=== PATIENT | male | born 1975 | race Caucasian/White ===

== ENCOUNTER 2018-04-14 21:21 | Emergency (ER) | payer OTHER, SELFPAY ==
[2018-04-14] VITALS (20 sets, daily range): BP systolic 106–144; BP diastolic 63–89; PULSE 68–91; RESP 14–32; TEMP 36.5; O2SAT 92–96
--- NOTE | 2018-04-14 21:28 | DI.RAD_ITS ---
SYMPTOM/DIAGNOSIS: LEFT UPPER CHEST PAIN CHEST X-RAY: PA and lateral. Comparison 01/12/16. The heart is normal in size. The lungs are clear. The mediastinal structures and pleura appear intact. CONCLUSION: Normal chest.
--- NOTE | 2018-04-14 21:29 | W.ED.GENAD ---
Discharge Plan Disposition Patient Disposition: HOME Condition: Improving Discharge Details Chief Complaint: Chest Pain Clinical Impression: Atypical chest pain Primary Care Provider: Sharon Sanchez ED Provider: John Abbott Home Meds and New Rx's Prescriptions: Continue ustekinumab [Stelara] 90 MG/ML syringe 90 mg SQ DIRECTED RF: 0 Discharge Instructions Instructions: Chest Pain (ED) Additional Instructions: Return if you develop recurrent chest discomfort, shortness of breath, or any other acute concerns Medical Decision Making 42-year-old male presents the emergency department complaining of the abrupt onset of left anterior chest pain while cleaning his hot tub this evening. 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 He states he is no longer using illicit drugs. He arrives with improved chest pain. His vital signs are normal. Differential diagnosis includes atypical chest pain, chest wall strain, ACS. Patient placed in playground monitor, labs obtained, referred for EKG and chest XR. Diagnostics are unremarkable. Patient observed on playground monitor with repeat troponin obtained and negative as well. No further episodes of chest pain. Stable and appropriate discharged home. ECG Data Attestation: I personally reviewed and interpreted this ECG (s) as follows: Interpretation: Normal sinus rhythm, rate of 85, QRS is narrow, no ST segment elevation. q waves present in I and aVL HPI General Date/Time Provider Initiated Documentation: 04/14/18 21:22. Limitations to Documentation: no limitations. Information obtained by: patient. History of Present Illness 42 year old M presents to the emergency department with the chief complaint of Left-sided chest pain, described as moderate, Quality is described as dull, and is localized to the chest and left. Patient reports no radiation. Patient started experiencing this minute(s) and it has been now resolved. No relieving factors improve symptom(s), No exacerbating factors reported . Patient notes diaphoresis; denies headaches, shortness of breath and syncope. HPI Narrative: 42-year-old male states he was cleaning out his hot tub when he abruptly developed left-sided anterior dull chest pain. It was nonradiating. Associated with diaphoresis. Did not have any shortness of breath. He did not note any palpitations. He states that he has recently been well. No lower extremity pain or swelling peer Related Data Home Medications Medication Instructions Recorded Confirmed ustekinumab [Stelara] 90 mg SQ DIRECTED 01/05/14 04/14/18 Allergies Allergy/AdvReac Type Severity Reaction Status Date / Time No Known Allergies Allergy Unverified 04/14/18 21:32 General Stated Complaint: Chest Pain GARLAND: 3 Review of Systems Review of Systems 8 systems reviewed and otherwise negative [facility] Social History Smoking/Tobacco Use Status: Current every day Exam Narrative Exam Narrative: GEN: awake, alert, oriented 3. Pleasant, well groomed, interactive. HEAD: Normocephalic, atraumatic ENT: Mucous membranes moist, oropharynx unremarkable, External ear exam unremarkable EYES: PERRL, EOMI NECK: Full ROM, no BHAVIN, no menigismus CHEST/RESP: Nontender, clear to auscultation bilateral, no wheeze/rhonchi/rales CARDIOVASCULAR: RRR, no murmur, rub peg. 2+ Rad pulse bilateral ABDOMEN: Soft, nontender, no mass. +Bowel sounds EXT: Full ROM, no edema, no rash Neuro: Grossly normal neurologic exam, conversant, interactive. Psych: Speech fluent, thoughts congruent, affect normal Course Vital Signs Temperature 36.5 C 04/14/18 21:26 Pulse 89 04/14/18 21:26 Respiratory Rate 16 04/14/18 21:26 Blood Pressure 144/89 H 04/14/18 21:26 Pulse Oximetry 96 04/14/18 21:26 Temperature 36.5 C 04/14/18 21:26 Temperature Source Skin 04/14/18 21:26 Pulse 89 04/14/18 21:26 Respiratory Rate 16 04/14/18 21:26 Blood Pressure 144/89 H 04/14/18 21:26 Pulse Oximetry 96 04/14/18 21:26 Pain Level 2 04/14/18 21:26
--- NOTE | 2018-04-14 21:32 | ED.GENADUL_ITS ---
Discharge Plan Disposition Patient Disposition: HOME Condition: Improving Discharge Details Chief Complaint: Chest Pain Clinical Impression: Atypical chest pain Primary Care Provider: Sharon Sanchez ED Provider: John Abbott Home Meds and New Rx's Prescriptions: Continue ustekinumab [Stelara] 90 MG/ML syringe 90 mg SQ DIRECTED RF: 0 Discharge Instructions Instructions: Chest Pain (ED) Additional Instructions: Return if you develop recurrent chest discomfort, shortness of breath, or any other acute concerns Medical Decision Making 42-year-old male presents the emergency department complaining of the abrupt onset of left anterior chest pain while cleaning his hot tub this evening. 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 He states he is no longer using illicit drugs. He arrives with improved chest pain. His vital signs are normal. Differential diagnosis includes atypical chest pain, chest wall strain, ACS. Patient placed in [facility] cardiac rehab, labs obtained, referred for EKG and chest XR. Diagnostics are unremarkable. Patient observed on rn cardiac rehab with repeat troponin obtained and negative as well. No further episodes of chest pain. Stable and appropriate discharged home. ECG Data Attestation: I personally reviewed and interpreted this ECG (s) as follows: Interpretation: Normal sinus rhythm, rate of 85, QRS is narrow, no ST segment elevation. q waves present in I and aVL HPI General Date/Time Provider Initiated Documentation: 04/14/18 21:22 . Limitations to Documentation: no limitations . Information obtained by: patient . History of Present Illness 42 year old M presents to the emergency department with the chief complaint of Left-sided chest pain, described as moderate, Quality is described as dull, and is localized to the chest and left. Patient reports no radiation. Patient started experiencing this minute(s) and it has been now resolved. No relieving factors improve symptom(s), No exacerbating factors reported . Patient notes diaphoresis; denies headaches, shortness of breath and syncope. HPI Narrative: 42-year-old male states he was cleaning out his hot tub when he abruptly developed left-sided anterior dull chest pain. It was nonradiating. Associated with diaphoresis. Did not have any shortness of breath. He did not note any palpitations. He states that he has recently been well. No lower extremity pain or swelling peer Related Data Home Medications Medication Instructions Recorded Confirmed ustekinumab [Stelara] 90 mg SQ DIRECTED 01/05/14 04/14/18 Allergies Allergy/AdvReac Type Severity Reaction Status Date / Time No Known Allergies Allergy Unverified 04/14/18 21:32 General Stated Complaint: Chest Pain GARLAND: 3 Review of Systems Review of Systems 8 systems reviewed and otherwise negative [facility] Social History Smoking/Tobacco Use Status: Current every day Exam Narrative Exam Narrative: GEN: awake, alert, oriented 3. Pleasant, well groomed, interactive. HEAD: Normocephalic, atraumatic ENT: Mucous membranes moist, oropharynx unremarkable, External ear exam unremarkable EYES: PERRL, EOMI NECK: Full ROM, no BHAVIN, no menigismus CHEST/RESP: Nontender, clear to auscultation bilateral, no wheeze/rhonchi/rales CARDIOVASCULAR: RRR, no murmur, rub peg. 2+ Rad pulse bilateral ABDOMEN: Soft, nontender, no mass. +Bowel sounds EXT: Full ROM, no edema, no rash Neuro: Grossly normal neurologic exam, conversant, interactive. Psych: Speech fluent, thoughts congruent, affect normal Course Vital Signs Temperature 36.5 C 04/14/18 21:26 Pulse 89 04/14/18 21:26 Respiratory Rate 16 04/14/18 21:26 Blood Pressure 144/89 H 04/14/18 21:26 Pulse Oximetry 96 04/14/18 21:26 Temperature 36.5 C 04/14/18 21:26 Temperature Source Skin 04/14/18 21:26 Pulse 89 04/14/18 21:26 Respiratory Rate 16 04/14/18 21:26 Blood Pressure 144/89 H 04/14/18 21:26 Pulse Oximetry 96 04/14/18 21:26 Pain Level 2 04/14/18 21:26
[2018-04-14] MEDS: Normal Saline 1,000 ML 125 ML IV (21:37)
[2018-04-14 21:47] LABS: Abs Immature Grans 0.03 k/cumm (0.0-0.09); Absolute Basophil Count 0.05 k/cumm (0.0-0.2); Absolute Lymphocyte Count 2.65 k/cumm (1.2-3.4); Absolute Monocyte Count 0.83 k/cumm (0.11-0.7); Absolute Neutrophil Count 6.76 k/cumm (1.2-6.7); Basophils % 0.5; Eosinophils % 2.8; HCT 47.8 % (40.0-50.0); HGB 17.1 g/dL (13.5-17.5); Immature Grans % 0.3; Mean Corp. HGB Concentration 35.8 g/dL (32.0-36.0); Mean Corpuscular Hemoglobin 31.4 pg (27.0-33.0); Mean Corpuscular Volume 87.7 fL (80-95); Monocytes % 7.8; Neutrophils % 63.6; Platelet Count 261 x1000/uL (130-400); RBC 5.45 m/cumm (4.50-6.00); RBC Distribution Width 12.6 % (11.8-14.1); White Blood Cell Count 10.62 k/cumm (4.4-10.8)
[2018-04-14 22:00] LABS: ALT 134 U/L (12-78); AST 53 U/L (15-37); Albumin 3.6 g/dL (3.4-5.0); Alkaline Phosphatase 61 U/L (46-116); Anion Gap 9.6 mmol/L (3-11); BUN 12 mg/dL (7-18); Bilirubin, Total 0.4 mg/dL (0.2-1.0); CO2 25.4 mmol/L (21.0-32.0); CREATININE 1.17 mg/dL (0.70-1.30); Calcium 9.1 mg/dL (8.5-10.1); Chloride 101 mmol/L (98-107); Glucose 112 mg/dL (70-100); Sodium 136 mmol/L (136-145); Total Protein 7.4 g/dL (6.4-8.2)
[2018-04-14 22:01] LABS: Troponin I < 0.02 ng/mL (0.00-0.06)
--- NOTE | 2018-04-14 22:10 | DI.VRAD_ITS ---
EXAM: XR Chest, 2 Views EXAM DATE/TIME: 04/14/2018 9:30 PM CLINICAL HISTORY: 42 years old, male; Pain; Chest pain; Patient HX: Lt upper chest pain TECHNIQUE: XR of the chest, 2 views. COMPARISON: CR CHEST 2 VIEWS PA,LAT 01/12/2016 11:31 PM FINDINGS: Lungs: Patchy atelectatic changes seen within the left lower lobe of the lung unchanged compared to prior chest x-ray of 01/12/16. There is no evidence of focal pulmonary consolidation. The pulmonary vasculature is normal. Pleural space: There is no evidence of pneumothorax. There are no pleural effusions present. Heart/Mediastinum: The cardiac silhouette is within normal limits. The mediastinum is normal. Bones/joints: The spine, sternum, ribs, and pectoral girdles show no evidence of acute abnormality Soft tissues: There are no soft tissue masses or calcifications. IMPRESSION: No active cardiopulmonary disease . Dictated and Authenticated by: Hardik Dawson MD. Ordering:SUKHDEEP MONTERROSO MD
[2018-04-15] VITALS (12 sets, daily range): BP systolic 117–125; BP diastolic 60–82; PULSE 65–76; RESP 15–24; TEMP 36.5; O2SAT 95–97
[2018-04-15 00:43] LABS: Troponin I < 0.02 ng/mL (0.00-0.06)
== END 2018-04-15 01:28 | disposition home or self-care (01) ==
PROVIDERS: Emergency Provider Emergency Medicine; PCP Nurse Practitioner Family
DX: R07.89 Other chest pain (principal); I25.2 Old myocardial infarction
CPT/HCPCS: 36415; 80053; 93005; 96361; 99285; 71046; 84484; 85025; 93010; 99284

== ENCOUNTER 2018-08-20 16:23 | Outpatient (CLI) | payer OTHER, SELFPAY ==
--- NOTE | 2018-08-20 13:07 | DI.RAD_ITS ---
SYMPTOM/DIAGNOSIS: LOW BACK PAIN, M54.5, LT LEG NUMBNESS, H/O BACK SURGERY LUMBAR SPINE: The bony structures are normally mineralized. There is narrowing of the L 4-5 disc interspace and partial sacralization of L 1 is demonstrated. The posterior elements are intact. The sacrum and sacroiliac joints are unremarkable save for mild SI joint DJD. SUMMARY: There is some narrowing of the L 4-5 disc interspace. The bony structures are well maintained. There are some degenerative facet joint changes in the lower lumbar spine. There is no evidence of spondylosis or spondylolisthesis. If there is any further specific clinical question regarding the status of this patient, then further assessment with MRI might be considered.
== END 2018-08-20 16:43 ==
PROVIDERS: PCP Nurse Practitioner Family; Visit Provider Registered Nurse
DX: M54.5 Low back pain (principal); R20.0 Anesthesia of skin; M51.36 Other intervertebral disc degeneration, lumbar region; Z98.890 Other specified postprocedural states
CPT/HCPCS: 72110

== ENCOUNTER 2018-08-27 01:41 | Emergency (ER) | payer OTHER, SELFPAY ==
[2018-08-27 01:42] VITALS: BP 123/72; PULSE 97; RESP 18; TEMP 36.2; O2SAT 97
--- NOTE | 2018-08-27 01:58 | ED.GENADUL_ITS ---
Discharge Plan Disposition Patient Disposition: HOME Condition: Improving Discharge Details Chief Complaint: Nk/Back Pain Clinical Impression: Acute left-sided back pain with sciatica Primary Care Provider: Sharon Sanchez ED Provider: John Abbott Home Meds and New Rx's Prescriptions: New prednisone 10 mg tablet 10 mg PO DAILY Qty: 45 RF: 0 Continued Stelara 90 MG/ML syringe 90 mg SQ DIRECTED RF: 0 cyclobenzaprine 10 mg Tablet 10 mg PO DAILY RF: 0 gabapentin 600 mg Tablet 600 mg PO HS RF: 0 prednisone 50 mg Tablet 50 mg PO DAILY RF: 0 oxycodone 5 mg Tablet 10 mg PO QID PRN (Reason: Pain) RF: 0 Discharge Instructions Instructions: Back Pain (ED) Additional Instructions: Home to rest this evening. You received narcotic and should not drive for at least 2 hours. Remove the Lidoderm patch in 12 hours. Continue prednisone and then taper off as per todays prescription. We will ask our care management team to make an outpatient follow-up for you. Return if you develop leg weakness, numbness, change to urination, or any other acute concerns. Medical Decision Making 43-year-old male with known degenerative disease of the spine. He underwent x- ray on August 20 that revealed L4-5 disc narrowing and degenerative changes. He has had chronic back pain for nearly a week, taking Percocet, Flexeril, gabapentin and on his last day of prednisone. Increased pain in the left low back radiates to the leg this evening. No motor dysfunction, no numbness or tingling, no change to urine/incontinence. IV placed, patient given parenteral medications: Solu-Medrol, ketorolac, 1 mg of Dilaudid. He was improved and able to rest. He has been taking prednisone 50 mg daily and I will extended by 3 days and then taper. He is given a Lidoderm patch which she will remove in 12 hours. We will ask our care management team to arrange an outpatient follow-up for him in clinic. He may need referral back to spine surgery and consideration of outpatient MRI. Discussed with him return precautions including weakness, urinary changes. HPI General Mode of arrival: ambulatory . Date/Time Provider Initiated Documentation: 08/27/18 01:43 . Limitations to Documentation: no limitations . History of Present Illness 43 year old M presents to the emergency department with the chief complaint of Left low back pain, described as moderate, severe and similar to prior episodes, Quality is described as stabbing and aching, and is localized to the back and left. Patient distal. Patient started experiencing this hour(s) and it has been constant. No relieving factors improve symptom(s), No exacerbating factors reported . Patient notes no other symptoms. and other (Patient has been ambulatory. No change to urination. No numbness or tingling of the left lower extremity.). Patient did receive the following treatments prior to arrival, other (Flexeril, gabapentin, oxycodone, prednisone) Related Data Home Medications Medication Instructions Recorded Confirmed Stelara 90 mg SQ DIRECTED 01/05/14 08/27/18 cyclobenzaprine 10 mg PO DAILY 08/27/18 08/27/18 gabapentin 600 mg PO HS 08/27/18 08/27/18 oxycodone 10 mg PO QID PRN 08/27/18 08/27/18 prednisone 10 mg PO DAILY #45 tab 08/27/18 prednisone 50 mg PO DAILY 08/27/18 08/27/18 Previous Rx's Medication Instructions Recorded prednisone 10 mg PO DAILY #45 tab 08/27/18 Allergies Allergy/AdvReac Type Severity Reaction Status Date / Time No Known Allergies Allergy Unverified 04/14/18 21:32 General Stated Complaint: Nk/Back Pain GARLAND: 3 Review of Systems Review of Systems 8 systems reviewed and otherwise neg PFSH Medical History History of nephrolithotomy with removal of calculi (Acute) Psoriasis (Chronic) Surgical History History of lumbar surgery (Acute) Social History Smoking/Tobacco Use Status: Current every day Tobacco Type: cigarettes Tobacco: How many years used: 25 Alcohol Intake: current Alcohol Intake frequency: holidays/special occasions only Drug use: Never Substance use type: does not use Do you feel safe at home: Yes Do you feel safe in your relationship?: Yes Exam Narrative Exam Narrative: GEN: awake, alert, oriented 3. Pleasant, well groomed, interactive. HEAD: Normocephalic, atraumatic ENT: Mucous membranes moist, oropharynx unremarkable, External ear exam unremarkable EYES: PERRL, EOMI NECK: Full ROM, no BHAVIN, no menigismus CHEST/RESP: Nontender, clear to auscultation bilateral, no wheeze/rhonchi/rales CARDIOVASCULAR: RRR, no murmur, rub peg. 2+ Rad pulse bilateral ABDOMEN: Soft, nontender, no mass. +Bowel sounds Back: Diffusely tender in the lumbar spine. No step-off or deformity. EXT: Full ROM, no edema, no rash. Motor is 5 out of 5 including dorsiflexion of the feet and great toes. Sensation intact throughout including saddle distribution. Neuro: Grossly normal neurologic exam, conversant, interactive. Psych: Speech fluent, thoughts congruent, affect normal Course Vital Signs Temperature 36.2 C L 08/27/18 01:42 Pulse 97 H 08/27/18 01:42 Respiratory Rate 18 08/27/18 01:42 Blood Pressure 123/72 08/27/18 01:42 Pulse Oximetry 97 08/27/18 01:42 Temperature 36.2 C L 08/27/18 01:42 Temperature Source Temporal Artery Scan 08/27/18 01:42 Pulse 97 H 08/27/18 01:42 Respiratory Rate 18 08/27/18 01:42 Respiratory Effort 08/27/18 01:42 Blood Pressure 123/72 08/27/18 01:42 Blood Pressure Position Sitting 08/27/18 01:42 Pulse Oximetry 97 08/27/18 01:42 Oxygen Delivery Method Room Air 08/27/18 01:42 Oxygen Flow Rate 0 08/27/18 01:42 Pain Level 10 08/27/18 01:46
[2018-08-27] MEDS: Ketorolac 30 MG/ML VIAL IVP (02:02)
[2018-08-27] MEDS: HYDROmorphone 2 MG/ML VIAL 1 MG IVP (02:03)
[2018-08-27] MEDS: methylPREDNISolone SUCC 125 MG VIAL IVP (02:03)
[2018-08-27] MEDS: Lidocaine 5% Patch 1 PATCH TP (02:21)
[2018-08-27 02:55] VITALS: PULSE 79; O2SAT 94
--- NOTE | 2018-08-27 10:19 | PDOC.ERCMPRO ---
Care Management Progress Note 08/27-Dr. Abbott requested assistance with a PCP (Marcela Sanchez) f/u within one week for back pain/disc bulge. This CM called [facility] and spoke with Kadi. Kadi has scheduled [facility] for 09/06 at 1420. Kadi stated they have a copy of the ED note already. [facility].
== END 2018-08-27 02:55 | disposition home or self-care (01) ==
PROVIDERS: Emergency Provider Emergency Medicine; PCP Nurse Practitioner Family
DX: M54.42 Lumbago with sciatica, left side (principal)
CPT/HCPCS: 96374; 96375; 99284; J1885; J2930

== ENCOUNTER 2018-10-09 21:25 | Emergency (ER) | payer OTHER, SELFPAY ==
[2018-10-09 21:29] VITALS: BP 128/91; PULSE 104; RESP 20; TEMP 37; O2SAT 98
--- NOTE | 2018-10-09 21:32 | ED.GENADUL_ITS ---
Discharge Plan Disposition Patient Disposition: HOME Condition: Stable Discharge Details Chief Complaint: GenMedical Clinical Impression: Right flank pain Primary Care Provider: Sharon Sanchez ED Provider: Augusto Galeano Home Meds and New Rx's Prescriptions: No Action Stelara 90 MG/ML syringe 90 mg SQ DIRECTED RF: 0 cyclobenzaprine 10 mg Tablet 10 mg PO DAILY RF: 0 gabapentin 600 mg Tablet 600 mg PO HS RF: 0 prednisone 50 mg Tablet 50 mg PO DAILY RF: 0 oxycodone 5 mg Tablet 10 mg PO QID PRN (Reason: Pain) RF: 0 prednisone 10 mg tablet 10 mg PO DAILY Qty: 45 RF: 0 Discharge Instructions Instructions: Flank Pain (ED) Additional Instructions: your lab work and cat scan did not show any concerning findings follow up with your primary care provider if symptoms continue in 1-2 weeks if symptoms worsen, you have new symptoms such as high fevers or inability to urinate return to the emergency department Medical Decision Making 43 yo male comes in with intermittent right lower back pain radiating to the groin for 3 days and states he had a kidney stone years ago that feels similar to this. denies any dificulty urinating or burning of uriantiong. No abdominal tenderness. Has intact cremasteric reflex, no swelling or tenderness of the testicle so doubt torsion at this time. Suspect possible kidney stone vs muscle spasm, will obtain imaging to evaluate. labs and imaging unremarkable, pt remains stable and pain has improved. Could have been muscle spasm given pain has improved and negative w/u. No weakness or saddle anesthesia or urinary retention so doubt cauda equina. Will d/c and advised f/u with pcp and return precautions given Differential Diagnosis kidney stone, hernia, epididymitis Medical Records Medical records reviewed: Yes I reviewed the patient's medical records. Imaging Data Radiologic Study: Attestation: I personally reviewed and interpreted this imaging study as follows: Imaging: CT Scan Radiologist's impression: no acute findings Lab Data Lab results reviewed: Yes I reviewed the patient's lab results. HPI General Mode of arrival: ambulatory . Date/Time Provider Initiated Documentation: 10/09/18 21:27 . Limitations to Documentation: no limitations . Information obtained by: patient . History of Present Illness 43 year old M presents to the emergency department with the chief complaint of lower back pain radiating to the groin, described as moderate, Quality is described as stabbing, Patient reports radiation to back. Patient started experiencing this day(s) (3) and it has been constant. No relieving factors improve symptom(s), No exacerbating factors reported . Patient notes no other symptoms.. Patient did receive the following treatments prior to arrival, none Related Data Home Medications Medication Instructions Recorded Confirmed Stelara 90 mg SQ DIRECTED 01/05/14 08/27/18 cyclobenzaprine 10 mg PO DAILY 08/27/18 08/27/18 gabapentin 600 mg PO HS 08/27/18 08/27/18 oxycodone 10 mg PO QID PRN 08/27/18 08/27/18 prednisone 10 mg PO DAILY #45 tab 08/27/18 prednisone 50 mg PO DAILY 08/27/18 08/27/18 Previous Rx's Medication Instructions Recorded prednisone 10 mg PO DAILY #45 tab 08/27/18 Allergies Allergy/AdvReac Type Severity Reaction Status Date / Time No Known Allergies Allergy Unverified 04/14/18 21:32 General GARLAND: 3 Review of Systems Review of Systems All systems reviewed & are unremarkable except as noted in HPI and below Constitutional Denies chills, Denies fever(s) and Denies weakness Cardiovascular Denies chest pain and Denies dyspnea Respiratory Denies cough and Denies dyspnea Gastrointestinal Denies abdominal pain and Denies vomiting Genitourinary Denies dysuria Neurologic Denies weakness [facility] Medical History History of nephrolithotomy with removal of calculi (Acute) Psoriasis (Chronic) Surgical History History of lumbar surgery (Acute) Social History Smoking/Tobacco Use Status: Current every day Tobacco Type: cigarettes Tobacco: How many years used: 25 Alcohol Intake: current Alcohol Intake frequency: holidays/special occasions only Drug use: Never Substance use type: does not use Do you feel safe at home: Yes Do you feel safe in your relationship?: Yes Exam Const General: no acute distress Orientation: alert HENMT Head: normal to inspection Ears: external ears normal General nose exam: external nose normal Mouth: moist mucous membranes Eyes General: appearance normal, both eyes and all related structures Neck Neck: normal visual inspection Resp Effort & Inspection: normal respiratory effort and able to speak in complete sentences Cardio Rate: regular rate Penis: normal penis (has piercing in place without signs of infection) Skin General skin exam: no rashes or lesions noted Neuro General: alert and oriented x3 Extrem General: normal to inspection Psych Mental Status: mental status grossly normal
[2018-10-09] MEDS: Ketorolac 15 MG/ML VIAL IVP (21:51)
[2018-10-09 21:58] LABS: Abs Immature Grans 0.01 k/cumm (0.0-0.09); Absolute Basophil Count 0.06 k/cumm (0.0-0.2); Absolute Eosinophil Count 0.32 k/cumm (0.0-0.7); Absolute Lymphocyte Count 3.45 k/cumm (1.2-3.4); Absolute Monocyte Count 0.96 k/cumm (0.11-0.7); Basophils % 0.5; Eosinophils % 2.6; HCT 47.8 % (40.0-50.0); Immature Grans % 0.1; Lymphocytes % 28.1; Mean Corp. HGB Concentration 35.6 g/dL (32.0-36.0); Mean Corpuscular Hemoglobin 31.1 pg (27.0-33.0); Mean Corpuscular Volume 87.4 fL (80-95); Mean Platelet Volume 9.2 fL (8.0-11.0); Monocytes % 7.8; Neutrophils % 60.9; Platelet Count 252 x1000/uL (130-400); RBC 5.47 m/cumm (4.50-6.00); RBC Distribution Width 12.7 % (11.8-14.1); White Blood Cell Count 12.29 k/cumm (4.4-10.8)
[2018-10-09 22:00] LABS: Absolute Neutrophil Count 7.48 k/cumm (1.2-6.7)
--- NOTE | 2018-10-09 22:00 | DI.CT_ITS ---
SYMPTOM/DIAGNOSIS: RT FLANK PAIN A CT examination of the abdomen and pelvis was performed without contrast using renal colic protocol. The liver and spleen are normal in size and shape with no evidence of any focal defects. There is no evidence of biliary dilatation. The gallbladder has a normal CT appearance. The pancreas appears intact and is not enlarged. There is slight prominence of para-aortic and paracaval lymph nodes without bulky adenopathy. The bladder appears intact. The kidneys show bilateral function and there is no evidence of a renal mass. The vascular structures appear intact. There is no evidence of a mass in the pelvis. There is no evidence of a fluid collection or adenopathy. CONCLUSION: No evidence of urinary tract obstruction or calcification. No evidence of appendicitis.
--- NOTE | 2018-10-09 22:10 | DI.VRAD_ITS ---
EXAM: CT Abdomen and Pelvis Without Contrast EXAM DATE/TIME: 10/09/2018 9:31 PM CLINICAL HISTORY: 43 years old, male; Abdominal pain; Flank; Right; Patient HX: HX of kidney stones. TECHNIQUE: Imaging protocol: Axial computed tomography images of the abdomen and pelvis without contrast. Coronal and sagittal reformatted images were created and reviewed. Radiation optimization: All CT scans at this facility use at least one of these dose optimization techniques: automated exposure control; mA and/or kV adjustment per patient size (includes targeted exams where dose is matched to clinical indication); or iterative reconstruction. COMPARISON: No relevant prior studies available. FINDINGS: ABDOMEN: Liver: No suspicious lesions. Gallbladder and bile ducts: No acute or concerning findings. Pancreas: Unremarkable. Spleen: No suspicious lesions. Adrenals: Unremarkable. No suspicious nodule. Kidneys and ureters: Unremarkable. No hydro. No suspicious lesions. Stomach and bowel: Unremarkable. No inflammed or dilated loops. Appendix: Normal appendix. PELVIS: Bladder: Unremarkable as visualized. Reproductive: Unremarkable as visualized. ABDOMEN and PELVIS: Intraperitoneal space: No free air. No significant fluid collection. Bones/joints: No acute fracture. No dislocation. Soft tissues: Unremarkable. Vasculature: Unremarkable. Lymph nodes: Unremarkable. IMPRESSION: No acute findings. Dictated and Authenticated by: Hector Siu MD. Ordering:MIROSLAVA Casas MD
[2018-10-09 22:11] LABS: ALT 169 U/L (12-78); AST 75 U/L (15-37); Albumin 3.8 g/dL (3.4-5.0); Alkaline Phosphatase 73 U/L (46-116); Anion Gap 11.5 mmol/L (3-11); BUN 10 mg/dL (7-18); Bilirubin, Total 0.4 mg/dL (0.2-1.0); CO2 25.5 mmol/L (21.0-32.0); CREATININE 1.03 mg/dL (0.70-1.30); Calcium 9.4 mg/dL (8.5-10.1); Chloride 102 mmol/L (98-107); Glucose 120 mg/dL (70-100); Lipase 268 U/L (73-393); Magnesium 2.1 mg/dL (1.8-2.4); Potassium 4.5 mmol/L (3.5-5.1); Sodium 139 mmol/L (136-145); Total Protein 7.3 g/dL (6.4-8.2)
[2018-10-09] MEDS: Normal Saline 1,000 ML 1000 ML IV (22:24)
[2018-10-09 22:32] LABS: Bilirubin Negative (Negative); Blood Negative (Negative); Clarity Clear; Glucose Negative (Negative); Ketones Trace mg/dL (Negative); Leukocyte Esterase Negative (Negative); Nitrite Negative (Negative); Specific Gravity 1.025 (1.005-1.025)
[2018-10-09 23:05] VITALS: BP 120/78; PULSE 89; RESP 18; RESP 20; O2SAT 96
[2018-10-11 14:41] LABS: Chlamydia Result Negative; GC Result Negative; Specimen Description URINE
== END 2018-10-09 23:09 | disposition home or self-care (01) ==
PROVIDERS: Emergency Provider Emergency Medicine; PCP Nurse Practitioner Family
DX: R10.11 Right upper quadrant pain (principal); Z87.442 Personal history of urinary calculi
CPT/HCPCS: 36415; 80053; 83690; 87491; 87591; 96374; 99284; 74176; 81003; 83735; 85025; J1885

== ENCOUNTER 2018-11-15 01:47 | Outpatient (CLI) | payer OTHER, SELFPAY ==
[2018-11-15] MEDS: Gadoterate meglumine 20 ML VIAL IVP (14:37)
[2018-11-15] MEDS: Normal Saline Flush 10 ML SYR IVP (14:39)
--- NOTE | 2018-11-15 15:09 | DI.MRI_ITS ---
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 Comparison is 11/05/15. The conus medullaris has a normal appearance and location. At L5-S1, there is disc desiccation. There are endplate degenerative signal changes present. There is a large left paracentral disc herniation with extrusion posterior to the S1 vertebral body. There is left lateral recess stenosis causing compression of the left S1 nerve root and probable compression of the left S2 nerve root. There is mild to moderate central spinal canal stenosis. There are degenerative changes of the facets present. There is mild to moderate bilateral neural foraminal stenosis. The remaining disc levels in the lumbar spine show no focal disc herniation, central spinal canal or neural foraminal stenosis. Apart from the degenerative endplate signal changes, there is normal marrow signal. No enhancing masses are seen following contrast administration. IMPRESSION: 1. Residual or recurrent left paracentral extruded disc at L5-S1 causing left lateral recess stenosis and compressing the left S1 nerve root and possible left S2 nerve root. 2. Degenerative changes at L5-S1. This in conjunction with the extruded disc causes moderate central spinal canal stenosis and bilateral neural foraminal stenosis.
== END 2018-11-15 02:07 ==
PROVIDERS: PCP Nurse Practitioner Family; Visit Provider Nurse Practitioner Family
DX: M54.5 Low back pain (principal); M51.17 Intervertebral disc disorders with radiculopathy, lumbosacral region; M48.07 Spinal stenosis, lumbosacral region
CPT/HCPCS: 72158

== ENCOUNTER 2019-01-20 16:28 | Emergency (ER) | payer OTHER, SELFPAY ==
[2019-01-20] VITALS (22 sets, daily range): BP systolic 102–149; BP diastolic 58–104; PULSE 70–92; RESP 12–24; TEMP 37–38.1; O2SAT 93–97
--- NOTE | 2019-01-20 16:53 | DI.RAD_ITS ---
SYMPTOM/DIAGNOSIS: CHEST PAIN PA AND LATERAL CHEST: 01/20 The heart is normal in size. The lungs are clear. The mediastinal structures and pleura appear intact. CONCLUSION: Normal chest.
[2019-01-20 17:15] LABS: Abs Immature Grans 0.01 k/cumm (0.0-0.09); Absolute Basophil Count 0.04 k/cumm (0.0-0.2); Absolute Eosinophil Count 0.45 k/cumm (0.0-0.7); Absolute Lymphocyte Count 3.28 k/cumm (1.2-3.4); Absolute Monocyte Count 0.84 k/cumm (0.11-0.7); Absolute Neutrophil Count 4.18 k/cumm (1.2-6.7); Basophils % 0.5; Eosinophils % 5.1; HCT 45.7 % (40.0-50.0); HGB 16.4 g/dL (13.5-17.5); Immature Grans % 0.1; Lymphocytes % 37.3; Mean Corp. HGB Concentration 35.9 g/dL (32.0-36.0); Mean Corpuscular Hemoglobin 31.7 pg (27.0-33.0); Mean Corpuscular Volume 88.2 fL (80-95); Mean Platelet Volume 9.3 fL (8.0-11.0); Monocytes % 9.5; Neutrophils % 47.5; Platelet Count 237 x1000/uL (130-400); RBC 5.18 m/cumm (4.50-6.00); RBC Distribution Width 12.8 % (11.8-14.1)
--- NOTE | 2019-01-20 17:21 | ED.GENADUL_ITS ---
Discharge Plan Disposition Patient Disposition: HOME Discharge Details Chief Complaint: Chest Pain Clinical Impression: Chest pain Primary Care Provider: Sharon Sanchez ED Provider: Richie Vyas Home Meds and New Rx's Prescriptions: No Action Stelara 90 MG/ML syringe 90 mg SQ DIRECTED RF: 0 Discharge Instructions Instructions: Against Medical Advice (ED) Additional Instructions: You are leaving AGAINST MEDICAL ADVICE and may have life-threatening or lifestyle modifying disease. Please contact your primary care physician to arrange follow-up. Return to the ER for any worsening or new concerning symptoms or at any time for further work-up. Referrals: Sharon Sanchez [Primary Care Provider] - Discharge Data Discharge Date/Time-TO BE ENTERED AT DEPARTURE: 01/20/19 23:12 Medical Decision Making 17:25 -- 43yo m smoker with history of cocaine induced MN, here with chest pain today since waking. Denies sympathomimetic use in years. Screening ECG was reviewed and interpreted by me: Normal sinus rhythm 82 bpm, left axis deviation noted, no STEMI, nondiagnostic. Plan to check troponin and if negative delta troponin. PERC applies. --Chest x-ray interpreted by radiology as no acute finding Labs reviewed and nondiagnostic. Plan for delta troponin. I reviewed initial results and explained plan to patient --patient refusing to stay for additional diagnostic treatment. I had a discussion with the patient about my diagnostic/treatment plan. Patient declines plan and wishes to leave against medical advise. I reiterated my concerns to the patient and explained the risks of leaving prior to completion of workup and treatment. I specifically emphasized the possibility of life- threatening or lifestyle modifying disease that would not be appropriately treated if they leave. Patient verbalized understanding of my concerns and the potential for life threatening or lifestyle modifying disease. Patient has capacity to make informed decision. I again explained my concerns and urged Mr. Solorio to stay for treatment as outlined. He continued to refuse. I then discussed potential less ideal alternatives to diagnostic/treatment plan as outlines and patient refused. I recommended that he follow-up with primary care physician JESSICA or return to the Emergency Department at any time for further treatment. HPI General Mode of arrival: ambulatory . Date/Time Provider Initiated Documentation: 01/20/19 16:31 . Limitations to Documentation: no limitations . Information obtained by: patient . 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 Patient notes he woke up this morning around 7 AM with chest pain. Chest pain has been mild to moderate pain is been constant. No modifiers. He notes associated sweating and nausea today. No shortness of breath. No leg swelling. Pain does radiate from his left chest to his left shoulder. Pain is currently mild. No recent surgery. Related Data Home Medications Medication Instructions Recorded Confirmed Stelara 90 mg SQ DIRECTED 01/05/14 01/20/19 Allergies Allergy/AdvReac Type Severity Reaction Status Date / Time No Known Allergies Allergy Unverified 01/20/19 16:53 General Stated Complaint: Chest Pain GARLAND: 2 Review of Systems Review of Systems All systems reviewed & are unremarkable except as noted in HPI and below Cardiovascular Reports chest pain and Denies dyspnea Respiratory Denies dyspnea Gastrointestinal Reports nausea PFSH Medical History History of nephrolithotomy with removal of calculi (Acute) Psoriasis (Chronic) Surgical History History of lumbar surgery (Acute) Social History Smoking/Tobacco Use Status: Current every day Tobacco Type: cigarettes Tobacco: How many years used: 25 Alcohol Intake: current Alcohol Intake frequency: holidays/special occasions only Drug use: Never Substance use type: does not use Do you feel safe at home: Yes Do you feel safe in your relationship?: Yes Exam Const General: cooperative and no acute distress [facility] Head: normocephalic and atraumatic Mouth: moist mucous membranes Eyes Conjunctivae: normal conjunctivae Sclera: normal sclerae Neck Neck: trachea midline and supple Resp Auscultation: clear to auscultation bilaterally, no rales, no rhonchi and no wheezes Cardio Jugular venous pressure: no JVD Rate: regular rate and not tachycardic Rhythm: regular rhythm GI Palpation: soft, not firm, no guarding, no masses, not rigid and nontender Skin General skin exam: no rashes or lesions noted Neuro General: alert, awake, oriented x3 and tone normal Extrem General: no calf tenderness and no edema Psych Appearance: grossly normal Mental Status: mental status grossly normal Course Vital Signs Temperature 37.0 C 01/20/19 16:49 Pulse 89 01/20/19 16:49 Respiratory Rate 14 01/20/19 16:49 Blood Pressure 111/67 01/20/19 16:49 Pulse Oximetry 96 01/20/19 16:49 Temperature 37.0 C 01/20/19 16:49 Temperature Source Temporal Artery Scan 01/20/19 16:49 Pulse 89 01/20/19 16:49 Respiratory Rate 14 01/20/19 16:52 Respiratory Effort Non-Labored 01/20/19 16:52 Respiratory Depth Normal 01/20/19 16:52 Respiratory Pattern Normal 01/20/19 16:52 Blood Pressure 111/67 01/20/19 16:49 Blood Pressure Position Supine 01/20/19 16:49 Pulse Oximetry 96 01/20/19 16:49 Oxygen Delivery Method Room Air 01/20/19 16:49 Oxygen Flow Rate 0 01/20/19 16:49 Pain Level 1 01/20/19 16:52 Lab/Test Results Lab/Test Results: Laboratory Tests Range/Units 01/20/19 16:55 WBC (4.4-10.8) k/cumm 8.80 RBC (4.50-6.00) m/cumm 5.18 Hgb (13.5-17.5) g/dL 16.4 Hct (40.0-50.0) % 45.7 MCV (80-95) fL 88.2 MCH (27.0-33.0) pg 31.7 MCHC (32.0-36.0) g/dL 35.9 RDW (11.8-14.1) % 12.8 Plt Count (130-400) x1000/uL 237 MPV (8.0-11.0) fL 9.3 Immature Gran % 0.1 Neutrophils % 47.5 Lymphocytes % 37.3 Monocytes % 9.5 Eosinophils % 5.1 Basophils % 0.5 Absolute Neutrophils (1.2-6.7) k/cumm 4.18 Absolute Lymphocytes (1.2-3.4) k/cumm 3.28 Absolute Monocytes (0.11-0.7) k/cumm 0.84 H Absolute Eosinophils (0.0-0.7) k/cumm 0.45 Absolute Basophils (0.0-0.2) k/cumm 0.04
[2019-01-20 17:45] LABS: ALT 147 U/L (12-78); AST 60 U/L (15-37); Albumin 3.6 g/dL (3.4-5.0); Alkaline Phosphatase 62 U/L (46-116); BUN 16 mg/dL (7-18); Bilirubin, Total 0.4 mg/dL (0.2-1.0); Chloride 104 mmol/L (98-107); Glucose 136 mg/dL (70-100); Magnesium 1.9 mg/dL (1.8-2.4); Potassium 3.6 mmol/L (3.5-5.1); Sodium 140 mmol/L (136-145); Total Protein 7.2 g/dL (6.4-8.2); Troponin I < 0.05 ng/mL (0.00-0.06)
--- NOTE | 2019-01-20 17:46 | DI.VRAD_ITS ---
EXAM: XR Chest, 2 Views EXAM DATE/TIME: 01/20/2019 4:55 PM CLINICAL HISTORY: 43 years old, male; Other: Chest pain TECHNIQUE: Imaging protocol: XR of the chest, 2 views. COMPARISON: CR XR CHEST 2V PA LATERAL 04/14/2018 9:53 PM FINDINGS: Lungs: Unremarkable. No consolidation. Pleural space: Unremarkable. No pleural effusion. No pneumothorax. Heart/Mediastinum: Unremarkable. No cardiomegaly. Bones/joints: Unremarkable. IMPRESSION: No acute findings. Dictated and Authenticated by: Alex Vogel MD. Ordering:GIA Quiroz MD
== END 2019-01-20 23:12 | disposition home or self-care (01) ==
PROVIDERS: Emergency Provider Student in an Organized Health Care Education/Training Program; PCP Nurse Practitioner Family
DX: R07.9 Chest pain, unspecified (principal); Z53.29 Procedure and treatment not carried out because of patient's decision for other reasons
CPT/HCPCS: 36415; 80053; 93005; 96374; 99285; 71046; 83735; 84484; 85025; 93010

== ENCOUNTER 2019-08-06 06:50 | Outpatient (CLI) | payer OTHER, SELFPAY ==
--- NOTE | 2019-08-06 16:10 | DI.RAD_ITS ---
EXAM: XR SHOULDER LT COMPLETE 2+V CLINICAL HISTORY: PAIN LT SHOULDER M25.512. TECHNIQUE: 2D digital imaging was performed. COMPARISON: No exams were available for comparison FINDINGS: BONES: No acute fracture is present. No bony destructive lesion is seen. JOINTS: No dislocation present. SOFT TISSUE: Normal. There is a tiny calcification adjacent to the greater tuberosity, most suggestiv e of calcific tendinitis. IMPRESSION: Calcific tendinitis. DATA REPOSITORY: RADIATION DOSE DELIVERED:
== END 2019-08-06 07:10 ==
PROVIDERS: PCP Nurse Practitioner Family; Visit Provider Nurse Practitioner Family
DX: M25.512 Pain in left shoulder (principal); M75.32 Calcific tendinitis of left shoulder
CPT/HCPCS: 73030

== ENCOUNTER 2020-01-29 16:27 | Outpatient (REF) | payer OTHER, SELFPAY ==
--- NOTE | 2020-01-29 15:45 | UVULA_PTH ---
PATIENT: Bola Solorio LOC: [facility] U#:[id number] AGE/SX: 44/M ROOM: RE01/29/[address]: Joaquin Morrison MD : 1975 BED: DIS: 01/29/2020 SPEC #: [id number] RECD: 01/29/20 18:03 STATUS: SVITLANA REQ #: [id number] MARILYN: 01/29/20 15:[address]: Joaquin Morrison DEPT: Surgical Specimen RECD BY: Chelo Bruner ENTERED: 01/29/20 18:04 SP TYPE: UVULA OTHR DR: Sharon Sanchez Tissues: 1 - UVULA Procedures: SPECIAL STAIN 2 GROSS AND MICRO LEVEL 3 Comments:
== END 2020-01-29 16:47 ==
LOC: LBN 16:27
PROVIDERS: PCP Nurse Practitioner Family; Visit Provider Otolaryngology
DX: D10.39 Benign neoplasm of other parts of mouth (principal)
CPT/HCPCS: 88304; 88313

== ENCOUNTER 2020-05-06 06:33 | Outpatient (CLI) | payer OTHER, SELFPAY ==
--- NOTE | 2020-05-06 09:00 | ETT_ITS ---
APPROVED REPORT Exam: Exercise Treadmill Patient Location: Out-Patient Room/Bed: Stress Nurse: Brigitte Adan RN BMI: 37.30 Baseline Rhythm: Sinus Rhythm Indications: Chest pain. Medical History Medical History: CAD s/p SC Cardiac Medications: None. Allergies: No known drug allergies Cardiac Risk Factors: CVD, Smoking (current), Obesity Previous Cardiac Procedures: None. Pretest Chest Pain Characteristics: Patient denies. Exercise History: Sedentary Physical Disabilities: Back, Legs, Shoulder Lung Sounds: Clear to auscultation Heart Sounds: Regular Stress Test Details Test: Exercise stress testing was performed using a Shamar protocol. Rest Stress HR Resting HR Supine: 66 bpm Max Heart Rate (APMHR): 177 bpm Resting HR Standin bpm Target HR (85% APMHR): 150 bpm Max HR Achieved: 141 bpm % of APMHR: 79 Recovery HR: 90 bpm HR response to stress: Normal HR response to stress BP Resting BP Supine: 134/88 mmHg Resting BP Standin/86 mmHg Max BP: 154/60 mmHg Recovery BP: 140/86 mmHg BP response to stress: Normal blood pressure response to stress. ECG Resting ECG: Sinus Rhythm Ectopy: None. Stress ECG: Sinus Tachycardia ST Change: no significant ST segment changes noted. Arrhythmia: None. Recovery ECG: Sinus Rhythm Recovery ST Change: no significant ST segment changes noted. Recovery Arrhythmia: Rare PVC. Clinical Reason for Termination: Ortho pain. Stress Symptoms: None. Exercise duration: 6 min58 sec Highest Stage Reached: Stage 3: 3.4 mph at 14% grade. Exercise capacity: 8.54 METs Stress ECG Conclusion 1. The resting electrocardiogram showed left anterior fascicular block 2. The patient exercised on the treadmill and achieved a workload of 8.54 METS, limited by joint pain . There were no symptoms to suggest angina 3. Normal heart rate and blood pressure response to exercise. The patient achieved 79% of predicted heart rate for age. There were no significant dysrhythmias 4. Electrocardiographically the test was submaximal, but at this adequate workload there was no evide nce of myocardial ischemia Stress Test Summary STAGE Time (mins) Speed (mph) Grade (%) HR BP SYMPTOMS METS Supine 66 134/88 Standing 75 130/86 1 3 1.7 10 101 138/82 4.6 2 6 2.5 12 135 7 1 min recovery 128 154/60 3 min recovery 106 146/84 6 min recovery 90 140/86 Patient with mutiple ortho complaints. Constant movement and lead manipulation despite patient educat ion, making it difficult to read cardiac rhythm. Unable to get blood pressures during exercise due to patient unwilling to move arm in a way to obtain reading. Exercise stopped due to severe back pain a nd what appeared to be left foot drop. Patient would not return to stretcher for cool-down period due to complaints of back pain.
== END 2020-05-06 06:53 ==
PROVIDERS: PCP Nurse Practitioner Family; Visit Provider Internal Medicine Cardiovascular Disease
DX: R07.9 Chest pain, unspecified (principal); I25.10 Atherosclerotic heart disease of native coronary artery without angina pectoris; F17.210 Nicotine dependence, cigarettes, uncomplicated; E66.9 Obesity, unspecified; I44.4 Left anterior fascicular block
CPT/HCPCS: 93017

== ENCOUNTER 2020-09-12 13:06 | Emergency (ER) | payer OTHER, SELFPAY ==
[2020-09-12] VITALS (24 sets, daily range): BP systolic 104–120; BP diastolic 55–86; PULSE 55–73; RESP 10–23; TEMP 36; O2SAT 95–100
--- NOTE | 2020-09-12 13:00 | RT.EKG_ITS ---
APPROVED REPORT Exam: Resting ECG Patient Location: E HR:59 bpm ECG Measurements Heart Rate 59 AXIS NV 146 P -4 QRSd 91 QRS 77 QT 414 T 33 QTc 409 Conclusion Sinus bradycardia...rate< 60
--- NOTE | 2020-09-12 13:12 | ED.GENADUL_ITS ---
Discharge Plan Disposition Patient Disposition: AGAINST MEDICAL ADVICE Condition: Stable Discharge Details Clinical Impression: Chest pain Primary Care Provider: Sharon Sanchez ED Provider: Augusto Galeano Home Meds and New Rx's Prescriptions: Continued Stelara 90 MG/ML syringe 90 mg SQ DIRECTED RF: 0 gabapentin 300 mg capsule 300 mg PO DIRECTED PRNRF: 0 Discharge Instructions Instructions: Chest Pain (ED) Additional Instructions: your cat scans and initial lab work did not show any concerning findings, you chose to leave prior to having a repeat blood test to further evaluate for a heart attack follow up with your primary care provider as soon as possible if you have recurrent pain, difficulty breathing or feel more ill return to the emergency department Medical Decision Making 45 yo male with hx of prior VA per patient without stent placement, states had thrombectomy a few years ago, smoker, who comes in with chest pressure radiating to the back after using flonase and also having an argument with his . HE states he become sweaty and had nausea. He took 324mg aspirin and states his pain in the chest is gone but has a frontal headache that he describes as mild and slowly came on, did not come on suddenly. Denies fevers, chills, dyspnea, vomit. Has no diaphoresis here, soft non tender abdomen and no leg swelling or calf tenderness. No focal motor or sensation deficits. No meningismus. I suspect stress reaction likely from the argument, but will obtain troponin to evaluate for nstemi. Given the radiation to the back will obtain cta to evaluate for possible dissection, he is wells low and perc negative so doubt PE. His headache doesn't seem consistent with subarachnoid hemorrhage and no findings on history or exam to suggest robotic technician infection. Suspect tension headache but will image to evaluate for possible subdural. imaging and labs show no significant findings, he remains stable and has no symptoms now. I recommended at least staying for a 3 hour troponin vs observation admission but he declines this and is deciding to leave against my medical advise. He has capacity to make his own decisions and understands risks of missing an VA including and permanent disability and is willing to accept these risks. I advised the patient he can always return should he change his mind and to follow up with his primary care provider as soon as possible if he chooses not to return to the ED Differential Diagnosis Differential Diagnosis: nstemi, stress reaction, sdh, dissection Medical Records Medical records reviewed: Yes I reviewed the patient's medical records. Imaging Data Radiologic Study: Attestation: I personally reviewed and interpreted this imaging study as follows: Imaging: CT Scan Radiologist's impression: IMPRESSION: No acute intracranial abnormality Radiologic Study #2: Attestation: I personally reviewed and interpreted this imaging study as follows: Imaging: CT Scan Radiologist's impression: no acute findings chest ct Lab Data Lab results reviewed: Yes I reviewed the patient's lab results. ECG Data Attestation: I personally reviewed and interpreted this ECG (s) as follows: Prior ECG tracings: available for review Interpretation: sinus rhythm, rate of 60, pr 146, flattened t waves in inferior leads HPI General Mode of arrival: ambulatory . Date/Time Provider Initiated Documentation: 09/12/20 13:06 . Limitations to Documentation: no limitations . Information obtained by: patient . History of Present Illness 45 year old M presents to the emergency department with the chief complaint of chest pain, described as moderate, and is localized to the chest. Patient reports radiation to back. Patient started experiencing this hour(s) (1) and it has been now resolved. No relieving factors improve symptom(s), No exacerbating factors reported . Patient notes headaches. Patient did receive the following treatments prior to arrival, Aspirin Related Data Home Medications Medication Instructions Recorded Confirmed Stelara 90 mg SQ DIRECTED 01/05/14 09/12/20 gabapentin 300 mg PO DIRECTED PRN 09/12/20 09/12/20 Allergies Allergy/AdvReac Type Severity Reaction Status Date / Time No Known Allergies Allergy Unverified 09/12/20 13:15 General GARLAND: 2 Review of Systems All systems reviewed & are unremarkable except as noted in HPI and below Constitutional Constitutional: Denies chills, Denies fever(s) and Denies weakness Cardiovascular Cardiovascular: Denies dyspnea Respiratory Respiratory: Denies cough and Denies dyspnea Gastrointestinal Gastrointestinal: Denies abdominal pain and Denies vomiting Genitourinary Genitourinary: Denies dysuria Musculoskeletal Musculoskeletal: Denies joint swelling Integumentary/Breasts Skin/Breast: Denies rash Neurologic Neurologic: Denies weakness [facility] Medical History (Updated 09/12/20 @ 15:41 by Augusto Galeano MD) Chest pain Dyspnea on exertion History of nephrolithotomy with removal of calculi [facility] (myocardial infarction[facility] (myocardial infarction) Psoriasis Surgical History History of lumbar surgery Social History Smoking/Tobacco Use Status: Current every day Tobacco Type: cigarettes Tobacco: How many years used: 25 Smoking risk assessment performed?: Yes Alcohol Intake: current Alcohol Intake frequency: holidays/special occasions only Drug use: Never Substance use type: does not use Do you feel safe at home: Yes Do you feel safe in your relationship?: Yes Exam Const General: no acute distress Orientation: alert HENMT Head: normal to inspection Ears: external ears normal General nose exam: external nose normal Mouth: moist mucous membranes Eyes General: appearance normal, both eyes and all related structures Neck Neck: normal visual inspection Resp Effort & Inspection: normal respiratory effort and able to speak in complete sentences Cardio Rate: regular rate GI Palpation: soft, not rigid and nontender Skin General skin exam: no rashes or lesions noted Neuro General: patient alert and patient oriented x3 Extrem General: normal to inspection Psych Mental Status: mental status grossly normal
--- NOTE | 2020-09-12 13:15 | DI.CT_ITS ---
EXAM: CT THORAX CTA CLINICAL HISTORY: chest pain. TECHNIQUE: Imaging Protocol: CT angiography of the chest was performed using pulmonary embolus kevin col. Multi planar reconstructions were performed. CONTRAST MATERIAL: Intravenous: Omnipaque 350 Contrast volume: 100 cc COMPARISON: CT CT renal colic wo from 10/09/2018 FINDINGS: CHEST: PULMONARY ARTERIES: Bolus timing is less than optimal for assessment of the pulmonary arteries. Ther e are no obvious intraluminal filling defects to suggest acute pulmonary emboli. LUNGS: There are no infiltrates nor evidence of pulmonary infarction.. There are no pleural effusions . MEDIASTINUM: There is no hilar nor mediastinal adenopathy. Visualized thyroid unremarkable. CARDIAC: Heart size is upper normal. There is no pericardial effusion.Caliber of the thoracic aorta is within normal limits. There is no evidence of aortic dissection. There is no evidence of shift o f the interventricular septum. PARTIALLY VISUALIZED UPPERMOST ABDOMEN: Hepatic steatosis. OSSEOUS: No significant osseous lesions.. IMPRESSION: 1. Less than optimal bolus timing for evaluation of the pulmonary arterial tree. No evidence of obv ious acute pulmonary emboli. No evidence of pulmonary infarction.No pleural effusions. 2. No evidence of aortic dissection. No pericardial effusion. 3. Hepatic steatosis. RADIATION DOSE DELIVERED: LINK-TO-SR Total DLP DATA REPOSITORY: All CT scans at this facility are submitted to the National Radiology Data Registry (NRDR) Dose Index Registry (DIR) with the [employer] ([employer]). RADIATION OPTIMIZATION: All CT scans at this facility use at least one of these dose optimization te chniques: automated exposure control; mA and/or kV adjustment per patient size (includes targeted exa ms where dose is matched to clinical indication); or iterative reconstruction.
--- NOTE | 2020-09-12 13:15 | DI.CT_ITS ---
EXAM: CT HEAD WO CLINICAL HISTORY: headache. TECHNIQUE: Imaging Protocol: Axial computed tomography images with coronal and sagittal reformatted images were created and reviewed COMPARISON: CT HEAD WITHOUT STROKE PROTOCOL from 01/12/2016 FINDINGS: Ventricles and Extra axial spaces: Normal in size and morphology for the patient's age. Hemorrhage: None. Cerebral parenchyma: Normal. Midline shift: None. Brainstem/Cerebellum: Normal. Calvarium: Normal. Visualized Paranasal sinuses/Mastoids: Small mucous retention cyst or polyp in the left maxillary sin us. The remaining visualized paranasal sinuses and mastoid air cells are clear. Soft Tissues: Unremarkable. IMPRESSION: No acute intracranial process. RADIATION DOSE DELIVERED: 842.09mGy.cm Total DLP DATA REPOSITORY: All CT scans at this facility are submitted to the National Radiology Data Registry (NRDR) Dose Index Registry (DIR) with the [employer] ([employer]). RADIATION OPTIMIZATION: All CT scans at this facility use at least one of these dose optimization te chniques: automated exposure control; mA and/or kV adjustment per patient size (includes targeted exa ms where dose is matched to clinical indication); or iterative reconstruction.
[2020-09-12 13:27] LABS: Abs Immature Grans 0.04 10^3/uL (0.0-0.06); Absolute Basophil Count 0.06 10^3/uL (0.0-0.2); Absolute Eosinophil Count 0.25 10^3/uL (0.0-0.7); Absolute Lymphocyte Count 1.42 10^3/uL (1.2-3.4); Absolute Monocyte Count 0.53 10^3/uL (0.1-0.8); Absolute Neutrophil Count 8.26 10^3/uL (1.2-6.7); Basophils % 0.6; Eosinophils % 2.4; HCT 47.7 % (40.0-50.0); HGB 16.5 g/dL (13.5-17.5); Immature Grans % 0.4; Lymphocytes % 13.4; MCH 31.1 pg (27.0-33.0); MCHC 34.6 % (32.0-36.0); MPV 8.5 fL (8.0-11.0); Neutrophils % 78.2; Nucleated RBC 0 %; Platelet Count 264 10^3/uL (130-400); RDW 12.2 % (11.8-14.1); RDW-SD 40.2 fL; WBC 10.56 10^3/uL (4.4-10.8)
[2020-09-12 13:44] LABS: ALT 33 U/L (16-63); AST 17 U/L (15-37); Albumin 3.9 g/dL (3.4-5.0); Alkaline Phosphatase 80 U/L (46-116); Anion Gap 7.4 mmol/L (3-11); BUN 15 mg/dL (7-18); Bilirubin, Direct 0.2 mg/dL (0.0-0.2); Bilirubin, Total 0.3 mg/dL (0.2-1.0); CO2 29.6 mmol/L (21.0-32.0); CREATININE 1.3 mg/dL (0.70-1.30); Calcium 9.4 mg/dL (8.5-10.1); Chloride 104 mmol/L (98-107); Estimated GFR 59.97 (mL/min/1.73m2); Glucose 153 mg/dL (74-106); Magnesium 2.2 mg/dL (1.8-2.4); Potassium 5.1 mmol/L (3.5-5.1); Sodium 141 mmol/L (136-145); Total Protein 7.7 g/dL (6.4-8.2)
[2020-09-12 13:52] LABS: Troponin I < 0.05 ng/mL (<0.06)
[2020-09-12] MEDS: Omnipaque 350 MG/ML 100 ML BTL IJ (13:52)
[2020-09-12 13:54] LABS: PTT Activated 21.3 sec (21.0-27.5)
[2020-09-12] MEDS: Normal Saline Flush 10 ML SYR IVP (13:55)
[2020-09-12] MEDS: Normal Saline - Diluent 50 ML VIAL IV (13:57)
--- NOTE | 2020-09-12 14:28 | DI.VRAD_ITS ---
PROCEDURE INFORMATION: Exam: CT Head Without Contrast Exam date and time: 09/12/2020 1:28 PM Age: 45 years old Clinical indication: Other: Headache TECHNIQUE: Imaging protocol: Computed tomography of the head without contrast. Radiation optimization: All CT scans at this facility use at least one of these dose optimization techniques: automated exposure control; mA and/or kV adjustment per patient size (includes targeted exams where dose is matched to clinical indication); or iterative reconstruction. COMPARISON: CT HEAD WITHOUT STROKE PROTOCOL 01/12/2016 11:18 PM FINDINGS: Brain: Normal. No hemorrhage. Unremarkable white matter. No mass effect. Cerebral ventricles: No ventriculomegaly. Bones/joints: Unremarkable. No acute fracture. Paranasal sinuses: Visualized sinuses are unremarkable. No fluid levels. Mastoid air cells: Visualized mastoid air cells are well aerated. Soft tissues: Unremarkable. IMPRESSION: No acute intracranial abnormality. Dictated and Authenticated by: Inder Krishna MD. Ordering:MIROSLAVA Casas MD
--- NOTE | 2020-09-12 15:36 | DI.VRAD_ITS ---
PROCEDURE INFORMATION: Exam: CTA Chest With Contrast Exam date and time: 09/12/2020 1:58 PM Age: 45 years old Clinical indication: Other: Chest pain TECHNIQUE: Imaging protocol: Computed tomographic angiography of the chest with contrast. 3D rendering (Not supervised by radiologist): MIP and/or 3D reconstructed images were created by the technologist. Radiation optimization: All CT scans at this facility use at least one of these dose optimization techniques: automated exposure control; mA and/or kV adjustment per patient size (includes targeted exams where dose is matched to clinical indication); or iterative reconstruction. Contrast material: OMNIPAQUE 350; Contrast volume: 100 ml; Contrast route: INTRAVENOUS (IV); COMPARISON: CR XR CHEST 2V PA LATERAL 01/20/2019 5:32 PM FINDINGS: Pulmonary arteries: Normal. No pulmonary emboli. Aorta: Unremarkable. No aortic aneurysm. No aortic dissection. Lungs: Unremarkable. No consolidation. No masses. Pleural spaces: Unremarkable. No pneumothorax. No pleural effusion. Heart: Unremarkable. No cardiomegaly. No pericardial effusion. Lymph nodes: Unremarkable. No enlarged lymph nodes. Bones/joints: Unremarkable. No acute fracture. Soft tissues: Unremarkable. IMPRESSION: No acute findings. Dictated and Authenticated by: Inder Krishna MD. Ordering:MIROSLAVA Casas MD
== END 2020-09-12 15:53 | disposition left against medical advice (07) ==
PROVIDERS: Emergency Provider Emergency Medicine; PCP Nurse Practitioner Family
DX: R07.89 Other chest pain (principal); R11.0 Nausea; R51.9 Headache, unspecified; Z53.29 Procedure and treatment not carried out because of patient's decision for other reasons
CPT/HCPCS: 36415; 71275; 80053; 93005; 99285; 70450; 82248; 83735; 84484; 85025; 85610; 85730; 93010; 99284; J3490

== ENCOUNTER 2020-11-09 03:50 | Outpatient (CLI) | payer OTHER, SELFPAY ==
[2020-11-09 07:40] LABS: HCT 46.4 % (40.0-50.0); HGB 16.3 g/dL (13.5-17.5); MCH 30.9 pg (27.0-33.0); MCHC 35.1 % (32.0-36.0); MPV 8.5 fL (8.0-11.0); Platelet Count 263 10^3/uL (130-400); RBC 5.27 10^6/uL (4.36-5.78); RDW 12.1 % (11.8-14.1); RDW-SD 39.1 fL; WBC 8.47 10^3/uL (4.4-10.8)
[2020-11-09 08:23] LABS: Hemoglobin A1C 5.4 % (<5.7)
[2020-11-09 08:37] LABS: ALT 38 U/L (16-63); AST 38 U/L (15-37); Albumin 4.1 g/dL (3.4-5.0); Alkaline Phosphatase 91 U/L (46-116); Anion Gap 11.3 mmol/L (3-11); BUN 19 mg/dL (7-18); Bilirubin, Total 0.7 mg/dL (0.2-1.0); CO2 26.7 mmol/L (21.0-32.0); CREATININE 1.2 mg/dL (0.70-1.30); Calcium 9.2 mg/dL (8.5-10.1); Calculated LDL 106 mg/dL (<100); Chloride 104 mmol/L (98-107); Cholesterol 191 mg/dL (<200); Glucose 92 mg/dL (74-106); HDL Cholesterol 38 mg/dL (40-60); Potassium 4.1 mmol/L (3.5-5.1); Sodium 142 mmol/L (136-145); Total Protein 7.4 g/dL (6.4-8.2); Triglyceride 235 mg/dL (<150)
== END 2020-11-09 03:51 | disposition home or self-care (01) ==
LOC: LBO 03:50
PROVIDERS: PCP Nurse Practitioner Family; Visit Provider Nurse Practitioner Family
DX: E78.5 Hyperlipidemia, unspecified (principal); R73.9 Hyperglycemia, unspecified; I10 Essential (primary) hypertension
CPT/HCPCS: 36415; 80053; 80061; 85027; 83036

== ENCOUNTER 2021-08-24 02:44 | Outpatient (CLI) | payer OTHER, SELFPAY ==
[2021-08-24 08:19] LABS: Abs Immature Grans 0.02 10^3/uL (0.0-0.06); Absolute Basophil Count 0.05 10^3/uL (0.0-0.2); Absolute Lymphocyte Count 2.34 10^3/uL (1.2-3.4); Absolute Monocyte Count 0.68 10^3/uL (0.1-0.8); Absolute Neutrophil Count 4.54 10^3/uL (1.2-6.7); Basophils % 0.6; Eosinophils % 3.8; HCT 47.6 % (40.0-50.0); HGB 16.3 g/dL (13.5-17.5); Immature Grans % 0.3; Lymphocytes % 29.5; MCHC 34.2 % (32.0-36.0); MCV 90.7 fL (80-95); MPV 8.5 fL (8.0-11.0); Monocytes % 8.6; Neutrophils % 57.2; Nucleated RBC 0 %; Platelet Count 255 10^3/uL (130-400); RBC 5.25 10^6/uL (4.36-5.78); RDW 12.1 % (11.8-14.1); RDW-SD 39.9 fL; WBC 7.93 10^3/uL (4.4-10.8)
[2021-08-24 08:39] LABS: Hemoglobin A1C 5.4 % (<5.7)
[2021-08-24 09:18] LABS: ALT 36 U/L (16-63); AST 23 U/L (15-37); Albumin 4.3 g/dL (3.4-5.0); Alkaline Phosphatase 92 U/L (46-116); Anion Gap 7.3 mmol/L (3-11); BUN 15 mg/dL (7-18); Bilirubin, Total 0.5 mg/dL (0.2-1.0); CO2 30.7 mmol/L (21.0-32.0); CREATININE 1.1 mg/dL (0.70-1.30); Calcium 8.8 mg/dL (8.5-10.1); Calculated LDL 89 mg/dL (<100); Chloride 103 mmol/L (98-107); Cholesterol 196 mg/dL (<200); Glucose 89 mg/dL (74-106); HDL Cholesterol 39 mg/dL (40-60); Sodium 141 mmol/L (136-145); Total Protein 7.5 g/dL (6.4-8.2); Triglyceride 340 mg/dL (<150)
[2021-08-25 09:45] LABS: Hepatitis C Ab w Rflx HCV PCR Reactive (Negative)
[2021-08-26 11:33] LABS: HCV RNA Qualitative Undetected (Undetected)
== END 2021-08-24 02:45 | disposition home or self-care (01) ==
LOC: LBO 02:44
PROVIDERS: PCP Nurse Practitioner Family; Visit Provider Nurse Practitioner Family
DX: E78.5 Hyperlipidemia, unspecified (principal); I10 Essential (primary) hypertension; R73.9 Hyperglycemia, unspecified; R10.11 Right upper quadrant pain; Z86.19 Personal history of other infectious and parasitic diseases
CPT/HCPCS: 36415; 80053; 80061; 85027; 86803; 87522; 83036; 85025

== ENCOUNTER 2021-11-10 21:56 | Emergency (ER) | payer OTHER, SELFPAY ==
[2021-11-10 22:00] VITALS: BP 148/90; PULSE 97; RESP 18; TEMP 36.6; O2SAT 98
--- NOTE | 2021-11-10 22:27 | ED.GENADUL_ITS ---
Discharge Plan Disposition Patient Disposition: HOME Condition: Stable Discharge Details Clinical Impression: Dental infection Primary Care Provider: Sharon Sanchez ED Provider: Richie Vyas Home Meds and New Rx's Prescriptions: New penicillin V potassium 500 mg tablet 500 mg PO QID Qty: 40 0RF Continued Stelara 90 MG/ML syringe 90 mg SQ DIRECTED Label Comments: takes every 3 months - gabapentin 300 mg capsule 300 mg PO DIRECTED PRN Discharge Instructions Instructions: Penicillin V (By mouth), Dental Abscess (ED) Additional Instructions: You were given initial dose of antibiotic tonight. You are given another dose for tomorrow morning. You should then continue as prescribed and be sure to complete the full course. Please follow-up with your dentist. Return to the ER for any worsening or new concerning symptoms. Medical Decision Making 46-year-old male here with dental infection. No sign of discrete abscess. No systemic symptoms. Plan to treat with penicillin and have him follow-up with dentist as planned. HPI General Mode of arrival: ambulatory . Date/Time Provider Initiated Documentation: 11/10/21 22:25 . Limitations to Documentation: no limitations . Information obtained by: patient . HPI Narrative: 46-year-old male here with chief complaint of dental pain. Patient notes left lower molar dental pain that started about a month and a half ago and has recently worsened. Pain feels like an ache. No radiation. Patient has been seen by his dentist twice. There apparently is planned for root canal he has been referred to oral surgeon. He was apparently instructed to come to the emergency department for antibiotic. Patient denies associated fever. No difficulty swallowing. Related Data Home Medications Medication Instructions Recorded Confirmed ustekinumab 90 mg/mL subcutaneous 90 mg SQ DIRECTED 01/05/14 11/10/21 syringe (Stelara) gabapentin 300 mg capsule 300 mg PO DIRECTED PRN 09/12/20 11/10/21 penicillin V potassium 500 mg 500 mg PO QID #40 tabs 11/10/21 tablet Previous Rx's Medication Instructions Recorded penicillin V potassium 500 mg 500 mg PO QID #40 tabs 11/10/21 tablet Allergies Allergy/AdvReac Type Severity Reaction Status Date / Time No Known Allergies Allergy Unverified 11/10/21 22:04 General Stated Complaint: DentalOral GARLAND: 4 Review of Systems Constitutional Constitutional: Denies fever(s) ENT Ears, Nose, Mouth, and Throat: Reports as per HPI PFSH All Active Problems Chest pain (Acute) Dental infection (Acute) Dyspnea on exertion (Acute) Mass of oropharynx (Acute) Medical History Chest pain History of nephrolithotomy with removal of calculi [place] (myocardial infarction[place] (myocardial infarction) Psoriasis Surgical History History of lumbar surgery Social History Smoking/Tobacco Use Status: Current every day Tobacco Type: cigarettes Tobacco: How many years used: 25 Smoking risk assessment performed?: Yes Alcohol Intake: current Alcohol Intake frequency: holidays/special occasions only Drug use: Never Substance use type: does not use Do you feel safe at home: Yes Do you feel safe in your relationship?: Yes Exam HENMT General nose exam: external nose normal Face and sinus: normal facial exam Mouth: oral mucosae normal, moist mucous membranes and no trismus Teeth and gingiva: gingiva normal Throat: posterior oropharynx normal Neck Lymphatic: no lymphadenopathy noted Course Vital Signs Vital signs: Vital Signs Temperature 36.6 C 11/10/21 22:00 Pulse 97 H 11/10/21 22:00 Respiratory Rate 18 11/10/21 22:00 Blood Pressure 148/90 H 11/10/21 22:00 Pulse Oximetry 98 11/10/21 22:00 Temperature 36.6 C 11/10/21 22:00 Temperature Source Temporal Artery Scan 11/10/21 22:00 Pulse 97 H 11/10/21 22:00 Respiratory Rate 18 11/10/21 22:00 Respiratory Effort 11/10/21 22:03 Blood Pressure 148/90 H 11/10/21 22:00 Blood Pressure Position Sitting 11/10/21 22:00 Pulse Oximetry 98 11/10/21 22:00 Pain Level 5 11/10/21 22:00
[2021-11-10] MEDS: Penicillin V POTASSIUM 500 MG TAB PO ×2 (22:40)
== END 2021-11-10 22:41 | disposition home or self-care (01) ==
PROVIDERS: Emergency Provider Student in an Organized Health Care Education/Training Program; PCP Nurse Practitioner Family
DX: K04.7 Periapical abscess without sinus (principal)
CPT/HCPCS: 99283

== ENCOUNTER 2022-07-04 01:37 | Outpatient (CLI) | payer OTHER, SELFPAY ==
--- NOTE | 2022-07-04 | DI.MRI_ITS ---
Exam(s) MR UPPER JOINT RT WO EXAM: MR UPPER JOINT RT WO CLINICAL HISTORY: RT SHOULDER PAIN, M25.511,ROTATOR CUFF INJURY. TECHNIQUE: Multiplanar multisequence MRI was performed. COMPARISON: No priors for comparison. FINDINGS: BONES: There is no fracture or contusion pattern. JOINTS: There are moderate degenerative changes seen at the acromioclavicular joint. The glenohumera l joint is normal. TENDONS: Supraspinatus: There is thickening and intermediate signal seen within the supraspinatus tendon consi stent with tendinosis. There is mild hyperintense signal seen along the articular surface suspicious for an intrasubstance tear. Infraspinatus: There is thickening of the infraspinatus tendon consistent with tendinosis. There is also mild hyperintense signal seen near its insertion site suspicious for partial intrasubstance tear . Subscapularis: There is tendinosis of the subscapularis tendon with hyperintense signal suggest of a intrasubstance tear. Teres Minor: Unremarkable. Biceps and [place]: Unremarkable. MUSCLES: Unremarkable. GLENOID LABRUM: There is hyperintense signal seen in the superior labrum consistent with a tear. SOFT TISSUES: Unremarkable. LIGAMENTS: Unremarkable. OTHER: Subacromial and subdeltoid bursae are unremarkable. There is a small amount of fluid in the [place] bcoracoid bursa. IMPRESSION: 1. Tendinosis involving the supraspinatus, infraspinatus and subscapularis tendons. 2. There are foci of hyperintense signal seen in the supraspinatus, infraspinatus and subscapularis t endons consistent with intrasubstance tears. 3. Hyperintense signal seen in the superior labrum, extending posterior to the biceps attachment, janet picious for tear. 4. Degenerative changes seen at the acromioclavicular joint. DATA REPOSITORY:
== END 2022-07-04 01:57 ==
LOC: DI 01:38
PROVIDERS: Visit Provider Neuromusculoskeletal Medicine & OMM
DX: M25.511 Pain in right shoulder (principal); M75.81 Other shoulder lesions, right shoulder; M75.101 Unspecified rotator cuff tear or rupture of right shoulder, not specified as traumatic; M19.011 Primary osteoarthritis, right shoulder
CPT/HCPCS: 73221

== ENCOUNTER 2022-07-07 00:25 | Outpatient (CLI) | payer OTHER, SELFPAY ==
--- NOTE | 2022-07-07 07:45 | DI.RAD_ITS ---
Exam(s) XR CERVICAL SPINE COMP 4-5V EXAM: XR CERVICAL SPINE COMP 4-5V CLINICAL HISTORY: NUMBNESS AND TINGLING IN FINGERTIPS, ANESTHESIA OF SKIN, R20.0. TECHNIQUE: 2D digital imaging was performed. COMPARISON: No exams were available for comparison FINDINGS: Five views: There is no evidence of fracture, listhesis, nor offset of the spinal laminar line. Disc spaces exhi bit normal height although there is multilevel anterior osseous lipping. Mild facet joint degenerati ve changes. On the oblique views there are no prominent Luschka joint osteophytes evident. There ar e no cervical ribs. IMPRESSION: Mild multilevel degenerative changes. Disc spaces exhibit normal height at each level in the cervica l spine. DATA REPOSITORY: RADIATION DOSE DELIVERED:
== END 2022-07-07 00:45 ==
LOC: DI 00:25
PROVIDERS: Visit Provider Nurse Practitioner Family
DX: M47.812 Spondylosis without myelopathy or radiculopathy, cervical region (principal); R20.0 Anesthesia of skin
CPT/HCPCS: 72050

== ENCOUNTER 2022-07-20 21:54 | Emergency (ER) | payer OTHER, SELFPAY ==
[2022-07-20 22:10] VITALS: BP 111/77; PULSE 94; RESP 16; TEMP 36.5; O2SAT 96
--- NOTE | 2022-07-20 22:45 | DI.RAD_ITS ---
Exam(s) XR TIB/FIB LT EXAM: XR TIB/FIB LT CLINICAL HISTORY: bump on L medial leg, r/o bony mass, foreign body. TECHNIQUE: 2D digital imaging was performed. Two views. COMPARISON: No exams were available for comparison FINDINGS: BONES: No acute fracture is present. No bony destructive lesion is seen. Visualized portion of knee a nd ankle joints are unremarkable. SOFT TISSUE: Normal. IMPRESSION: Unremarkable radiographs of the left tibia and fibula. DATA REPOSITORY: RADIATION DOSE DELIVERED:
--- NOTE | 2022-07-20 22:45 | ED.GENADUL_ITS ---
Discharge Plan Disposition Patient Disposition: Home Condition: Stable Discharge Details Clinical Impression: Localized swelling, mass and lump, left lower limb Primary Care Provider: Unknown,Unknown ED Provider: Nighat Ryan Home Meds and New Rx's Prescriptions: Continued Stelara 90 MG/ML syringe 90 mg SQ DIRECTED Patient Comments: takes every 3 months - Discharge Instructions Instructions: Superficial Thrombophlebitis (ED), Cyst (ED), Lipoma (ED) Additional Instructions: Your final report of your x-ray is still pending but there is no obvious acute findings per my evaluation. You will be notified if the radiologist notes any additional findings. An order for an outpatient leg ultrasound has been placed to rule out a possible small blood clot, cyst or fatty tissue in your left leg. Call the radiology department tomorrow on the number listed on your ultrasound order form to schedule an outpatient ultrasound of your left leg. Rest and elevate the affected area as much as possible. Alternate tylenol and motrin as needed and directed for pain. Follow-up with your primary care doctor in 1 week. Return to the emergency department with any worsening or new concerning symptoms. Discharge Data Discharge Date/Time-TO BE ENTERED AT DEPARTURE: 07/21/22 00:26 Discharge Physician: Nighat Ryan Medical Decision Making 47-year-old male with a history of obesity, MA, kidney stones and psoriasis presents for left leg lump with intermittent surrounding pain for the past few months. Sent in by his for evaluation. Denies any recent acute change. Vitals within normal limits. When supine, there is no tenderness or obvious abnormality on exam. When patient has legs hanging off stretcher and he dorsiflexes his foot there is a 2 x 2 centimeter slightly bluish in color soft minimally tender mass noted in the left proximal medial leg. There is no evidence of cellulitis or crepitus. Differential diagnosis includes superficial thrombophlebitis, cyst or lipoma. History and presentation does not appear c onsistent with DVT. We will obtain a left tib-fib x-ray to rule out bony mass. We will obtain a bedside ultrasound to rule any other obvious DVT or clot in the area. Xray negative for acute findings. Bedside ultrasound noted normal compressibility and no evidence of clot in the area of concern in the left medial leg. Limited Doppler ultrasound of left popliteal and femoral vein with normal compressibility and no obvious evidence of blood clot. Formal ultrasound ordered. As suspicion for DVT low, will hold on anticoagulation at this time. Advised to follow up with the primary care doctor for re-evaluation. Usual and customary return precautions given prior to discharge. Medical Records Medical records reviewed: Yes I reviewed the patient's medical records. Imaging Data Radiologic Study: Radiologist's impression: XR Left Tibia and Fibula Exam date and time: 07/21/2022 12:15 AM Age: 47 years old Clinical indication: Other: Bump on L medial leg, R/O bony mass/foreign body TECHNIQUE: Imaging protocol: Radiologic exam of the Left tibia and fibula. Views: 2 views. COMPARISON: CT LEFT LOWER EXTREMITY W CONTRAS 02/11/2016 9:52 PM FINDINGS: Bones/joints: Normal. Soft tissues: Normal. IMPRESSION: No bony abnormality evident. No radiopaque foreign body. HPI General Mode of arrival: ambulatory . Date/Time Provider Initiated Documentation: 07/20/22 22:21 . Limitations to Documentation: no limitations . Information obtained by: patient . HPI Narrative: Patient is a 47-year-old male with a history of obesity, MA, psoriasis, kidney stones who presents with a lump to his left lower leg for the past few months, sent in by his this evening as she noticed him has become more concerned about it. Patient states he first noticed it a few months ago. Patient states it changes with position and usually goes away when his legs are elevated or he supine. Patient states he does not notice any lump or pain throughout the day because he is busy and walking around wearing pants and boots. Patient states when he gets home from work he notices some discomfort in his left lower leg and notices a lump when standing or legs are hanging off a chair. He states it has not increased in size as far as he knows. 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 He denies any fever, chest pain, shortness of breath or dizziness. Related Data Home Medications Medication Instructions Recorded Confirmed ustekinumab 90 mg/mL subcutaneous 90 mg SQ DIRECTED 01/05/14 07/20/22 syringe (Stelara) Allergies Allergy/AdvReac Type Severity Reaction Status Date / Time No Known Allergies Allergy Unverified 07/20/22 22:13 General Stated Complaint: Orthopedic GARLAND: 4 Review of Systems All systems reviewed & are unremarkable except as noted in HPI and below Constitutional Constitutional: Reports as per HPI, Denies chills and Denies fever(s) Eyes Eyes: Denies blurry vision ENT Ears, Nose, Mouth, and Throat: Denies dizziness, Denies sore throat and Denies throat swelling Cardiovascular Cardiovascular: Denies chest pain and Denies dyspnea Respiratory Respiratory: Denies cough and Denies dyspnea Gastrointestinal Gastrointestinal: Denies abdominal pain, Denies diarrhea and Denies vomiting Genitourinary Genitourinary: Denies hematuria and Denies dysuria Musculoskeletal Musculoskeletal: Denies back pain and Denies numbness Comments: lump, intermittent pain Left lower leg Integumentary/Breasts Skin/Breast: Denies lesions and Denies rash Neurologic Neurologic: Denies dizziness, Denies localized weakness and Denies numbness Allergic/Immunologic Allergic/Immunologic: Denies throat swelling PFSH All Active Problems (Updated 07/21/22 @ 00:19 by Nighat Ryan DO) Chest pain (Acute) Localized swelling, mass and lump, left lower limb (Acute) Dyspnea on exertion (Acute) Mass of oropharynx (Acute) Medical History Chest pain History of nephrolithotomy with removal of calculi [place] (myocardial infarction[place] (myocardial infarction) Psoriasis Surgical History History of lumbar surgery Social History Smoking/Tobacco Use Status: Current every day Tobacco Type: cigarettes Tobacco: How many years used: 25 Smoking risk assessment performed?: Yes Alcohol Intake: current Alcohol Intake frequency: holidays/special occasions only Drug use: Never Substance use type: does not use Do you feel safe at home: Yes Do you feel safe in your relationship?: Yes Exam Const General: cooperative and no acute distress Orientation: alert, awake and oriented x3 HENMT Head: normal to inspection Mouth: oral mucosae normal Eyes General: appearance normal, both eyes and all related structures Neck Neck: normal visual inspection Resp Effort & Inspection: normal respiratory effort and able to speak in complete sentences Cardio Rate: regular rate Skin General skin exam: no rashes or lesions noted Neuro General: patient alert, patient awake and patient oriented x3 Motor: muscle tone normal throughout Extrem General: full ROM Ankle/foot/toe images: 1. 2 x 2 centimeter circular soft minimally tender mass with minimal bluish discoloration noted in the left medial proximal leg when legs hanging off stretcher. This appears to go away when laying supine and legs elevated on stretcher. There is no erythema, edema, induration or fluctuance. Left DP pulse intact. There is no surrounding crepitus. Psych Appearance: grossly normal Affect: normal affect Course Vital Signs Vital signs: Vital Signs Temperature 97.7 F 07/20/22 22:10 Pulse 94 H 07/20/22 22:10 Respiratory Rate 16 07/20/22 22:10 Blood Pressure 111/77 07/20/22 22:10 Pulse Oximetry 96 07/20/22 22:10 Temperature 97.7 F 07/20/22 22:10 Temperature Source Temporal Artery Scan 07/20/22 22:10 Pulse 94 H 07/20/22 22:10 Respiratory Rate 16 07/20/22 22:10 Respiratory Effort Normal 07/20/22 22:10 Blood Pressure 111/77 07/20/22 22:10 Blood Pressure Position Sitting 07/20/22 22:10 Pulse Oximetry 96 07/20/22 22:10 Oxygen Delivery Method Room Air 07/20/22 22:10 Oxygen Flow Rate 0 07/20/22 22:10 Pain Level 3 07/20/22 22:10
--- NOTE | 2022-07-20 23:09 | NUR.NOTE ---
Addendum entered by Yelena Joseph 07/21/22 14:14: DI called today asking about an order for US. If found the order and gave it to DI again. Original Note: DI requisition faxed to DI for ultrasound of left leg, copy of requisition given to patient and instructed to call DI in am.Nursing Note:
--- NOTE | 2022-07-21 00:49 | DI.VRAD_ITS ---
PROCEDURE INFORMATION: Exam: XR Left Tibia and Fibula Exam date and time: 07/21/2022 12:15 AM Age: 47 years old Clinical indication: Other: Bump on L medial leg, R/O bony mass/foreign body TECHNIQUE: Imaging protocol: Radiologic exam of the Left tibia and fibula. Views: 2 views. COMPARISON: CT LEFT LOWER EXTREMITY W CONTRAS 02/11/2016 9:52 PM FINDINGS: Bones/joints: Normal. Soft tissues: Normal. IMPRESSION: No bony abnormality evident. No radiopaque foreign body. Dictated and Authenticated by: Elsie Perez MD. Ordering:ANUSHA Disla MD
== END 2022-07-21 00:26 | disposition home or self-care (01) ==
PROVIDERS: Emergency Provider Physician Assistant
DX: R22.42 Localized swelling, mass and lump, left lower limb (principal)
CPT/HCPCS: 99284; 73590; 99283

== ENCOUNTER 2022-07-24 15:29 | Emergency (ER) | payer OTHER, SELFPAY ==
[2022-07-24 15:32] VITALS: BP 120/81; PULSE 92; RESP 16; TEMP 36.9; O2SAT 96
--- NOTE | 2022-07-24 16:06 | W.ED.GENAD ---
Discharge Plan Disposition Patient Disposition: Home Condition: Improving Discharge Details Clinical Impression: Strain of left calf muscle Primary Care Provider: Unknown,Unknown ED Provider: John Abbott Home Meds and New Rx's Prescriptions: Continued Stelara 90 MG/ML syringe 90 mg SQ DIRECTED Patient Comments: takes every 3 months - Discharge Instructions Instructions: Muscle Strain (ED) Additional Instructions: Your ultrasound was negative. You may have a muscle injury. Continue to ice and elevate to reduce discomfort. May wear compression stockings to aid as well. Return for any acute concerns. Medical Decision Making 47-year-old male returns following recheck of the left calf anterior bulge. He underwent ultrasound which was unremarkable. He works in [employer]. He likely has had a muscular strain. May have injured slightly his fascia. He is improved and exam is reassuring. Given the lack of ultrasound results will have him return to work as tolerated. 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 He will return for any concerns. HPI General Mode of arrival: ambulatory. Date/Time Provider Initiated Documentation: 07/24/22 15:34. Limitations to Documentation: no limitations. Information obtained by: patient. History of Present Illness 47 year old M presents to the emergency department with the chief complaint of Recheck left calf, described as mild, and is localized to the left and lower extremity. Patient started experiencing this hour(s) and it has been now resolved. No relieving factors improve symptom(s), No exacerbating factors reported . Patient did receive the following treatments prior to arrival, none Related Data Home Medications Medication Instructions Recorded Confirmed ustekinumab 90 mg/mL subcutaneous 90 mg SQ DIRECTED 01/05/14 07/24/22 syringe (Stelara) Allergies Allergy/AdvReac Type Severity Reaction Status Date / Time No Known Allergies Allergy Unverified 07/24/22 15:37 General Stated Complaint: Recheck GARLAND: 5 Review of Systems Narrative: Feels improved. No chest pain or shortness of breath. Works with [employer]. Hand has generalized muscular soreness at the end of the day. 6 systems reviewed. PFSH All Active Problems Chest pain (Acute) Localized swelling, mass and lump, left lower limb (Acute) Strain of left calf muscle (Acute) Dyspnea on exertion (Acute) Mass of oropharynx (Acute) Medical History Chest pain History of nephrolithotomy with removal of calculi [place]my[place] infarction[place] (myocardial infarction) Psoriasis Surgical History History of lumbar surgery Social History Smoking/Tobacco Use Status: Current every day Tobacco Type: cigarettes Tobacco: How many years used: 25 Smoking risk assessment performed?: Yes Alcohol Intake: current Alcohol Intake frequency: holidays/special occasions only Drug use: Never Substance use type: does not use Do you feel safe at home: Yes Do you feel safe in your relationship?: Yes Exam Narrative Exam Narrative: GEN: awake, alert, oriented 3. Pleasant, well groomed, interactive. HEAD: Normocephalic, atraumatic ENT: Mucous membranes moist, oropharynx unremarkable, External ear exam unremarkable EYES: PERRL, EOMI Chest: No respiratory distress Extremity: Left medial anterior calf tenderness, no soft tissue mass. No change with plantarflexion with then the leg in extension at the knee or in flexion. No edema Neuro: Grossly normal neurologic exam, conversant, interactive. Psych: Speech fluent, thoughts congruent, affect normal Course Vital Signs Vital signs: Vital Signs Temperature 36.9 C 07/24/22 15:32 Pulse 92 H 07/24/22 15:32 Respiratory Rate 16 07/24/22 15:32 Blood Pressure 120/81 07/24/22 15:32 Pulse Oximetry 96 07/24/22 15:32 Temperature 36.9 C 07/24/22 15:32 Temperature Source Skin 07/24/22 15:32 Pulse 92 H 07/24/22 15:32 Respiratory Rate 16 07/24/22 15:32 Respiratory Effort Normal 07/24/22 15:40 Blood Pressure 120/81 07/24/22 15:32 Blood Pressure Position Sitting 07/24/22 15:32 Pulse Oximetry 96 07/24/22 15:32 Oxygen Delivery Method Room Air 07/24/22 15:32 Oxygen Flow Rate 0 07/24/22 15:32 Pain Level 0 07/24/22 15:32
[2022-07-24 16:12] VITALS: BP 118/85; PULSE 91; RESP 18; TEMP 36.3; O2SAT 94
== END 2022-07-24 16:14 | disposition home or self-care (01) ==
PROVIDERS: Emergency Provider Emergency Medicine
DX: S86.812A Strain of other muscle(s) and tendon(s) at lower leg level, left leg, initial encounter (principal); X58.XXXA Exposure to other specified factors, initial encounter

== ENCOUNTER 2022-12-07 18:48 | Emergency (ER) | payer OTHER, SELFPAY ==
[2022-12-07 18:52] VITALS: BP 130/75; PULSE 89; RESP 20; TEMP 36.8; O2SAT 99
--- NOTE | 2022-12-07 19:15 | DI.RAD_ITS ---
Exam(s) XR LUMBAR SPINE COMPLETE EXAM: XR LUMBAR SPINE COMPLETE CLINICAL HISTORY: Lumbar pain. TECHNIQUE: 2D digital imaging was performed. Five views. FINDINGS: BONES: No fracture or destructive lesion. Vertebral body heights are maintained. L4-5 and L5-S1 face t hypertrophy identified. DISKS: Moderate narrowing of the L 5 S1 disc space. ALIGNMENT: Lumbar spinal alignment is within normal limits. SOFT TISSUE: Normal. IMPRESSION: Degenerative changes lower lumbar spine. DATA REPOSITORY: RADIATION DOSE DELIVERED:
--- NOTE | 2022-12-07 19:18 | W.ED.GENAD ---
Discharge Plan Disposition Patient Disposition: Home Condition: Stable Discharge Details Clinical Impression: Lumbago Primary Care Provider: Palomo Lofton ED Provider: Daksha Mckeon Home Meds and New Rx's Prescriptions: No Action Stelara 90 MG/ML syringe 90 mg SQ DIRECTED Patient Comments: takes every 3 months - Discharge Instructions Instructions: Low Back Strain (ED), Lower Back Exercises (ED) Additional Instructions: Please take Tylenol or Ibuprofen with food every 4-6 hours as needed for pain and swelling. Alternate ice and heat. You may also apply lidocaine patches or topical anesthetic which you can get [id number]. X-ray shows degenerative changes. Strep is negative. Follow up with primary care provider in 3-5 days. Return to ED sooner if any worsening or concerns. Increase oral fluids. Referrals: Palomo Lofton [Primary Care Provider] - 1 week Discharge Data Discharge Date/Time-TO BE ENTERED AT DEPARTURE: 12/07/22 20:36 Medical Decision Making 47-year-old male presents to the ER with a chief complaint of lower back pain which began this morning. He also notes feeling a lump to his right mandible and some neck pain. He reports that he was on a tractor all day yesterday got a sunburn and pain is gotten worse. He has not taken anything prior to arrival. He denies any loss of bowel or bladder control. X-ray shows degenerative changes. Patient discharged with home care follow-up care. Instructed to get lidocaine patches [id number] and take Tylenol ibuprofen alternate ice and heat. Patient declined muscle relaxers at this time. This text was generated using [employer] system, please disregard any oddities of phrase or misspellings. Imaging Data Radiologic Study: Imaging: X-Ray Radiologist's impression: Imaging protocol: Radiologic exam of the lumbosacral spine. Views: 4 or 5 views. COMPARISON: MR L-SPINE^ROUTINE W WO 11/15/2018 2:08 PM FINDINGS: Bones/joints: Loss of lumbar lordosis is presumed degenerative with facet hypertrophic changes at L4-L5 and L5-S1. Foraminal stenosis at L4-L5 and L5-S1 No acute fracture. Soft tissues: Unremarkable. IMPRESSION: No acute findings. Degenerative changes in the lower lumbar spine as noted Thank you for allowing us to participate in the care of your patient. Dictated and Authenticated by: Costa Kumar MD HPI General Mode of arrival: ambulatory. Date/Time Provider Initiated Documentation: 12/07/22 19:09. Limitations to Documentation: no limitations. Information obtained by: patient, RN notes reviewed and old records reviewed. HPI Narrative: 47-year-old male presents to the ER with a chief complaint of lower back pain which began this morning. He also notes feeling a lump to his right mandible and some neck pain. He reports that he was on a tractor all day yesterday got a sunburn and pain is gotten worse. He has not taken anything prior to arrival. He denies any loss of bowel or bladder control. No saddle anesthesia. He reports he does have history of previous back surgery does have some numbness in his left leg which is at baseline. He is moving all 4 extremities without difficulty. Past medical history includes NC and psoriasis. Related Data Home Medications Medication Instructions Recorded Confirmed ustekinumab 90 mg/mL subcutaneous 90 mg SQ DIRECTED 01/05/14 12/07/22 syringe (Stelara) Allergies Allergy/AdvReac Type Severity Reaction Status Date / Time No Known Allergies Allergy Unverified 12/07/22 18:57 General Stated Complaint: Nk/Back Pain GARLAND: 4 Review of Systems All systems reviewed & are unremarkable except as noted in HPI and below Constitutional Constitutional: Denies weakness ENT Ears, Nose, Mouth, and Throat: Reports neck pain Musculoskeletal Musculoskeletal: Reports as per HPI, Reports back pain, Reports neck pain and Denies tingling Neurologic Neurologic: Reports as per HPI, Denies localized weakness, Denies convulsions, Denies tingling and Denies weakness PFSH All Active Problems (Updated 12/07/22 @ 20:19 by Daksha Mckeon NP) Chest pain (Acute) Lumbago (Acute) Dyspnea on exertion (Acute) Mass of oropharynx (Acute) Medical History Chest pain History of nephrolithotomy with removal of calculi Old NC (myocardial infarction) Old NC (myocardial infarction) Psoriasis Surgical History History of lumbar surgery Social History Smoking/Tobacco Use Status: Current every day Tobacco Type: cigarettes Tobacco: How many years used: 25 Smoking risk assessment performed?: Yes Alcohol Intake: current Alcohol Intake frequency: holidays/special occasions only Drug use: Never Substance use type: does not use Do you feel safe at home: Yes Do you feel safe in your relationship?: Yes Exam Narrative Exam Narrative: Constitutional: Alert and oriented x3. Appears stated age. Normal body habitus. Head: Normocephalic, no trauma. Eyes: Pupils PERRL, Red reflex noted, EOM's intact. Eyelids symmetrical without lesions, discharge, or swelling. ENT: Bilateral TM's WNL, External ear normal to inspection, no mastoid TTP, swelling, or erythema, Nasal turbinates WNL, no nasal discharge. Normal dentition, Posterior pharynx slightly erythemic, no exudate. Positive cervical lymphadenopathy worse on the right. Uvula is midline. Chest: RRR, Normal S1, S2, distal pulses intact. Resp: Lungs clear to auscultation bilaterally, no wheezes, rales, or rhonchi. Abdomen: Soft, non-distended, Normoactive bowel sounds all 4 quads. Musculoskeletal: Normal gait, 5/5 strength to all four extremities. Does have some swelling over his lumbar spine. Skin: No suspicious rashes or lesions. Capillary refill less than 2 sec. Neurologic: Cranial nerves II-XII intact. Alert and oriented x 3. Motor: No deficits noted. Sensory: Intact bilaterally all 4 extremities. Reflexes: DTR's intact bilaterally.. Hematologic/Lymphatic: No ecchymosis, no lymphadenopathy. Course Vital Signs Vital signs: Vital Signs Temperature 36.8 C 12/07/22 18:52 Pulse 89 12/07/22 18:52 Respiratory Rate 20 12/07/22 18:52 Blood Pressure 130/75 12/07/22 18:52 Pulse Oximetry 99 12/07/22 18:52 Temperature 36.8 C 12/07/22 18:52 Temperature Source Oral 12/07/22 18:52 Pulse 89 12/07/22 18:52 Respiratory Rate 20 12/07/22 18:52 Respiratory Effort Normal 12/07/22 19:01 Blood Pressure 130/75 12/07/22 18:52 Blood Pressure Position Sitting 12/07/22 18:52 Pulse Oximetry 99 12/07/22 18:52 Oxygen Delivery Method Room Air 12/07/22 18:52 Oxygen Flow Rate 0 12/07/22 18:52 Pain Level 4 12/07/22 18:52
[2022-12-07] MEDS: Ibuprofen 800 MG TAB PO (19:26)
[2022-12-07] MEDS: Lidocaine 5% Patch 1 PATCH TP (19:26)
--- NOTE | 2022-12-07 20:05 | DI.VRAD_ITS ---
PROCEDURE INFORMATION: Exam: XR Lumbosacral Spine Exam date and time: 12/07/2022 7:52 PM Age: 47 years old Clinical indication: Low back pain TECHNIQUE: Imaging protocol: Radiologic exam of the lumbosacral spine. Views: 4 or 5 views. COMPARISON: MR L-SPINE^ROUTINE W WO 11/15/2018 2:08 PM FINDINGS: Bones/joints: Loss of lumbar lordosis is presumed degenerative with facet hypertrophic changes at L4-L5 and L5-S1. Foraminal stenosis at L4-L5 and L5-S1 No acute fracture. Soft tissues: Unremarkable. IMPRESSION: No acute findings. Degenerative changes in the lower lumbar spine as noted Dictated and Authenticated by: Costa Kumar MD. Ordering:ISRAEL Crooks MD
[2022-12-07 20:34] VITALS: BP 107/64; PULSE 64; RESP 18; TEMP 36.8; O2SAT 99
== END 2022-12-07 20:36 | disposition home or self-care (01) ==
PROVIDERS: Emergency Provider Registered Nurse Emergency; PCP Neuromusculoskeletal Medicine & OMM
DX: M54.50 Low back pain, unspecified (principal)
CPT/HCPCS: 87880; 99283; 72110

== ENCOUNTER 2022-12-10 14:42 | Emergency (ER) | payer OTHER, SELFPAY ==
[2022-12-10] VITALS (17 sets, daily range): BP systolic 104–139; BP diastolic 64–76; PULSE 74–102; RESP 12–33; TEMP 37.3; O2SAT 94–98
--- NOTE | 2022-12-10 15:51 | ED.GENADUL_ITS ---
Discharge Plan Disposition Patient Disposition: Home Discharge Details Clinical Impression: Acute parotitis, Cellulitis Primary Care Provider: Palomo Lofton ED Provider: Helen Mccormick Home Meds and New Rx's Prescriptions: New cephalexin 500 mg capsule 500 mg PO QID Qty: 40 0RF Continued Stelara 90 MG/ML syringe 90 mg SQ DIRECTED Patient Comments: takes every 3 months - Discharge Instructions Instructions: Cellulitis (ED) Additional Instructions: You may have early cellulitis and/or parotitis. We will put you on Keflex 500 mg 4 times per day. Apply heat to the affected sore area. Recheck with your dentist tomorrow so they can look more closely at your teeth as etiology. T ylenol 650 mg every 4 hours and or ibuprofen 600 mg every 6 hours as needed for pain and fever. Return to the ED if you are no better in 24 to 48 hours. Return sooner for shaking chills, spreading facial redness, worsening belly pain, any other concerns. Medical Decision Making 1714 Patient is alert and much more comfortable appearing. He is eating nuts in spite of the fact that he was told not to eat anything until his CT abdomen/pelvis was back. Says he is sweating and I suspect that he was breaking his fever. Tylenol has apparently helped. He was updated on the test results that are back at present. 1899 Patient continued to be updated on all of his test results. There is nonspecific edema on CT on the right side of his face and neck, including near parotid. Patient was advised to see his dentist tomorrow to get his teeth checked. We started him on Keflex tonight. We did try Zofran but after a very small amount he started to vomit. He did not want to wait for additional IV antibiotics. He will return for spreading redness, increased swelling, any other concerns. Of note, the patient has had his MMR vaccines as scheduled. I do not think this is a mump's manifestation. Will return to the ED if no better in 24 to 48 hours and also see his PCP this week in follow-up. Medical Records Medical records reviewed: Yes I reviewed the patient's medical records. Imaging Data Radiologic Study: Imaging: CT Scan (CT chest abdomen and pelvis revealed no PE, aortic aneurysm, or dissection. There was hepatosplenomegaly. His abdominal CT was otherwise normal with the exception of a small renal cyst on the left. CT maxillofacial revealed edema in the superficial right parotid gland with mild enhancement which ) Radiologist's impression: (cont) may represent parotitis for cellulitis. There is rounding mild edema in the submandibular space, drug regulatory affairs specialist space, and overlying subcu soft tissues. Mild edema and enhancement along the cartilaginous inferior wall of the external auditory canal helix may be reactive. There is mildly enlarged lymph nodes in the right suprahyoid neck most prominent in the right level 1B which are co nsidered reactive. No abscess or drainable fluid collection was seen. Lab Data Lab results reviewed: Yes I reviewed the patient's lab results. Lab results narrative: Patient's lactate is 1.5. AG is 13.5. VBG is 7.4 ; Patient's white blood cell count is 14.2 K with 82 polys, 9 lymphs, and no bands. Trop #1 is normal. ECG Data Attestation: I personally reviewed and interpreted this ECG (s) as follows: ( NSR 85, RR', LAHB, no change vs 09/12/20) HPI General Date/Time Provider Initiated Documentation: 12/10/22 15:49 . HPI Narrative: This 47-year-old male patient who is on Stelara for psoriasis presents with a chief complaint of right jaw pain. The patient reports that this began last week. He can feel a lump little of his jawbone and it is tender to touch. He thinks this is probably coming from his teeth although cannot identify a specific area related to this. There is no swelling. He says that 3 days ago he slept all day and has had hot and cold chills but no rigors. There has been no documented fever. He says that his nose is congested but not running. He has no ear pain. He says he has left-sided pleuritic pain when he takes a deep breath but admits that it is off and on. There is no difficulty breathing. She denies chest pain but was tender on exam. There is no nausea or vomiting. He has chronic diarrhea that is unchanged. There is no dysuria. He denied calf pain but had some tenderness on the right side with palpation. He says he feels weak, dizzy, and fatigued. He is a little wobbly when he tries to take a shower feels like his brain is not connecting to his body. Related Data Home Medications Medication Instructions Recorded Confirmed ustekinumab 90 mg/mL subcutaneous 90 mg SQ DIRECTED 01/05/14 12/10/22 syringe (Stelara) cephalexin 500 mg capsule 500 mg PO QID #40 caps 12/10/22 Previous Rx's Medication Instructions Recorded cephalexin 500 mg capsule 500 mg PO QID #40 caps 12/10/22 Allergies Allergy/AdvReac Type Severity Reaction Status Date / Time No Known Allergies Allergy Unverified 12/10/22 14:49 General Stated Complaint: DentalOral GARLAND: 3 Review of Systems Constitutional Constitutional: Denies chills, Denies fever(s), Denies headache(s) and Reports weakness Eyes Eyes: Denies diplopia and Reports other (no redness) ENT Ears, Nose, Mouth, and Throat: Denies vertigo, Reports dizziness, Denies otalgia, Denies headache(s), Reports nasal congestion, Denies nasal discharge, Denies neck pain, Denies sore throat and Reports other (Has right mid jaw pain with a lump there) Cardiovascular Cardiovascular: Reports chest pain (Has left upper pleuritic pain), Denies palpitations and Denies dyspnea Respiratory Respiratory: Denies cough and Denies dyspnea Gastrointestinal Gastrointestinal: Denies abdominal pain, Denies diarrhea, Denies nausea and Denies vomiting Genitourinary Genitourinary: Denies difficulty urinating and Denies dysuria Musculoskeletal Musculoskeletal: Denies myalgias, Denies muscle weakness, Denies neck pain, Denies numbness and Reports other (no edema, has a vague lower right calf pain) Integumentary/Breasts Skin/Breast: Denies change in pigmentation and Denies rash Neurologic Neurologic: Denies vertigo, Reports dizziness, Denies headache(s), Denies numbness and Reports weakness Endocrine Endocrine: Denies palpitations PFSH All Active Problems (Updated 12/10/22 @ 19:20 by Helen Mccormick MD) Chest pain (Acute) Lumbago (Acute) Acute parotitis (Acute) Cellulitis (Acute) Dyspnea on exertion (Acute) Mass of oropharynx (Acute) Medical History Chest pain History of nephrolithotomy with removal of calculi Old [place] (myocardial infarction) Old [place] (myocardial infarction) Psoriasis Surgical History History of lumbar surgery Social History Smoking/Tobacco Use Status: Current every day Tobacco Type: cigarettes Tobacco: How many years used: 25 Smoking risk assessment performed?: Yes Alcohol Intake: current Alcohol Intake frequency: holidays/special occasions only Drug use: Never Substance use type: does not use Do you feel safe at home: Yes Do you feel safe in your relationship?: Yes Exam Const General: no acute distress, well developed, well groomed and not in acute distress Nutritional Appearance: well nourished Orientation: alert and oriented x3 HENMT Head: normocephalic and atraumatic Ears: external ears normal, right TM abnormal (dull) and left TM abnormal (dull) Face and sinus: no erythema, no edema, no fluctuance and other (Left 1 cm hard nodule over mid jaw region, TTP) Mouth: oropharynx normal and moist mucous membranes Teeth and gingiva: gingiva normal and other (missing teeth well-healed. Patient had minor TTP lower R molar) Throat: posterior oropharynx normal, uvula midline and no peritonsillar masses Eyes Conjunctivae: conjunctivae normal Neck Neck: full ROM, supple and no lymphadenopathy noted Chest Chest: normal inspection of the chest and normal palpation of entire chest wall Resp Effort & Inspection: normal respiratory effort Auscultation: clear to auscultation bilaterally Cardio Rate: regular rate Rhythm: regular rhythm Heart Sounds: no murmurs and no rubs GI Inspection: normal to inspection Palpation: soft, tender (Upper abdominal tenderness to palpation without guarding or rebound) and other (non distended) Auscultation: normal bowel sounds Back/Spine/Pelvis Back: no CVA tenderness Skin General skin exam: no rashes or lesions noted and other (pink, hot, dry) Neuro General: patient alert, patient awake and patient oriented x3 Speech: speech normal Motor: strength 5/5 throughout and other (ABREU) Sensory Exam: no sensory deficits noted Extrem General: normal to inspection, full ROM and pedal edema present Psych Mental Status: mental status grossly normal Speech and Movement: speech and movement normal Affect: normal affect Course Vital Signs Vital signs: Vital Signs Temperature 37.3 C 12/10/22 14:45 Pulse 102 H 12/10/22 14:45 Respiratory Rate 20 12/10/22 14:45 Blood Pressure 139/76 12/10/22 14:45 Pulse Oximetry 98 12/10/22 14:45 Temperature 37.3 C 12/10/22 14:45 Temperature Source Oral 12/10/22 14:45 Pulse 102 H 12/10/22 14:45 Respiratory Rate 20 12/10/22 14:45 Blood Pressure 139/76 12/10/22 14:45 Blood Pressure Position Sitting 12/10/22 14:45 Pulse Oximetry 98 12/10/22 14:45 Oxygen Delivery Method Room Air 12/10/22 14:45 Oxygen Flow Rate 0 12/10/22 14:45 Pain Level 5 12/10/22 14:45
--- NOTE | 2022-12-10 16:12 | DI.CT_ITS ---
Exam(s) CT CHEST PE ABD PELVIS W EXAM: CT CHEST PE ABD PELVIS W CLINICAL HISTORY: fever, L pleuritic pain. TECHNIQUE: Imaging Protocol: Axial CT angiography was performed with multi-slice acquisition and m ulti-planar and/or 3D reconstructions. CONTRAST MATERIAL: Intravenous: Omnipaque 350 Contrast volume:100 ml Oral: None COMPARISON: CT CT THORAX CTA from 09/12/2020 FINDINGS: CHEST: PULMONARY ARTERIES: There are no intra-arterial filling defects to suggest the presence of acute pulm onary emboli. LUNGS: There is no evidence of pulmonary infarction. There are no pleural effusions.No ominous pulmo nary nodules. MEDIASTINUM: There is no hilar nor mediastinal adenopathy. CARDIAC: Heart size is normal. There is no pericardial effusion. There is no significant shift of t he interventricular septum.Caliber of the thoracic aorta is within normal limits. No evidence of aor tic dissection. OSSEOUS: No significant osseous lesions.No fractures. ABDOMEN: There is no ascites. LIVER: There are no focal hepatic lesions nor dilatation of intrahepatic ducts. Liver size upper nor mal. GALLBLADDER/BILIARY: No obvious gallbladder pathology. CBD is not dilated. PANCREAS: No evidence of pancreatic mass nor dilatation of the pancreatic duct. SPLEEN: Size upper normal. Splenic and portal veins are patent. ADRENALS: There are no significant adrenal masses. KIDNEYS:Benign cyst noted in superior aspect of the left kidney measuring 1.5 x 1 point 0 cm. Does n ot require further workup. No calculi nor hydronephrosis. No solid renal masses. ABDOMINAL AORTA: Abdominal aorta is not enlarged. LYMPH NODES: There is no retroperitoneal or para-aortic adenopathy. ABDOMINAL WALL/GI: No evidence of significant anterior abdominal wall hernia. No bowel obstruction. PELVIS: LYMPH NODES: There is no intrapelvic nor inguinal adenopathy. GI: No evidence of appendicitis.No evidence of sigmoid diverticulitis. URINARY BLADDER: No calculi nor masses evident REPRODUCTIVE: Prostate size normal. OSSEOUS: No significant osseous lesions. No fractures. IMPRESSION: 1. No evidence of acute pulmonary emboli nor pulmonary infarction. 2. There are no pleural effusions. 3. No evidence of aortic dissection. 4. No ascites. First read by [facility]. RADIATION DOSE DELIVERED: Total DLP DATA REPOSITORY: All CT scans at this facility are submitted to the National Radiology Data Registry (NRDR) Dose Index Registry (DIR) with the [employer] ([employer]). RADIATION OPTIMIZATION: All CT scans at this facility use at least one of these dose optimization te chniques: automated exposure control; mA and/or kV adjustment per patient size (includes targeted exa ms where dose is matched to clinical indication); or iterative reconstruction.
--- NOTE | 2022-12-10 16:15 | RT.EKG_ITS ---
APPROVED REPORT Exam: Resting ECG Reason for Exam: L CP Patient Location: E HR:87 bpm ECG Measurements Heart Rate 87 AXIS AZ 130 P -21 QRSd 90 QRS 259 QT 327 T 54 QTc 394 Conclusion Sinus rhythm...normal P axis, V-rate 60- 99 Left anterior fascicular block...axis(240,-40), init forces inf No change vs 09/12/20
--- NOTE | 2022-12-10 16:17 | DI.CT_ITS ---
Exam(s) CT FACIAL WO EXAM: CT FACIAL WO INDICATION: R jaw pain, swollen node. COMPARISON: CT CT HEAD WO from 09/12/2020 TECHNIQUE: FINDINGS: VISUALIZED PARANASAL SINUSES: Post inflammatory retention cysts noted anteriorly in the left maxillar y sinus. No associated fluid level. There is circumferential mucosal thickening in the opposite-rig ht maxillary sinus. NASOPHARYNX: Unremarkable ORODENTAL: Unremarkable. OROPHARYNX: Prominent tonsils. No obvious focal abscess. HYPOPHARYNX: Unremarkable. Valleculae and epiglottis are included in the field of view appear unrema rkable SALIVARY GLANDS: Submandibular glands appear symmetrical. Mild inflammatory changes seen in the supe rficial aspect right parotid gland and mild subcutaneous stranding in this region. LYMPH NODES: There is no adenopathy evident in the neck and supraclavicular regions. OSSEOUS: No fractures evident. No osseous lesions IMPRESSION: 1. Mild asymmetry superficial right parotid gland, as described above, possibly related to the parot itis or cellulitis. Mild surrounding edema. No gross lymphadenopathy 2. Enlarged tonsils, right larger than left. No obvious tonsillar abscess evident. First read by [facility] RADIATION DOSE DELIVERED: 3392.95 mGy.cm Total DLP 3392.95 mGy.cm Total DLP DATA REPOSITORY: All CT scans at this facility are submitted to the National Radiology Data Registry (NRDR) Dose Index Registry (DIR) with the [employer] (ACR). RADIATION OPTIMIZATION: All CT scans at this facility use at least one of these dose optimization te chniques: automated exposure control; mA and/or kV adjustment per patient size (includes targeted exa ms where dose is matched to clinical indication); or iterative reconstruction.
[2022-12-10] MEDS: Normal Saline 1,000 ML 3270 ML IV (16:22)
[2022-12-10 16:24] LABS: BE (Venous) 0 mmol/L (-2-3); HCO3 (Venous) 25 mmol/L (23-28); O2 Sat (Venous) 74 %; TCO2 (Venous) 21 mmol/L (24-29); pCO2 (Venous) 37 mmHg (41-51); pH (Venous) 7.43 (7.31-7.41); pO2 (Venous) 36 mmHg
[2022-12-10 16:25] LABS: Lactate 1.5 mmol/L (0.6-1.4)
[2022-12-10] MEDS: ACETAMINOPHEN 1,000 MG/100 ML BTL 400 MG IVPB (16:25)
[2022-12-10 16:26] LABS: HGB 15.9 g/dL (13.5-17.5); MCH 30.5 pg (27.0-33.0); MCHC 35.3 % (32.0-36.0); MCV 86 fL (80-95); MPV 8.4 fL (8.0-11.0); Platelet Count 238 10^3/uL (130-400); RBC 5.21 10^6/uL (4.36-5.78); RDW 11.8 % (11.8-14.1); RDW-SD 37.4 fL
[2022-12-10 16:38] LABS: Lipase 49 U/L (16-77)
[2022-12-10 16:41] LABS: ALT 20 U/L (16-63); AST 17 U/L (15-37); Albumin 3.8 g/dL (3.4-5.0); Alkaline Phosphatase 88 U/L (46-116); Anion Gap 13.5 mmol/L (3-11); BUN 13 mg/dL (7-18); Bilirubin, Total 0.6 mg/dL (0.2-1.0); CO2 24.5 mmol/L (21.0-32.0); CREATININE 1.2 mg/dL (0.70-1.30); Calcium 9.2 mg/dL (8.5-10.1); Chloride 102 mmol/L (98-107); Estimated GFR 75.53 (mL/min/1.73m2); Glucose 118 mg/dL (74-106); Potassium 3.9 mmol/L (3.5-5.1); Sodium 140 mmol/L (136-145); Total Protein 7.9 g/dL (6.4-8.2)
[2022-12-10 16:46] LABS: Troponin I < 50 ng/L (<or=60)
[2022-12-10] MEDS: Omnipaque 350 MG/ML 100 ML BTL IJ (16:50)
[2022-12-10] MEDS: Normal Saline - Diluent 50 ML VIAL IV (16:51)
[2022-12-10 17:34] LABS: Abs Immature Grans 0.04 10^3/uL (0.0-0.06); Absolute Basophil Count 0.05 10^3/uL (0.0-0.2); Absolute Lymphocyte Count 1.23 10^3/uL (1.2-3.4); Absolute Neutrophil Count 11.61 10^3/uL (1.2-6.7); Basophils % 0.4; Eosinophils % 0.7; Immature Grans % 0.3; Lymphocytes % 8.6; Monocytes % 8.4; Neutrophils % 81.6
--- NOTE | 2022-12-10 17:52 | DI.VRAD_ITS ---
PROCEDURE INFORMATION: Exam: CTA Chest With Contrast CTA Abdomen With Contrast Exam date and time: 12/10/2022 4:52 PM Age: 47 years old Clinical indication: Fever and other: L pleuritic pain TECHNIQUE: Imaging protocol: Computed tomographic angiography of the chest with contrast. Exam focused on the arteries. Computed tomographic angiography of the abdomen with contrast. Exam focused on the arteries. 3D rendering (Not supervised by radiologist): MIP and/or 3D reconstructed images were created by the technologist. Contrast material: 350; Contrast volume: 100 ml; Contrast route: INTRAVENOUS (IV); COMPARISON: CT THORAX CTA 09/12/2020 1:58 PM FINDINGS: VASCULATURE: Pulmonary arteries: Normal. No pulmonary emboli. Aorta: No aortic aneurysm. No aortic dissection. Small amount of plaque in the abdominal aorta extending into the iliac vessels. Celiac trunk and mesenteric arteries: No occlusion or significant stenosis. Renal arteries: No occlusion or significant stenosis. CHEST: Lungs: Unremarkable. No consolidation. No masses. Pleural spaces: Unremarkable. No pneumothorax. No pleural effusion. Heart: Unremarkable. No cardiomegaly. No pericardial effusion. ABDOMEN AND PELVIS: Liver: The liver is enlarged. There are no cysts, masses or dilated ducts.. Gallbladder and bile ducts: The gallbladder is normal. Pancreas: The pancreas is normal. Spleen: The spleen is enlarged. There are no cysts or masses. Adrenal glands: The adrenal glands are normal. Kidneys and ureters: Simple 1.5 cm cyst medial aspect of the left renal cortex. No hydronephrosis or hydroureter. Stomach and bowel: Unremarkable. No obstruction. No mucosal thickening. Appendix: A normal appendix is identified. Intraperitoneal space: Unremarkable. No free air. No significant fluid collection. Lymph nodes: Unremarkable. No enlarged lymph nodes. Bones/joints: Unremarkable. No acute fracture. Soft tissues: Unremarkable. IMPRESSION: 1. No pulmonary embolism, thoracic aortic aneurysm or dissection. 2. No abdominal aortic aneurysm or dissection. No stenoses. 3. Hepatosplenomegaly. Dictated and Authenticated by: Mehdi Coleman MD. Ordering:HAZEL Cervantes MD
--- NOTE | 2022-12-10 17:55 | DI.VRAD_ITS ---
PROCEDURE INFORMATION: Exam: CT Maxillofacial Without Contrast Exam date and time: 12/10/2022 4:52 PM Age: 47 years old Clinical indication: Other: RT jaw pain, swollen nodes TECHNIQUE: Imaging protocol: Computed tomography of the face without contrast. COMPARISON: No relevant prior studies available. FINDINGS: Orbital cavities: Orbits are normal. Globes are unremarkable. Bones/joints: No acute finding. Paranasal sinuses: There is retention cyst or polyp in the left maxillary sinus. Mild mucosal thickening in the bilateral maxillary sinuses. There is mucosal thickening in the right anterior ethmoidal air cells. Salivary glands: There is stranding and mild enhancement of the right superficial parotid gland more pronounced laterally (81 series 23). There is surrounding edema of the subcutaneous soft tissues with thickening of the platysma and mild edema in the adjacent right burner operator space. Mild edema and enhancement along the inferior wall of the cartilaginous external auditory canal which may be reactive. Mild edema in the right submandibular space. Lymph nodes: Mildly enlarged enhancing lymph node in the right level 1 B . Soft tissues: See Salivary glands finding. Pharynx: There is mild prominence of the adenoids soft tissue. Tonsils are slightly prominent, right greater than left. There is no significant edema. No abscess. IMPRESSION: 1. There is edema in the superficial right parotid gland with mild enhancement which may represent parotitis or cellulitis. There is surrounding mild edema in the submandibular space, burner operator space and overlying subcutaneous soft tissues. Mild edema and enhancement along the cartilaginous inferior wall of the external auditory canal and helix which may be reactive. There is mildly enlarged lymph nodes in the right suprahyoid neck most prominent in the right level 1 B which are likely reactive. 2. No abscess or drainable fluid collection seen. Dictated and Authenticated by: Agustin Mckee MD. Ordering:HAZEL Cervantes MD
[2022-12-10 18:08] LABS: Bilirubin Negative (Negative); Blood Negative (Negative); Clarity Clear (Clear); Glucose Negative (Negative); Ketones Negative (Negative); Leukocyte Esterase Negative (Negative); Nitrite Negative (Negative); Urobilinogen 0.2 mg/dL (Up to 0.2)
[2022-12-10] MEDS: PIPERACILLIN/TAZO 3.375 GM in Normal Saline 50 ML IVPB (18:26)
--- NOTE | 2022-12-10 18:32 | NUR.NOTE ---
Nursing Note:Started pt on Zosyn ordered by . Pt started vomiting within 5 minutes of starting infusion. Infusion stopped and Dr. Mccormick informed. She advised to not continue the zosyn at this time.
[2022-12-10] MEDS: Cephalexin 500 MG CAP PO (19:23)
== END 2022-12-10 19:33 | disposition home or self-care (01) ==
PROVIDERS: Emergency Provider Emergency Medicine; PCP Neuromusculoskeletal Medicine & OMM
DX: K11.20 Sialoadenitis, unspecified (principal); I44.4 Left anterior fascicular block; J34.1 Cyst and mucocele of nose and nasal sinus; F17.290 Nicotine dependence, other tobacco product, uncomplicated
CPT/HCPCS: 71275; 74177; 80053; 82805; 83690; 85027; 87040; 93005; 96365; 96375; 99284; 70486; 81003; 83605; 84484; 85007; 93010; 99283; J0131; J2543; J3490

== ENCOUNTER 2022-12-11 15:26 | Outpatient (CLI) | payer OTHER, SELFPAY ==
--- NOTE | 2022-12-11 | DI.RAD_ITS ---
Exam(s) XR THUMB RT EXAM: XR THUMB RT CLINICAL HISTORY: PAIN RT FINGER M79.644 HX PSORIASIS, PAIN RT THUMB AT IP JOINT. TECHNIQUE: 2D digital imaging was performed. COMPARISON: No exams were available for comparison FINDINGS: 3 views No evidence of acute fracture or dislocation. However, at the level of the interphalangeal joint the re is abnormal dorsal soft tissue calcification noted, just dorsal to the head of the proximal phalan x of the thumb, this calcification measuring 3 by 3 mm. The sesamoid bone on the palm are aspect of this joint appears unremarkable. There is no evidence of erosions at this joint nor at the MCP joint the thumb and the 1st carpometacarpal joint also appears unremarkable. IMPRESSION: Abnormal 3 mm calcification dorsal aspect of the thumb interphalangeal joint. DATA REPOSITORY: RADIATION DOSE DELIVERED:
== END 2022-12-11 15:46 ==
LOC: DI 15:29
PROVIDERS: PCP Neuromusculoskeletal Medicine & OMM; Visit Provider Physician Assistant Medical
DX: M61.441 Other calcification of muscle, right hand (principal); M79.641 Pain in right hand
CPT/HCPCS: 73140

== ENCOUNTER 2023-02-07 20:50 | Emergency (ER) | payer OTHER, SELFPAY ==
[2023-02-07 20:57] VITALS: BP 139/84; PULSE 99; RESP 16; TEMP 36.8; O2SAT 98
--- NOTE | 2023-02-07 20:58 | ED.GENADUL_ITS ---
Discharge Plan Disposition Patient Disposition: Home Discharge Details Clinical Impression: Contact dermatitis due to urushiol Primary Care Provider: Palomo Lofton ED Provider: Jhon Lopez Home Meds and New Rx's Prescriptions: New prednisone 10 mg tablet 10 mg PO Q OTHER DAY Qty: 30 0RF Rx Instructions: This is a schedule for a 12-day taper of prednisone. One tablet is Prednisone 10mg. For the first three days, take 4 tablets every morning with breakfast. For the next three days, take 3 tablets every morning with breakfast For the next three days, take 2 tablets every morning with breakfast For the last three days, take 1 tablet every morning with breakfast Continued Stelara 90 MG/ML syringe 90 mg SQ DIRECTED Patient Comments: takes every 3 months - Discharge Instructions Instructions: Dermatitis (ED) Additional Instructions: You are seen in the emergency department for your rash which is most likely the result of contact irritation causing local reaction to poison rober. Please take the steroids as directed. Please return to the emergency department if you develop shortness of breath difficulty breathing or develop any fevers. Otherwise please follow-up with your primary care provider in 1 week. Discharge Data Discharge Date/Time-TO BE ENTERED AT DEPARTURE: 02/07/23 21:40 Medical Decision Making This is an overall very well-appearing normothermic and not tachycardic 47-year-old male with right upper extremity excoriated skin lesions and exposure to urashiols?most consistent with contact dermatitis. I also considered scabies however the patient does not have any risk factors. I considered toxic shock syndrome however rash does not appear like a sunburn, patient is not toxic appearing and his vitals lack hypotension. No recent new medications and patient is not ill-appearing to suggest dress. Given the patient is right-hand dominant and works as a online journalist and has no reported prior history of dermatitis from urashiols and as result has been clearing poison rober extensively for coworkers my suspicion is high that he has developed a type IV?hypersensitivity reaction to urashiols and as result will benefit from treatment. No signs of folliculitis. I am not concerned for herpes virus. No pain out of proportion to suggest necrotizing soft tissue infection. No signs of fluctuance to suggest abscess. No surrounding erythema to suggest cellulitis. Given lower suspicion for scabies will treat empirically with extended 12-day prednisone taper for contact dermatitis secondary to urashiols. We will proceed with an empiric trial of expectant outpatient management. No airway involvement nor breathing nor circulatory issues to suggest anaphylaxis. I have asked health director [facility] to have the patient seen in 1 week by his primary care provider in the setting of his urticarial rash. I discussed return indications including worsening rash, failed treatment with steroids or any difficultly breath, shortness of breath, syncope or fever. HPI General Date/Time Provider Initiated Documentation: 02/07/23 20:58 . HPI Narrative: This is a right-hand dominant 47-year-old male arrived to the emergency department via private vehicle in the setting of a rash to his arm he developed 5 days ago. Patient reports that he does not have an allergy to poison rober. 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 He has had no pain. No trauma to arm. No new medications. Patient does note that today's rash began itching. He also noted several areas on his left arm that are also itching. No fevers. No difficulty breathing. No shortness of breath. No chest pain. Related Data Home Medications Medication Instructions Recorded Confirmed ustekinumab 90 mg/mL subcutaneous 90 mg SQ DIRECTED 01/05/14 02/07/23 syringe (Stelara) prednisone 10 mg tablet 10 mg PO Q OTHER DAY #30 tabs 02/07/23 Previous Rx's Medication Instructions Recorded prednisone 10 mg tablet 10 mg PO Q OTHER DAY #30 tabs 02/07/23 Allergies Allergy/AdvReac Type Severity Reaction Status Date / Time No Known Allergies Allergy Unverified 02/07/23 20:59 General GARLAND: 3 PFSH All Active Problems (Updated 02/07/23 @ 21:25 by Jhon Lopez MD) Chest pain (Acute) Contact dermatitis due to urushiol (Acute) Dyspnea on exertion (Acute) Mass of oropharynx (Acute) Medical History Chest pain History of nephrolithotomy with removal of calculi [place] infarction[place] Psoriasis Surgical History History of lumbar surgery Social History Smoking/Tobacco Use Status: Current every day Tobacco Type: e-cigarettes Tobacco: How many years used: 25 Smoking risk assessment performed?: Yes Alcohol Intake: current Alcohol Intake frequency: holidays/special occasions only Drug use: Never Substance use type: does not use Do you feel safe at home: Yes Do you feel safe in your relationship?: Yes Exam Narrative Exam Narrative: General: Well-appearing in no acute distress speaking in complete sentences. Head: Normocephalic, atraumatic. Eye: Pupils equal, round reactive to light. Extraocular eye movements intact. No conjunctival injection. No scleral icterus. Ear, nose, mouth, throat: Grossly normal inspection. Normal voice, handling secretions normally. Neck: Trachea midline. Cardiovascular: Well-perfused distal extremities. Respiratory: Nonlabored respiration. Gastrointestinal: Nondistended abdomen. Musculoskeletal: No edema. Moving all 4 extremities spontaneously. Skin: Scattered excoriated lesions to right upper extremity. No signs of bullae. No obvious vesicles. Several excoriated areas on left forearm. 1 exc oriated area on right middle finger between the MCP and PIP joint. Neurologic: Alert and appropriate, no apparent acute deficits. Psychiatric: Mood and manner are appropriate. Grooming and personal hygiene are appropriate. Scattered excoriated
[2023-02-07] MEDS: predniSONE 10 MG TAB PO (21:38)
--- NOTE | 2023-02-08 06:45 | NUR.NOTE ---
Pt placed on care management referral for Poison Alondra to be seen within1 week.
== END 2023-02-07 21:40 | disposition home or self-care (01) ==
PROVIDERS: Emergency Provider Emergency Medicine; PCP Neuromusculoskeletal Medicine & OMM
DX: L25.5 Unspecified contact dermatitis due to plants, except food
CPT/HCPCS: 99283; J7512

== ENCOUNTER 2023-05-26 22:40 | Emergency (ER) | payer OTHER, SELFPAY ==
[2023-05-26 22:46] VITALS: BP 137/93; PULSE 80; RESP 18; TEMP 36.6; O2SAT 98
--- NOTE | 2023-05-26 23:09 | W.ED.GENAD ---
Discharge Plan Disposition Patient Disposition: Home Condition: Stable Discharge Details Clinical Impression: Suture check Primary Care Provider: Palomo Lofton ED Provider: Daksha Mckeon Home Meds and New Rx's Prescriptions: New cephalexin 500 mg tablet 500 mg PO BID 10 Days Qty: 20 0RF Rx Instructions: Take 1 tablet twice daily with food for the next 10 days. No Action Stelara 90 mg/mL syringe 90 mg SUBCUT [id number] Discharge Instructions Instructions: Cellulitis (ED) Additional Instructions: Please call the surgeon on Sunday to see if he can get a sooner appointment. Keep clean and dry and covered while working. Do not touch the area. Please take the antibiotics as directed. Take the antibiotics with yogurt or probiotic. Referrals: [facility] [Outside] Palomo Lofton [Primary Care Provider] - 2 weeks Medical Decision Making 47-year-old male presents to the ER with a chief complaint of reddened area at suture surgical site. He did have a rotator cuff repair at [facility] 10 days ago. He noticed the redness of the suture area prior to arrival. No fever no surrounding induration. He also reports he has had a reaction to a dressing that he put on. He is no longer wearing the sling as instructed. 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 He does have a history of psoriasis, he has no joint pain. He is moving the extremity without difficulty. There is no drainage noted. He did leave it open to air today under his shirt. No evidence of septic joint, patient denies any joint pain no difficulty moving his shoulder. No fever no chills. Patient was given cephalexin twice daily with 2 tablets to go. Instructed to call his surgeon on Sunday for sooner follow-up appointment if needed. Instructed on home care and wound care including not to touch the area, keep covered when at work or outside when the site may get dirty. Patient verbalized understanding. This text was generated using Instant AVation system, please disregard any oddities of phrase or misspellings. HPI General Mode of arrival: ambulatory. Date/Time Provider Initiated Documentation: 05/26/23 22:57. Limitations to Documentation: no limitations. Information obtained by: patient, RN notes reviewed and old records reviewed. HPI Narrative: 47-year-old male presents to the ER with a chief complaint of reddened area at suture surgical site. He did have a rotator cuff repair at [facility] 10 days ago. He noticed the redness of the suture area prior to arrival. No fever no surrounding induration. He also reports he has had a reaction to a dressing that he put on. He is no longer wearing the sling as instructed. 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 He does have a history of psoriasis, he has no joint pain. He is moving the extremity without difficulty. There is no drainage noted. He did leave it open to air today underinsured. Related Data Home Medications Medication Instructions Recorded Confirmed cephalexin 500 mg tablet 500 mg PO BID 10 days #20 tabs 05/26/23 ustekinumab 90 mg/mL subcutaneous 90 mg subcut [id number] 05/26/23 05/26/23 syringe (Stelara) Previous Rx's Medication Instructions Recorded cephalexin 500 mg tablet 500 mg PO BID 10 days #20 tabs 05/26/23 Allergies Allergy/AdvReac Type Severity Reaction Status Date / Time No Known Allergies Allergy Unverified 02/07/23 20:59 General Stated Complaint: RashLesion GARLAND: 4 Review of Systems Integumentary/Breasts Skin/Breast: Reports as per HPI and Reports erythema PFSH All Active Problems (Updated 05/26/23 @ 23:23 by Daksha Mckeon NP) Suture check (Acute) Chest pain (Acute) Dyspnea on exertion (Acute) Mass of oropharynx (Acute) Medical History Chest pain [place] infarction) Psoriasis History of nephrolithotomy with removal of calculi Surgical History History of lumbar surgery Social History Smoking/Tobacco Use Status: Current every day Tobacco Type: e-cigarettes Tobacco: How many years used: 25 Smoking risk assessment performed?: Yes Alcohol Intake: current Alcohol Intake frequency: holidays/special occasions only Drug use: Never Substance use type: does not use Housing: house Do you feel safe at home: Yes Do you feel safe in your relationship?: Yes Exam Skin Wounds: wounds noted (3 surgical incision sites noted with sutures in place. Horizontal mattress) Extrem Shoulder/upper arm images: 1. Surgical incisions, no joint swelling, there is some healing ecchymosis noted in the axilla, 2. Surgical incision, there is some abrasions which are superficial noted surrounding the suture sites which patient attributes to reaction to the bandages. 3. Surgical incision noted with horizontal mattress sutures in place, erythema noted around the suture site, no drainage no swelling no surrounding significant erythema. Course Vital Signs Vital signs: Vital Signs Temperature 36.6 C 05/26/23 22:46 Pulse 80 05/26/23 22:46 Respiratory Rate 18 05/26/23 22:46 Blood Pressure 137/93 H 05/26/23 22:46 Pulse Oximetry 98 05/26/23 22:46 Temperature 36.6 C 05/26/23 22:46 Temperature Source Temporal Artery Scan 05/26/23 22:46 Pulse 80 05/26/23 22:46 Respiratory Rate 18 05/26/23 22:46 Respiratory Effort Normal, Non-Labored 05/26/23 22:52 Blood Pressure 137/93 H 05/26/23 22:46 Blood Pressure Position Sitting 05/26/23 22:46 Pulse Oximetry 98 05/26/23 22:46 Oxygen Delivery Method Room Air 05/26/23 22:46 Oxygen Flow Rate 0 05/26/23 22:46 Pain Level 0 05/26/23 22:46
[2023-05-26] MEDS: Cephalexin 500 MG CAP PO (23:21)
[2023-05-26] MEDS: Cephalexin 500 MG CAP, 2 CAPS/BTL PO (23:22)
== END 2023-05-26 23:27 | disposition home or self-care (01) ==
PROVIDERS: Emergency Provider Registered Nurse Emergency; PCP Neuromusculoskeletal Medicine & OMM
DX: L53.9 Erythematous condition, unspecified (principal); L40.9 Psoriasis, unspecified; I25.2 Old myocardial infarction; Z98.890 Other specified postprocedural states; Z79.69 Long term (current) use of other immunomodulators and immunosuppressants
CPT/HCPCS: 99282

== ENCOUNTER 2023-06-23 22:32 | Emergency (ER) | payer OTHER, SELFPAY ==
--- NOTE | 2023-06-23 22:30 | DI.RAD_ITS ---
Exam(s) XR SHOULDER RT COMPLETE 2+V EXAM: XR SHOULDER RT COMPLETE 2+V CLINICAL HISTORY: R shoulder pain. TECHNIQUE: 2D digital imaging was performed. Five views. COMPARISON: CR XR SHOULDER LT COMPLETE 2+V from 08/06/2019 FINDINGS: BONES: No acute fracture is present. No bony destructive lesion is seen. Metallic density in humeral head related to rotator cuff repair surgery. Surgical resection of the distal clavicle. JOINTS: No dislocation present. SOFT TISSUE: Normal. IMPRESSION: No acute abnormality. DATA REPOSITORY: RADIATION DOSE DELIVERED:
[2023-06-23 22:35] VITALS: BP 132/92; PULSE 91; RESP 18; TEMP 36.7; O2SAT 4
--- NOTE | 2023-06-23 22:41 | ED.GENADUL_ITS ---
HPI General Date/Time Provider Initiated Documentation: 06/23/23 22:34 . HPI Narrative: 47 year-old male presents to ED today by POV/ambulating with a chief complaint of R shoulder pain (R-hand dominant) after rotator cuff surgery in May- has been overdoing it working on vehicles. Surgery was performed at [facility] by Dr. Pimentel- patient has not been able to reach Dr. Pimentel. Quality described as general soreness to shoulder, pain with lifting his arm, no radiation to fever, redness, neck pain, numbness/tingling down the arm, new trauma. Severity is described as 5-6/10. Palliating factors include nothing specific attempted. Provoking factors include overuse, patient is not doing any PT. Patient not anticoagulated. Related Data Home Medications Medication Instructions Recorded Confirmed ustekinumab 90 mg/mL subcutaneous 90 mg subcut [id number] 05/26/23 05/26/23 syringe (Stelara) Allergies Allergy/AdvReac Type Severity Reaction Status Date / Time No Known Allergies Allergy Unverified 06/23/23 22:50 General Stated Complaint: Orthopedic GARLAND: 4 Review of Systems All systems reviewed & are unremarkable except as noted in HPI and below Exam Narrative Exam Narrative: GENERAL APPEARANCE: Well-nourished, non-toxic, awake and alert, atraumatic, no acute distress. SKIN: Warm, pink, dry, intact, without rashes/lesions/ulcerations. HEAD: Normocephalic, atraumatic, normal hair distribution for gender/age. EYES: Pupils PERRLA, EOMs intact without nystagmus, normal conjunctiva, no exudates on lids/lashes. ENT: Nares patent, no circumoral cyanosis, no facial swelling NECK: Supple, trachea midline, painless cervical ROM. LUNGS/CHEST: Non-labored respirations, normal A/P diameter, symmetrical expansion, no chest wall deformity HEART (CV/PV): Regular rate, R radial pulse 2+, no peripheral edema, no JVD. ABDOMEN: Soft, non-distended, no guarding. MSK: Normal ROM, no swelling/deformity to bilateral UEs or LEs, moving all extremities without weakness, no cyanosis, spine midline without tenderness, normal curvature. R UE: Tenderness to palpation around the entire right shoulder without crepitus or deformity, no erythema, no warmth to touch, no pain with passive range of motion, Speed's Test positive, empty can positive, lap incision sites healing well. NEURO: Mental Status AAOx4 - alert to person, place, time, events No facial droop, no forehead involvement. Motor: No focal weakness - strength 5/5 in bilateral UEs and LEs, proximal and distal, symmetric. Sensory: sensation intact to light touch globally. Gait normal: patient ambulated without ataxia into ED room. PSYCH: euthymic, cooperative, pleasant, appropriate speech Course Vital Signs Vital signs: Vital Signs Temperature 36.7 C 06/23/23 22:35 Pulse 91 H 06/23/23 22:35 Respiratory Rate 18 06/23/23 22:35 Blood Pressure 132/92 H 06/23/23 22:35 Pulse Oximetry 4 L 06/23/23 22:35 Temperature 36.7 C 06/23/23 22:35 Pulse 91 H 06/23/23 22:35 Respiratory Rate 18 06/23/23 22:35 Respiratory Effort Normal 06/23/23 22:37 Blood Pressure 132/92 H 06/23/23 22:35 Pulse Oximetry 4 L 06/23/23 22:35 Oxygen Delivery Method Room Air 06/23/23 22:35 Oxygen Flow Rate 0 06/23/23 22:35 Medical Decision Making This dictation utilizes [id number] dictation software and may contain unedited grammatical errors. 47 y/o M presents to ED today with a chief complaint of R shoulder pain, post- operatively from May performed at [facility] by Dr. Pimentel- rotator cuff repair. 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 Patients' medical history: CAD/NE. Family and social history: noncontributory. Pertinent exam findings / vital signs include R UE: Tenderness to palpation around the entire right shoulder without crepitus or deformity, no erythema, no warmth to touch, no pain with passive range of motion, Speed's Test positive, empty can positive, lap incision sites healing well.. Differential / pathologies of concern include rotator cuff tear, unlikely fracture, not neurovascular compromise. Diagnostic studies of: -X-ray of the right shoulder, no acute fracture seen, surgical clips seems in place from his recent surgery. Interventions of: -None. ED Course/Assessment/Plan: Counseled the patient that he should likely pursue follow-up with his surgeon for surgical complications and the course of healing. There is no acute fracture I do not see a large effusion in the joint on x-ray, counseled the patient that he is likely performing overuse manual labor on recent surgery to his right rotator cuff. Counseled on therapeutic dosing Tylenol and ibuprofen and RICE therapy. Findings not consistent with fracture or neurovascular compromise. Disposition of Pain in Right Shoulder. Patient verbalized understanding of the plan and return to ED criteria and engaged in shared decision making. Medical Records Medical records reviewed: Yes I reviewed the patient's medical records. Imaging Data Radiologic Study: Attestation: I personally reviewed and interpreted this imaging study as follows: Imaging: X-Ray Radiologist's impression: Exam: XR Right Shoulder Exam date and time: 06/23/2023 10:46 PM Age: 47 years old Clinical indication: Pain; Right; Prior surgery; Surgery date: <1 month; Surgery type: RT shoulder surgery TECHNIQUE: Imaging protocol: Radiologic exam of the right shoulder. Views: 2 or more views. COMPARISON: MR UPPER JOINT RT WO 07/04/2022 7:47 AM FINDINGS: Bones/joints: Postsurgical changes of the proximal right humerus with indwelling anchor. No acute fracture or dislocation. Acromioclavicular and coracoclavicular intervals are preserved. Soft tissues: No focal abnormality. IMPRESSION: No acute fracture or dislocation. Dictated and Authenticated by: Inderjit Banda MD. Ordering:DAMARIS Gonsalves MD Quality:SDOH Health Related Social Needs: No Data to Display PFSH All Active Problems (Updated 06/26/23 @ 00:05 by LUCA TUCKER) Pain in right shoulder (Acute) Chest pain (Acute) Dyspnea on exertion (Acute) Mass of oropharynx (Acute) Medical History Chest pain [place] Psoriasis History of nephrolithotomy with removal of calculi Surgical History History of lumbar surgery Social History Smoking/Tobacco Use Status: Current every day Tobacco Type: e-cigarettes Tobacco: How many years used: 25 Smoking risk assessment performed?: Yes Alcohol Intake: current Alcohol Intake frequency: holidays/special occasions only Drug use: Never Substance use type: does not use Housing: house Do you feel safe at home: Yes Do you feel safe in your relationship?: Yes Discharge Plan Disposition Patient Disposition: Home Condition: Stable Discharge Details Clinical Impression: Pain in right shoulder Primary Care Provider: Palomo Lofton ED Provider: Major Son Home Meds and New Rx's Prescriptions: No Action Stelara 90 mg/mL syringe 90 mg SUBCUT [id number] Discharge Instructions Instructions: Shoulder Pain (ED) Additional Instructions: Are seen in the emergency department for your right shoulder pain, you had a prior rotator cuff repair in May, there is no fracture seen on x-ray there is no calcific tendinitis seen on x-ray, your surgical clip appears to be in place and there is no major shoulder effusion. I suspect that you are having postoperative pain from over extending your shoulder with working on vehicles. Please follow-up with Dr. Pimentel for evaluation which you have arranged for later this month. Please go back onto an aggressive rest, ice, compression and elevation regimen as well as therapeutic dosing of Tylenol and Aleve as we discussed. 1000 mg Tylenol every 6 hours, 220 mg Aleve in the morning and in the evening. Please return for any pain with passive range of motion as we discussed, any increasing redness any fevers or inability to move the arm or cold painful numb distal arm Referrals: Palomo Lofton [Primary Care Provider] - Alexandru Pimentel [ NON-[facility] STAFF PHYSICIAN] - (Post-operative pain seen in [facility] ED) Discharge Data Discharge Date/Time-TO BE ENTERED AT DEPARTURE: 06/23/23 23:21
--- NOTE | 2023-06-23 23:02 | DI.VRAD_ITS ---
PROCEDURE INFORMATION: Exam: XR Right Shoulder Exam date and time: 06/23/2023 10:46 PM Age: 47 years old Clinical indication: Pain; Right; Prior surgery; Surgery date: <1 month; Surgery type: RT shoulder surgery TECHNIQUE: Imaging protocol: Radiologic exam of the right shoulder. Views: 2 or more views. COMPARISON: MR UPPER JOINT RT WO 07/04/2022 7:47 AM FINDINGS: Bones/joints: Postsurgical changes of the proximal right humerus with indwelling anchor. No acute fracture or dislocation. Acromioclavicular and coracoclavicular intervals are preserved. Soft tissues: No focal abnormality. IMPRESSION: No acute fracture or dislocation. Dictated and Authenticated by: Inderjit Banda MD. Ordering:DAMARIS Gonsalves MD
== END 2023-06-23 23:21 | disposition home or self-care (01) ==
PROVIDERS: Emergency Provider Physician Assistant; PCP Neuromusculoskeletal Medicine & OMM
DX: M25.511 Pain in right shoulder (principal); G89.18 Other acute postprocedural pain; I25.2 Old myocardial infarction; F17.290 Nicotine dependence, other tobacco product, uncomplicated
CPT/HCPCS: 99283; 73030

== ENCOUNTER 2023-09-03 23:01 | Emergency (ER) | payer OTHER, SELFPAY ==
[2023-09-03 23:04] VITALS: BP 134/93; PULSE 86; RESP 16; TEMP 36.7; O2SAT 99
--- NOTE | 2023-09-03 23:12 | W.ED.GENAD ---
Discharge Plan Disposition Patient Disposition: Home Condition: Good Discharge Details Clinical Impression: Tick bite Primary Care Provider: Palomo Lofton ED Provider: Danielle Hirsch Home Meds and New Rx's Prescriptions: Continued Stelara 90 mg/mL syringe 90 mg SUBCUT [id number] Discharge Instructions Referrals: Palomo Lofton [Primary Care Provider] - [facility] General Mode of arrival: ambulatory. Date/Time Provider Initiated Documentation: 09/03/23 23:11. Limitations to Documentation: no limitations. Information obtained by: patient. HPI Narrative: 48yo M presenting after tick bite with concern for retained head. Noted tick ~ 1 hour ago, removed by twisting with hemostats. Tick not engorged. Not present 24 hours ago. Pt thought head may have been stuck in his skin. Unable to identify exact location of tick bite, was on upper left chest. Otherwise in his usual state of health. Related Data Home Medications Medication Instructions Recorded Confirmed ustekinumab 90 mg/mL subcutaneous 90 mg subcut [id number] 05/26/23 09/03/23 syringe (Stelara) Allergies Allergy/AdvReac Type Severity Reaction Status Date / Time No Known Allergies Allergy Unverified 09/03/23 23:08 General Stated Complaint: InsectBite GARLAND: 5 Review of Systems All systems reviewed & are unremarkable except as noted in HPI and below Exam Narrative Exam Narrative: General: Alert, well appearing, well nourished, in no acute distress. Head: Normocephalic, atraumatic Neck: Trachea midline, ?Neck supple. Cardiac: ?No cyanosis. Resp: No respiratory distress. Speaking in full sentences. . Abd: ?Non-distended, Extremities: ?No deformities.? Neurologic: GCS 15. ? Moves all extremities freely against gravity Skin: Tiny defect in skin of left upper chest, no surrounding erythema, no palpable mass. Course Vital Signs Vital signs: Vital Signs Temperature 36.7 C 09/03/23 23:04 Pulse 86 09/03/23 23:04 Respiratory Rate 16 09/03/23 23:04 Blood Pressure 134/93 H 09/03/23 23:04 Pulse Oximetry 99 09/03/23 23:04 Temperature 36.7 C 09/03/23 23:04 Temperature Source Temporal Artery Scan 09/03/23 23:04 Pulse 86 09/03/23 23:04 Respiratory Rate 16 09/03/23 23:04 Respiratory Effort Normal, Non-Labored 09/03/23 23:08 Blood Pressure 134/93 H 09/03/23 23:04 Blood Pressure Position Sitting 09/03/23 23:04 Pulse Oximetry 99 09/03/23 23:04 Oxygen Delivery Method Room Air 09/03/23 23:04 Oxygen Flow Rate 0 09/03/23 23:04 Pain Level 0 09/03/23 23:04 Medical Decision Making 48yo M presenting after tick bite with concern for retained head. Noted tick ~ 1 hour ago, removed by twisting with hemostats. Tick not engorged. Not present 24 hours ago. Pt thought head may have been stuck in his skin. Unable to identify exact location of tick bite, was on upper left chest. Vital signs reassuring, on exam likely location of tick identified in left upper chest, no indication of retained parts. Advised patient to use bacitracin, monitor for signs of infection, present for medical care for erythema/pain/discharge. No indication for lyme prophylaxis. Discharge instructions verbally reviewed with patient; he did not want to wait for written discharge instructions or further nursing assessment. Discharged home; discharge instructions and return precautions were reviewed with patient who verbalized understanding. All questions were answered and he is in full agreement with the plan. Quality:SDOH Health Related Social Needs: No Data to Display PFSH All Active Problems (Updated 09/03/23 @ 23:26 by Danielle Hirsch MD) Tick bite (Acute) Chest pain (Acute) Dyspnea on exertion (Acute) Mass of oropharynx (Acute) Medical History Chest pain [place] (myocardial infarction[place] (myocardial infarction) Psoriasis History of nephrolithotomy with removal of calculi Surgical History History of lumbar surgery Social History Smoking/Tobacco Use Status: Current every day Tobacco Type: e-cigarettes Tobacco: How many years used: 25 Smoking risk assessment performed?: Yes Alcohol Intake: current Alcohol Intake frequency: holidays/special occasions only Drug use: Never Substance use type: does not use Housing: house Do you feel safe at home: Yes Do you feel safe in your relationship?: Yes
== END 2023-09-03 23:27 | disposition home or self-care (01) ==
LOC: ER 23:39
PROVIDERS: Emergency Provider Student in an Organized Health Care Education/Training Program; PCP Neuromusculoskeletal Medicine & OMM
DX: S20.362A Insect bite (nonvenomous) of left front wall of thorax, initial encounter (principal); W57.XXXA Bitten or stung by nonvenomous insect and other nonvenomous arthropods, initial encounter
CPT/HCPCS: 99282

== ENCOUNTER 2023-09-30 21:14 | Emergency (ER) | payer OTHER, SELFPAY ==
[2023-09-30 21:22] VITALS: BP 130/94; PULSE 95; RESP 14; TEMP 36.4
[2023-09-30] MEDS: Fluorescein STRIPS 100/BOX 1 MG OP (21:51)
[2023-09-30] MEDS: Tetracaine 0.5% 4 ML BTL OP (21:51)
--- NOTE | 2023-09-30 21:53 | ED.GENADUL_ITS ---
Discharge Plan Disposition Patient Disposition: Home Condition: Stable Discharge Details Clinical Impression: Corneal irritation of left eye Primary Care Provider: Palomo Lofton ED Provider: Major Son Home Meds and New Rx's Prescriptions: Continued Stelara 90 mg/mL syringe 90 mg SUBCUT [id number] Discharge Instructions Instructions: Corneal Abrasion (ED) Additional Instructions: You were seen in the emergency department for your possible exposure to likely dilute car battery acid to your left eye. I do not suspect any significant injury to your eye, there was no ulceration or abrasion seen on fluorescein exam and your pH of your eye was 7 which is a neutral pH. Regardless of this I am giving you erythromycin ointment to place in your left eye 4 times per day for 5 days to prevent any kind of infection. Please flush her eye out daily on the first day or 2 for any residual discomfort from the dye we placed in your eye. Please return immediately for any loss of vision, any significant drainage appearing from the eye. Referrals: Palomo Lofton [Primary Care Provider] - Discharge Data Discharge Date/Time-TO BE ENTERED AT DEPARTURE: 09/30/23 22:23 HPI General Date/Time Provider Initiated Documentation: 09/30/23 21:27 . HPI Narrative: 48 year-old male presents to ED today by POV/ambulating with a chief complaint of foreign substance to L eye while working underneath a vehicle- thinks it was battery acid with onset at 2039. Quality described as mild eye irritation, no radiation to visual loss, severe eye pain, redness, discharge- patient states he flushed his eye right away. Severity is described as moderate. Palliating factors include flushed eye right away. Provoking factors include nothing specific. Patient not anticoagulated. Related Data Home Medications Medication Instructions Recorded Confirmed ustekinumab 90 mg/mL subcutaneous 90 mg subcut [id number] 05/26/23 09/30/23 syringe (Stelara) Allergies Allergy/AdvReac Type Severity Reaction Status Date / Time No Known Allergies Allergy Unverified 09/30/23 21:30 General Stated Complaint: EyeProblem GARLAND: 4 Review of Systems All systems reviewed & are unremarkable except as noted in HPI and below Exam Narrative Exam Narrative: GENERAL APPEARANCE: Well-nourished, non-toxic, awake and alert, atraumatic, no acute distress. SKIN: Warm, pink, dry, intact, without rashes/lesions/ulcerations. HEAD: Normocephalic, atraumatic, normal hair distribution for gender/age. EYES: Pupils PERRLA, EOMs intact without nystagmus, normal conjunctiva, no exudates on lids/lashes, both eyes 20/25. OS: No redness, no conjunctival erythema, no visual defect in the surface of the cornea, no hard eye to close dye palpation, no ulceration or abrasion or burn seen on fluorescein exam, pH 7 ENT: Nares patent, no circumoral cyanosis, no facial swelling NECK: Supple, trachea midline, painless cervical ROM. LUNGS/CHEST: Non-labored respirations, normal A/P diameter, symmetrical expansion, no chest wall deformity HEART (CV/PV): No peripheral edema, no JVD. ABDOMEN: Soft, non-distended, no guarding. MSK: Normal ROM, no swelling/deformity to bilateral UEs or LEs, moving all extremities without weakness, no cyanosis, spine midline without tenderness, normal curvature. NEURO: Mental Status AAOx4 - alert to person, place, time, events No facial droop, no forehead involvement. Motor: No focal weakness - strength 5/5 in bilateral UEs and LEs, proximal and distal, symmetric. Sensory: sensation intact to light touch globally. Gait normal: patient ambulated without ataxia into ED room. PSYCH: euthymic, cooperative, pleasant, appropriate speech Course Vital Signs Vital signs: Vital Signs Temperature 36.4 C L 09/30/23 21:22 Pulse 95 H 09/30/23 21:22 Respiratory Rate 14 09/30/23 21:22 Blood Pressure 130/94 H 09/30/23 21:22 Temperature 36.4 C L 09/30/23 21:22 Temperature Source Tympanic 09/30/23 21:22 Pulse 95 H 09/30/23 21:22 Respiratory Rate 14 09/30/23 21:22 Respiratory Effort Normal 09/30/23 21:28 Blood Pressure 130/94 H 09/30/23 21:22 End Tidal Co2 0 09/30/23 21:22 Medical Decision Making This dictation utilizes [id number] dictation software and may contain unedited grammatical errors. 48 y/o M presents to ED today with a chief complaint of possible battery acid from car battery to L eye, flushed immediately with water, denies severe eye pain/redness/discharge, mild blurred vision. Patient states it was from the vent of the battery. Patients' medical history: noncontributory. Family and social history: noncontributory. Pertinent exam findings / vital signs include EYES: Pupils PERRLA, EOMs intact without nystagmus, normal conjunctiva, no exudates on lids/lashes, both eyes 20/25. OS: No redness, no conjunctival erythema, no visual defect in the surface of the cornea, no hard eye to close dye palpation, no ulceration or abrasion or burn seen on fluorescein exam, pH 7. Differential / pathologies of concern include corneal burn, corneal abrasion, foreign body, unlikely deep corneal ulceration. Diagnostic studies of: -Fluorescein eye exam-no defect, no ulceration, no burn visualized, pH test shows a neutral pH of 7. Interventions of: -Provided erythromycin ointment for infection prophylaxis. ED Course/Assessment/Plan: 48-year-old male presents with a possible foreign body exposure of battery acid while working underneath a vehicle to his left eye, states he flushed it immediately. He has symmetrical vision in both eyes without significant defect, there is no corneal defect at all seen on fluorescein exam and his pH is neutral, I do suspect that this was likely water from the cell or collected in the battery that spilled out while he was working on the vehicle, I do not suspect a significant chemical exposure to the eye, counseled the patient on erythromycin use for infection prophylaxis, stressed strict return criteria to this ER or any ER with ophthalmology goal capability for any loss of vision or worsening symptoms over the next 24 to 48 hours. Findings not consistent with chemical burn, corneal ulceration, corneal abrasion, visualized foreign body. Disposition of corneal irritation of left eye. Patient verbalized understanding of the plan and return to ED criteria and engaged in shared decision making. Medical Records Medical records reviewed: Yes I reviewed the patient's medical records. Quality:SDOH Health Related Social Needs: No Data to Display PFSH All Active Problems (Updated 09/30/23 @ 22:00 by ABDELRAHMAN Gordon) Corneal irritation of left eye (Acute) Tick bite (Acute) Chest pain (Acute) Dyspnea on exertion (Acute) Mass of oropharynx (Acute) Medical History Chest pain [place]my[place] infarction) Psoriasis History of nephrolithotomy with removal of calculi Surgical History History of lumbar surgery Social History Smoking/Tobacco Use Status: Current every day Tobacco Type: e-cigarettes Tobacco: How many years used: 25 Smoking risk assessment performed?: Yes Alcohol Intake: current Alcohol Intake frequency: holidays/special occasions only Drug use: Never Substance use type: does not use Housing: house Do you feel safe at home: Yes Do you feel safe in your relationship?: Yes
[2023-09-30] MEDS: Erythromycin Ophth Oint 3.5 GM TUBE OS (22:11)
== END 2023-09-30 22:23 | disposition home or self-care (01) ==
PROVIDERS: Emergency Provider Physician Assistant; PCP Neuromusculoskeletal Medicine & OMM
DX: T54.2X4A Toxic effect of corrosive acids and acid-like substances, undetermined, initial encounter (principal); H57.12 Ocular pain, left eye; I25.10 Atherosclerotic heart disease of native coronary artery without angina pectoris; F17.210 Nicotine dependence, cigarettes, uncomplicated
CPT/HCPCS: 99283

== ENCOUNTER 2023-11-11 19:17 | Emergency (ER) | payer OTHER, SELFPAY ==
[2023-11-11 19:20] VITALS: BP 137/90; PULSE 98; RESP 16; TEMP 36.9; O2SAT 98
--- NOTE | 2023-11-11 19:38 | ED.GENADUL_ITS ---
Discharge Plan Disposition Patient Disposition: Home Discharge Details Clinical Impression: Folliculitis Primary Care Provider: Palomo Lofton ED Provider: Magalys Sanches Home Meds and New Rx's Prescriptions: New mupirocin 2 % ointment 1 applic topical TID 7 Days Qty: 22 0RF Continued Stelara 90 mg/mL syringe 90 mg SUBCUT [id number] Discharge Instructions Instructions: Folliculitis (ED) Additional Instructions: Please call your primary care provider first thing in the morning to schedule follow-up appointment when you return home. I have prescribed for you an antibiotic ointment. Please apply 3 times a day to the lesions. I recommend that you wash your abdomen daily with an antimicrobial cleanser such as 10% benzyl peroxide body wash. Leave on for 5-10 minutes, then rinse thoroughly. Be sure to change out of sweaty clothes immediately. Return to emergency care if you develop new fevers, significant growth of your lesions into abscesses, new belly pain, or if you are very worried and need to be rechecked again immediately HPI General Date/Time Provider Initiated Documentation: 11/11/23 19:19 . HPI Narrative: Bola is a 48-year-old male with rheumatoid arthritis with Stelara who presents to the emergency department for evaluation of rash to his abdomen. He reports this has been ongoing for couple of months, unclear of what triggers might be. No family members have similar rash. He reports he is otherwise been feeling well, no fever/chills or general malaise. Lesions are located on his abdomen, have been present since onset, some of them are starting to fade at this time. He does notice that some of them are growing around hair follicles, he has pulled hair out of some of them. Occasional drainage of pus from the lesions. No previous history of skin infections. Related Data Home Medications Medication Instructions Recorded Confirmed ustekinumab 90 mg/mL subcutaneous 90 mg subcut [id number] 05/26/23 09/30/23 syringe (Stelara) mupirocin 2 % topical ointment 1 applic topical TID 7 days #22 11/11/23 grams Previous Rx's Medication Instructions Recorded mupirocin 2 % topical ointment 1 applic topical TID 7 days #22 11/11/23 grams Allergies Allergy/AdvReac Type Severity Reaction Status Date / Time No Known Allergies Allergy Unverified 09/30/23 21:30 General Stated Complaint: RashLesion GARLAND: 4 Review of Systems Narrative: see HPI Exam Const General: cooperative, no acute distress and well developed Resp Effort & Inspection: normal respiratory effort and able to speak in complete sentences Skin Rashes: other (Numerous round erythematous papules scattered across anterior abdomen. ) Course Vital Signs Vital signs: Vital Signs Temperature 36.9 C 11/11/23 19:20 Pulse 98 H 11/11/23 19:20 Respiratory Rate 16 11/11/23 19:20 Blood Pressure 137/90 11/11/23 19:20 Pulse Oximetry 98 11/11/23 19:20 Temperature 36.9 C 11/11/23 19:20 Temperature Source Tympanic 11/11/23 19:20 Pulse 98 H 11/11/23 19:20 Respiratory Rate 16 11/11/23 19:20 Respiratory Effort Normal 11/11/23 19:26 Blood Pressure 137/90 11/11/23 19:20 Blood Pressure Position Sitting 11/11/23 19:20 Pulse Oximetry 98 11/11/23 19:20 Oxygen Delivery Method Room Air 11/11/23 19:20 Oxygen Flow Rate 0 11/11/23 19:20 Pain Level 0 11/11/23 19:20 Medical Decision Making oBla is a 48-year-old male with rheumatoid arthritis with Stelara who presents to the emergency department for evaluation of rash to his abdomen. He reports this has been ongoing for couple of months, unclear of what triggers might be. No family members have similar rash. He reports he is otherwise been feeling well, no fever/chills or general malaise. Lesions are located on his abdomen, have been present since onset, some of them are starting to fade at this time. He does notice that some of them are growing around hair follicles, he has pulled hair out of some of them. Occasional drainage of pus from the lesions. No previous history of skin infections. Physical exam remarkable for round erythematous tender lesions (0.5-1 cm diameter) scattered around the abdomen. Some have a central area of scabbing. No surrounding cellulitis. History and presentation consistent with folliculitis. No red flags at this time for serious extension of infection/systemic symptoms indicating need for bloodwork. As patient is on immune suppressants, will treat with mupirocin and have him follow-up closely with PCP recommend use of benzyl peroxide for an timicrobial effects. Reviewed red flags indicate need for return to emergency care. He will follow-up with PCP for reassessment.. Quality:SDOH Health Related Social Needs: No Data to Display PFSH All Active Problems (Updated 11/11/23 @ 19:41 by Magalys Hubbard) Folliculitis (Acute) Chest pain (Acute) Dyspnea on exertion (Acute) Mass of oropharynx (Acute) Medical History Chest pain [place] (myocardial infarction) [place] (myocardial infarction) Psoriasis History of nephrolithotomy with removal of calculi Surgical History History of lumbar surgery Social History Smoking/Tobacco Use Status: Current every day Tobacco Type: e-cigarettes Tobacco: How many years used: 25 Smoking risk assessment performed?: Yes Alcohol Intake: current Alcohol Intake frequency: holidays/special occasions only Drug use: Never Substance use type: does not use Housing: house Do you feel safe at home: Yes Do you feel safe in your relationship?: Yes
[2023-11-11] MEDS: Mupirocin 2% Oint. 22 GM TUBE TP (19:59)
[2023-11-11 20:00] VITALS: BP 137/90; PULSE 80; RESP 16; TEMP 36.9; O2SAT 98
--- NOTE | 2023-11-11 20:50 | NUR.NOTE ---
Pt placed on care management referral list to see PCP for follicitis within 2 weeks per ABDELRAHMAN Alexis referral sent to Palomo noonan
== END 2023-11-11 20:00 | disposition home or self-care (01) ==
PROVIDERS: Emergency Provider Nurse Practitioner Family; PCP Neuromusculoskeletal Medicine & OMM
DX: L73.9 Follicular disorder, unspecified (principal); I25.2 Old myocardial infarction; M06.8A Other specified rheumatoid arthritis, other specified site; Z79.69 Long term (current) use of other immunomodulators and immunosuppressants
CPT/HCPCS: 99283

== ENCOUNTER 2024-01-17 20:30 | Emergency (ER) | payer OTHER, SELFPAY ==
[2024-01-17 20:33] VITALS: BP 135/96; PULSE 82; RESP 10; TEMP 36.2; O2SAT 97
--- NOTE | 2024-01-19 09:02 | ED.GENADUL_ITS ---
Discharge Plan Disposition Patient Disposition: Home Condition: Stable Discharge Details Clinical Impression: Insect bite Primary Care Provider: Palomo Lofton ED Provider: Chelo Gifford Home Meds and New Rx's Prescriptions: Continued Stelara 90 mg/mL syringe 90 mg SUBCUT [id number] Discharge Instructions Additional Instructions: May apply hydrocortisone and topical Benadryl as needed may take oral benadryl for continued itching return earlier with significant spread in redness or should any concerns arise keep site clean and dry Referrals: Palomo Lofton [Primary Care Provider] - 1 day Discharge Data Discharge Date/Time-TO BE ENTERED AT DEPARTURE: 01/17/24 21:17 HPI General Date/Time Provider Initiated Documentation: 01/17/24 20:57 . HPI Narrative: This 48-year-old male presents with report of insect bite to chest. States he felt a sting and then smacked the insect. He is not sure what type of bug it was. He is concerned because there is been some spreading redness since that time. Denies any difficulty swallowing or shortness of breath. Denies any fever or chills. Related Data Home Medications ?Medication ?Instructions ?Recorded ?Confirmed ustekinumab 90 mg/mL subcutaneous 90 mg subcut [id number] 05/26/23 01/17/24 syringe (Stelara) Allergies Allergy/AdvReac Type Severity Reaction Status Date / Time No Known Allergies Allergy Unverified 01/17/24 20:38 General Stated Complaint: GenMedical GARLAND: 4 Exam Narrative Exam Narrative: Alert and oriented, no acute distress, oropharynx patent, uvula midline, lungs clear to auscultation, rash noted on anterior chest, approximately 1 cm area of redness. No urticarial lesions. Course Vital Signs Vital signs: Vital Signs Temperature 36.2 C L 01/17/24 20:33 Pulse 82 01/17/24 20:33 Respiratory Rate 10 L 01/17/24 20:33 Blood Pressure 135/96 H 01/17/24 20:33 Pulse Oximetry 97 01/17/24 20:33 Temperature 36.2 C L 01/17/24 20:33 Temperature Source Skin 01/17/24 20:33 Pulse 82 01/17/24 20:33 Respiratory Rate 10 L 01/17/24 20:33 Respiratory Effort Normal 01/17/24 21:09 Respiratory Depth Normal 01/17/24 21:09 Respiratory Pattern Normal 01/17/24 21:09 Blood Pressure 135/96 H 01/17/24 20:33 Blood Pressure Position Sitting 01/17/24 20:33 Pulse Oximetry 97 01/17/24 20:33 Oxygen Delivery Method Room Air 01/17/24 20:33 Oxygen Flow Rate 0 01/17/24 20:33 Pain Level 0 01/17/24 21:09 Medical Decision Making [id number] male presenting with irritation to chest after an insect bite. No evidence of anaphylaxis or evidence of secondary infection. Patient encouraged to apply hydrocortisone and Benadryl as needed and to return earlier with new or worsening complaints Quality:SDOH Health Related Social Needs: No Data to Display PFSH All Active Problems (Updated 01/17/24 @ 21:11 by ABDELRAHMAN Malik) Insect bite (Acute) Chest pain (Acute) Dyspnea on exertion (Acute) Mass of oropharynx (Acute) Medical History Chest pain [place] infarction[place]my[place] infarction) Psoriasis History of nephrolithotomy with removal of calculi Surgical History History of lumbar surgery Social History Smoking/Tobacco Use Status: Current every day Tobacco Type: e-cigarettes Tobacco: How many years used: 25 Smoking risk assessment performed?: Yes Alcohol Intake: current Alcohol Intake frequency: holidays/special occasions only Drug use: Never Substance use type: does not use Housing: house Do you feel safe at home: Yes Do you feel safe in your relationship?: Yes
== END 2024-01-17 21:17 | disposition home or self-care (01) ==
PROVIDERS: Emergency Provider Physician Assistant; PCP Neuromusculoskeletal Medicine & OMM
DX: W57.XXXA Bitten or stung by nonvenomous insect and other nonvenomous arthropods, initial encounter; S20.364A Insect bite (nonvenomous) of middle front wall of thorax, initial encounter
CPT/HCPCS: 99281; 99282

== ENCOUNTER 2024-06-19 20:46 | Emergency (ER) | payer SELFPAY ==
[2024-06-19 21:01] VITALS: BP 112/82; PULSE 66; RESP 16; TEMP 36.9; O2SAT 98
--- NOTE | 2024-06-19 21:08 | ED.GENADUL_ITS ---
Discharge Plan Disposition Patient Disposition: Home Condition: Stable Discharge Details Clinical Impression: Dog bite of abdomen Primary Care Provider: Palomo Lofton ED Provider: Daksha Mckeon Home Meds and New Rx's Prescriptions: Continued Stelara 90 mg/mL syringe 90 mg SUBCUT [id number] amoxicillin-pot clavulanate 875-125 mg tablet 1 tab PO BID Discharge Instructions Instructions: Animal Bites ED Additional Instructions: Please continue to take the Augmentin as previously prescribed. Keep the area clean and dry. You may wash with soap and water daily. Keep it covered during the day. Allow to air dry at least 2 hours a day. No evidence of abscess noted. Follow up with primary care provider in 3-5 days. Return to ED sooner if any worsening or concerns. Referrals: Paloom Lofton [Primary Care Provider] - 5 days HPI General Mode of arrival: ambulatory . Date/Time Provider Initiated Documentation: 06/19/24 20:53 . Limitations to Documentation: no limitations . Information obtained by: patient, RN notes reviewed and old records reviewed . HPI Narrative: 48-year-old male presents to the ER with a chief complaint of dog bite to his lower right abdomen which occurred approximately 3 days ago. Patient was seen at [facility] and was prescribed Augmentin. He reports increased pain and drainage from the site. He does have a large area of ecchymosis with puncture wounds noted to his right lower abdomen. He reports diarrhea which is not unusual for him he is unsure of any blood in his stool or problems urinating. Does have tenderness with palpation. Denies any nausea vomiting or any other associated symptoms. Patient states that he got a tetanus shot on the at [facility]. Related Data Home Medications ?Medication ?Instructions ?Recorded ?Confirmed ustekinumab 90 mg/mL subcutaneous 90 mg subcut [id number] 05/26/23 06/19/24 syringe (Stelara) amoxicillin 875 mg-potassium 1 tab PO BID 06/19/24 06/19/24 clavulanate 125 mg tablet Allergies Allergy/AdvReac Type Severity Reaction Status Date / Time No Known Allergies Allergy Verified 06/19/24 20:55 General Stated Complaint: AnimalBite GRALAND: 3 Exam Narrative Exam Narrative: Constitutional: Alert and oriented x3. Appears stated age. Normal body habitus. Head: Normocephalic, no trauma. Eyes: Pupils PERRL, Red reflex noted, EOM's intact. Eyelids symmetrical without lesions, discharge, or swelling. ENT: Bilateral TM's WNL, External ear normal to inspection, no mastoid TTP, swelling, or erythema, Nasal turbinates WNL, no nasal discharge. Normal dentition, Posterior pharynx WNL, no exudate. Chest: RRR, Normal S1, S2, distal pulses intact. Resp: Lungs clear to auscultation bilaterally, no wheezes, rales, or rhonchi. Abdomen: Large area of ecchymosis noted to his right lower abdomen, there is puncture wounds noted. No obvious induration or purulent discharge noted. Musculoskeletal: Normal gait, Moves all 4 extremities without difficulty. Skin: No suspicious rashes or lesions. Capillary refill less than 2 sec. Neurologic: Cranial nerves II-XII intact. Alert and oriented x 3. Motor: No deficits noted. Sensory: Intact bilaterally all 4 extremities. Hematologic/Lymphatic: No ecchymosis, no lymphadenopathy. GI Abdomen image: 2 1. Area of ecchymosis noted with central areas of puncture wounds. Course Vital Signs Vital signs: Vital Signs Temperature 36.9 C 06/19/24 21:01 Pulse 66 06/19/24 21:01 Respiratory Rate 16 06/19/24 21:01 Blood Pressure 112/82 06/19/24 21:01 Pulse Oximetry 98 06/19/24 21:01 Temperature 36.9 C 06/19/24 21:01 Temperature Source Tympanic 06/19/24 21:01 Pulse 66 06/19/24 21:01 Respiratory Rate 16 06/19/24 21:01 Blood Pressure 112/82 06/19/24 21:01 Blood Pressure Position Supine 06/19/24 21:01 Pulse Oximetry 98 06/19/24 21:01 Oxygen Delivery Method Room Air 06/19/24 21:01 Oxygen Flow Rate 0 06/19/24 21:01 Pain Level 2 06/19/24 21:01 Medical Decision Making 48-year-old male presents to the ER with a chief complaint of dog bite to his lower right abdomen which occurred approximately 3 days ago. Patient was seen at [facility] and was prescribed Augmentin. He reports increased pain and drainage from the site. He does have a large area of ecchymosis with puncture wounds noted to his right lower abdomen. He reports diarrhea which is not unusual for him he is unsure of any blood in his stool or problems urinating. Does have tenderness with palpation. Denies any nausea vomiting or any other associated symptoms. Patient states that he got a tetanus shot on the at [facility]. Will check some labs give IV ampicillin, will CT to rule out developing abscess. CT shows some cellulitis but no developing abscess. Labs are largely unremarkable. Will encourage patient to continue taking the Augmentin as previously prescribed. We discussed wound care. This text was generated using [employer] dictation system, please disregard any oddities of phrase or misspellings. Imaging Data Radiologic Study: Imaging: CT Scan Radiologist's impression: Reproductive: There appears to be a penile piercing. It appears the patient is status post vasectomy. Bones/joints: Unremarkable. No acute fracture. Soft tissues: Involving the right lower quadrant skin and subcutaneous tissues there is some mild induration in the subcutaneous fat with skin edema. No drainable collection identified. IMPRESSION: Right-sided superficial changes of cellulitis without evidence for abscess. Thank you for allowing us to participate in the care of your patient. Dictated and Authenticated by: Elsie Perez MD Lab Data Lab results reviewed: Yes I reviewed the patient's lab results. Labs: 06/19/24 21:29 Blood Blood Culture - Pending 06/19/24 21:20 Blood Blood Culture - Pending Laboratory Tests Range/Units 06/19/24 21:20 WBC (4.4-10.8) 10^3/uL 8.63 RBC (4.36-5.78) 10^6/uL 5.36 Hgb (13.5-17.5) g/dL 16.5 Hct (40.0-50.0) % 47.5 MCV (80-95) fL 89 MCH (27.0-33.0) pg 30.8 MCHC (32.0-36.0) % 34.7 RDW (11.8-14.1) % 12.2 Plt Count (130-400) 10^3/uL 248 MPV (8.0-11.0) fL 8.3 Immature Gran % % 0.3 Neutrophils % % 56.0 Lymphocytes % % 31.7 Monocytes % % 7.8 Eosinophils % % 3.7 Basophils % % 0.5 Nucleated RBC % (0.0-0.3) % 0.0 Absolute Neutrophils (1.2-6.7) 10^3/uL 4.83 Absolute Lymphocytes (1.2-3.4) 10^3/uL 2.74 Absolute Monocytes (0.1-0.8) 10^3/uL 0.67 Absolute Eosinophils (0.0-0.7) 10^3/uL 0.32 Absolute Basophils (0.0-0.2) 10^3/uL 0.04 VBG Lactate (0.6-1.4) mmol/L 1.3 Sodium (136-145) mmol/L 141 Potassium (3.5-5.1) mmol/L 4.0 Chloride (98-107) mmol/L 103 Carbon Dioxide (21.0-32.0) mmol/L 28.5 Anion Gap (3-11) mmol/L 9.5 BUN (7-18) mg/dL 18 Creatinine (0.70-1.30) mg/dL 1.1 Est GFR (CKD-EPI 2020) (mL/min/1.73m2) 83.32 Glucose (74-106) mg/dL 90 Calcium (8.5-10.1) mg/dL 9.1 Magnesium (1.8-2.4) mg/dL 2.2 Total Bilirubin (0.2-1.0) mg/dL 0.41 AST (15-37) U/L 19 ALT (16-63) U/L 33 Alkaline Phosphatase (46-116) U/L 77 Total Protein (6.4-8.2) g/dL 7.5 Albumin (3.4-5.0) g/dL 3.9 Quality:SDOH Health Related Social Needs: 2 No Data to Display PFSH All Active Problems (Updated 06/19/24 @ 23:11 by Daksha Mckeon NP) Dog bite of abdomen (Acute) Chest pain (Acute) Dyspnea on exertion (Acute) Mass of oropharynx (Acute) Medical History Chest pain [place] (myocardial infarction) [place] (myocardial infarction) Psoriasis History of nephrolithotomy with removal of calculi Surgical History History of lumbar surgery Social History Smoking/Tobacco Use Status: Current every day Tobacco Type: e-cigarettes Tobacco: How many years used: 25 Smoking risk assessment performed?: Yes Alcohol Intake: current Alcohol Intake frequency: holidays/special occasions only Drug use: Never Substance use type: does not use Housing: house Do you feel safe at home: Yes Do you feel safe in your relationship?: Yes
[2024-06-19 21:38] LABS: Lactate 1.3 mmol/L (0.6-1.4)
[2024-06-19 21:40] LABS: Abs Immature Grans 0.03 10^3/uL (0.0-0.06); Absolute Basophil Count 0.04 10^3/uL (0.0-0.2); Absolute Eosinophil Count 0.32 10^3/uL (0.0-0.7); Absolute Lymphocyte Count 2.74 10^3/uL (1.2-3.4); Absolute Monocyte Count 0.67 10^3/uL (0.1-0.8); Absolute Neutrophil Count 4.83 10^3/uL (1.2-6.7); Basophils % 0.5 %; Eosinophils % 3.7 %; HCT 47.5 % (40.0-50.0); HGB 16.5 g/dL (13.5-17.5); Immature Grans % 0.3 %; Lymphocytes % 31.7 %; MCH 30.8 pg (27.0-33.0); MCHC 34.7 % (32.0-36.0); MCV 89 fL (80-95); MPV 8.3 fL (8.0-11.0); Monocytes % 7.8 %; Platelet Count 248 10^3/uL (130-400); RBC 5.36 10^6/uL (4.36-5.78); RDW 12.2 % (11.8-14.1); RDW-SD 39.6 fL; WBC 8.63 10^3/uL (4.4-10.8)
[2024-06-19 21:56] LABS: ALT 33 U/L (16-63); AST 19 U/L (15-37); Albumin 3.9 g/dL (3.4-5.0); Alkaline Phosphatase 77 U/L (46-116); Anion Gap 9.5 mmol/L (3-11); BUN 18 mg/dL (7-18); Bilirubin, Total 0.41 mg/dL (0.2-1.0); CO2 28.5 mmol/L (21.0-32.0); CREATININE 1.1 mg/dL (0.70-1.30); Calcium 9.1 mg/dL (8.5-10.1); Chloride 103 mmol/L (98-107); Estimated GFR 83.32 (mL/min/1.73m2); Glucose 90 mg/dL (74-106); Magnesium 2.2 mg/dL (1.8-2.4); Sodium 141 mmol/L (136-145); Total Protein 7.5 g/dL (6.4-8.2)
[2024-06-19] MEDS: Omnipaque 350 MG/ML 100 ML BTL IJ (22:12)
[2024-06-19] MEDS: Normal Saline - Diluent 50 ML VIAL IJ (22:14)
--- NOTE | 2024-06-19 22:19 | DI.CT_ITS ---
Exam(s) CT ABDOMEN PELVIS W EXAM: CT ABDOMEN PELVIS W CLINICAL HISTORY: Dog bite lower abdomen, r/O abscess. TECHNIQUE: Imaging Protocol: Axial computed tomography images with coronal and sagittal reformatted images were created and reviewed CONTRAST MATERIAL: Intravenous: Omnipaque 350 Contrast volume:100 ml Oral: yes no COMPARISON: CT CT CHEST PE ABD PELVIS W from 12/10/2022 FINDINGS: ABDOMEN and PELVIS: Lung Bases: No acute findings. Liver: Normal density. No suspicious mass. Gallbladder and biliary tract: No radiodense calculus. No wall thickening or pericholecystic fluid. No biliary dilation. Pancreas: Normal density. No abnormal calcifications or inflammatory process. No evidence of mass. Spleen: Normal. Kidneys: Normal size, contour and axis. No radiodense stones. No obstructive uropathy. No suspicious masses seen. Adrenal glands: No masses seen. Vasculature: Abdominal aorta non-dilated. Soft tissues: Mild skin thickening and edema in the adjacent fat in the right lower quadrant consiste nt with cellulitis. No evidence of foreign body or drainable collection. Small fatty containing umb ilical hernia. Bladder: No gross wall thickening. No calculi.No focal mass. Bowel: No obstruction. No bowel wall thickening. Appendix normal. Fatty of stool. Peritoneal cavity: No ascites. No focal collection. No mesenteric inflammatory response. No free air . Bones: Unremarkable for age. Reproductive organs: Penile piercing. Prostate normal size. Vasectomy clips. Lymph nodes: No pathologically enlarged lymph nodes. IMPRESSION:: Cellulitis of the right lower quadrant anterior abdominal wall. No evidence of drainab le abscess or collection. RADIATION DOSE DELIVERED: 745.37mGy.cm Total DLP DATA REPOSITORY: All CT scans at this facility are submitted to the National Radiology Data Registry (NRDR) Dose Index Registry (DIR) with the [employer] (ACR). RADIATION OPTIMIZATION: All CT scans at this facility use at least one of these dose optimization te chniques: automated exposure control; mA and/or kV adjustment per patient size (includes targeted exa ms where dose is matched to clinical indication); or iterative reconstruction.
[2024-06-19] MEDS: AMPICILLIN/SULBACTAM 3 GM in Normal Saline 100 ML IVPB (22:40)
--- NOTE | 2024-06-19 23:08 | DI.VRAD_ITS ---
PROCEDURE INFORMATION: Exam: CT Abdomen And Pelvis With Contrast Exam date and time: 06/19/2024 10:13 PM Age: 48 years old Clinical indication: Injury or trauma; Bite, open; Injury date: 06/17/24; Patient HX: Dog bite lower abd, R/O abscess TECHNIQUE: Imaging protocol: Computed tomography of the abdomen and pelvis with contrast. Radiation optimization: All CT scans at this facility use at least one of these dose optimization techniques: automated exposure control; mA and/or kV adjustment per patient size (includes targeted exams where dose is matched to clinical indication); or iterative reconstruction. Contrast material: [id number]; Contrast volume: 100 ml; Contrast route: INTRAVENOUS (IV); COMPARISON: CT CHEST PE ABD PELVIS W 12/10/2022 4:52 PM FINDINGS: Liver: Normal. No mass. Gallbladder and biliary ducts: Normal. No calcified stones. No ductal dilation. Pancreas: Normal. No ductal dilation. Spleen: Normal. No splenomegaly. Adrenal glands: Normal. No mass. Kidneys and ureters: Normal. No hydronephrosis. Stomach and bowel: Unremarkable. No obstruction. No mucosal thickening. Appendix: The appendix is well seen, within normal limits. Intraperitoneal space: Unremarkable. No free air. No significant fluid collection. Vasculature: Unremarkable. No abdominal aortic aneurysm. Lymph nodes: Unremarkable. No enlarged lymph nodes. Urinary bladder: Unremarkable as visualized. Reproductive: There appears to be a penile piercing. It appears the patient is status post vasectomy. Bones/joints: Unremarkable. No acute fracture. Soft tissues: Involving the right lower quadrant skin and subcutaneous tissues there is some mild induration in the subcutaneous fat with skin edema. No drainable collection identified. IMPRESSION: Right-sided superficial changes of cellulitis without evidence for abscess. Dictated and Authenticated by: Elsie Perez MD. Ordering:ISRAEL Crooks MD
[2024-06-19 23:12] LABS: Bilirubin Negative (Negative); Blood Negative (Negative); Clarity Clear (Clear); Glucose Negative (Negative); Ketones Negative (Negative); Leukocyte Esterase Negative (Negative); Nitrite Negative (Negative); Specific Gravity 1.015 (1.005-1.025); Urobilinogen 0.2 mg/dL (Up to 0.2); pH 6.5 (5-8)
== END 2024-06-19 23:19 | disposition home or self-care (01) ==
PROVIDERS: Emergency Provider Registered Nurse Emergency; PCP Neuromusculoskeletal Medicine & OMM
DX: S31.159A Open bite of abdominal wall, unspecified quadrant without penetration into peritoneal cavity, initial encounter (principal); W54.0XXA Bitten by dog, initial encounter; L03.311 Cellulitis of abdominal wall; Y99.0 Civilian activity done for income or pay
CPT/HCPCS: 80053; 87040; 96365; 99285; 74177; 81003; 83605; 83735; 85025; 99284; J0295; J3490

== ENCOUNTER 2024-10-25 21:17 | Emergency (ER) | payer OTHER, SELFPAY ==
--- NOTE | 2024-10-25 21:15 | RT.EKG_ITS ---
APPROVED REPORT Exam: Resting ECG Reason for Exam: CP Patient Location: E HR:83 bpm ECG Measurements Heart Rate 83 AXIS TX 141 P 58 QRSd 92 QRS 239 QT 361 T 65 QTc 425 Conclusion Sinus rhythm, rate 83 No interval abnormalities Q wave lead aVL, unchanged from prior No STEMI
--- NOTE | 2024-10-25 21:15 | DI.RAD_ITS ---
Exam(s) XR ELBOW LT COMPLETE EXAM: XR ELBOW LT COMPLETE CLINICAL HISTORY: Pain, no trauma. TECHNIQUE: 2D digital imaging was performed. Three views. COMPARISON: No exams were available for comparison FINDINGS: BONES: No acute fracture is present. No bony destructive lesion is seen. JOINTS: The elbow is normally aligned. No joint effusion is seen. SOFT TISSUE: Normal. IMPRESSION: Unremarkable radiographs of the left elbow. DATA REPOSITORY: RADIATION DOSE DELIVERED:
--- NOTE | 2024-10-25 21:15 | DI.RAD_ITS ---
Exam(s) XR CHEST 2V PA LATERAL EXAM: XR CHEST 2V PA LATERAL CLINICAL HISTORY: Chest pain TECHNIQUE: 2D digital imaging was performed. Two views. COMPARISON: CT CT CHEST PE ABD PELVIS W from 12/10/2022 FINDINGS: HEART: Normal size. Aorta: Not dilated. PULMONARY VASCULATURE: Normal. MEDIASTINUM: Unremarkable. LUNGS: Clear. PLEURAL SPACE: No pleural effusion or pneumothorax. BONE:Unremarkable for age. SOFT TISSUES: Unremarkable. IMPRESSION: No acute abnormality. The preliminary [facility] report was reviewed. DATA REPOSITORY: RADIATION DOSE DELIVERED:
--- NOTE | 2024-10-25 21:15 | DI.RAD_ITS ---
Exam(s) XR SHOULDER LT COMPLETE 2+V EXAM: XR SHOULDER LT COMPLETE 2+V CLINICAL HISTORY: Pain, no trauma. TECHNIQUE: 2D digital imaging was performed. Three views. COMPARISON: CR,XR XR SHOULDER RT COMPLETE 2+V from 06/23/2023 FINDINGS: BONES: No acute fracture is present. No bony destructive lesion is seen. JOINTS: No dislocation present. Mild degenerative changes of the AC joint. Glenohumeral joint space is maintained. SOFT TISSUE: Normal. IMPRESSION: Mild degenerative changes of the AC joint. The preliminary [facility] report was reviewed. DATA REPOSITORY: RADIATION DOSE DELIVERED:
[2024-10-25 21:20] VITALS: BP 115/86; PULSE 89; RESP 20; TEMP 36.9; O2SAT 98
--- NOTE | 2024-10-25 21:28 | ED.GENADUL_ITS ---
Discharge Plan Disposition Patient Disposition: Home Condition: Stable Discharge Details Clinical Impression: Elbow pain, left, Chest pain Primary Care Provider: Palomo Lofton ED Provider: Maegan Mei Home Meds and New Rx's Prescriptions: No Action ustekinumab [Stelara] 90 mg/mL syringe 90 mg SUBCUT [id number] Discharge Instructions Instructions: Elbow tendinopathy (tennis and golf elbow) Additional Instructions: You were seen in the emergency department today for evaluation of elbow pain, that is most concerning for tendinitis. You also shared with us that you have been experiencing chest pain for some time, you had an EKG that did not show sign of a heart attack and you have no sign of elevation of your cardiac enzymes that your laboratory studies. Your chest x-ray and x-ray of your shoulder and elbow showed no other abnormalities to account for your symptoms. Please use therapeutic dosing of Tylenol (acetaminophen) & Advil (ibuprofen) in an alternating fashion as follows: Take 1000mg of Tylenol every 6 hours without missing doses- that is 4 times per day. [place] in between the Tylenol doses, take 600mg of Advil also on a 6 hour schedule, that is also 4 times per day. With this strategy, you will be taking something for fever/pain as often as every 3 hours. The daily maximum dosing of Tylenol is 4000mg, and the daily maximum dosing of Advil is 2400mg. Please note that some common cold medications & prescription pain medications may contain acetaminophen and you need to read OTC drug labels and factor that in to maximum daily doses. Please follow-up with your primary care provider in the next few days to discuss this visit and any symptoms that change, worsen, or persist. Thank you for allowing us to be part of your care. Stand Alone Forms: Work Release HPI General Mode of arrival: ambulatory . Date/Time Provider Initiated Documentation: 10/25/24 21:18 . Limitations to Documentation: no limitations . Information obtained by: patient and old records reviewed . HPI Narrative: This is a 49-year-old male patient with a past medical history significant for VA, hyperlipidemia, PTSD, presenting for evaluation of left elbow, shoulder, and chest pain. He initially reports complaining of 3 weeks of left elbow pain, worse when he presses on it or attempts to use the left arm, specifically pushing type activities. He reports that he did not sustain specific injury to the area, but has been working on some vehicles and expects that he has some [id number] on that area. He states that he has not noted any worsening of this injury, does not use any medications for management of pain, and does not want any now. He was prompted to seek care tonight because his was concerned as he was continuing to complain of pain in that area, and prompted him to come in for an evaluation. The patient also reports intermittent pain in his anterior right shoulder, states that he has full range of motion and sometimes feels a clicking in that area. He states that he has had approximately 3 weeks of left-sided chest pain as well, which is not reproducible with deep breath or movement. He states that he does not follow with cardiology anymore and does not take any secondary prevention medications. Related Data Home Medications ?Medication ?Instructions ?Recorded ?Confirmed ustekinumab 90 mg/mL subcutaneous 90 mg subcut [id number] 05/26/23 10/25/24 syringe (Stelara) Allergies Allergy/AdvReac Type Severity Reaction Status Date / Time No Known Allergies Allergy Verified 10/25/24 21:24 General Stated Complaint: Orthopedic GARLAND: 3 Exam Narrative Exam Narrative: Gen: awake and alert, in no apparent distress. Appears well nourished. HEENT: PERRL, EOMs full and without nystagmus. External ears and nose normal, mucous membranes moist. Neck: Supple, full range of motion, no observable masses Lungs: No increased work of breathing, lung sounds clear and equal bilaterally without wheezes, rhonchi, or rales. CV: Heart with regular rate and rhythm, no murmurs auscultated. Strong and symmetrical radial pulses. Abdomen: Soft, nondistended, non-tender to palpation. No rigidity, rebound tenderness, or guarding. MSK: No joint swelling, no redness. Full ROM without limitation, no external traumatic findings. The patient does have tenderness to palpation over the lateral epicondyle region of his left elbow, no overlying skin changes, very mild swelling. No significant tenderness to palpation over the shoulder, full range of motion of both of these joints without significant reproduction of pain. Skin: No rashes or lesions to visualized skin. Normal color, warm, and dry. Neuro: Symmetrical face and clear speech, no focal motor deficits or weakness. No sensory deficits. Ambulates with steady gait. Psych: Appropriate for situation. Course Vital Signs Vital signs: Vital Signs Temperature 36.9 C 10/25/24 21:20 Pulse 89 10/25/24 21:20 Respiratory Rate 20 10/25/24 21:20 Blood Pressure 115/86 10/25/24 21:20 Pulse Oximetry 98 10/25/24 21:20 Temperature 36.9 C 10/25/24 21:20 Pulse 89 10/25/24 21:20 Respiratory Rate 20 10/25/24 21:20 Blood Pressure 115/86 10/25/24 21:20 Pulse Oximetry 98 10/25/24 21:20 Pain Level 5 10/25/24 21:20 Medical Decision Making This is a 49-year-old male patient presenting for evaluation of 3 weeks of left- sided chest pain, left shoulder and elbow pain. My differential includes but is not limited to ACS including STEMI, NSTEMI, unstable angina, certainly considered arrhythmia, pericarditis/myocarditis, aortic pathology. Considered pulmonary abnormalities including pneumonia, bronchitis, pleural effusion, pulmonary edema, reactive airway disease, pneumothorax. The patient is without tachycardia, hypoxia, or a pleuritic component to his pain to significantly increase my concern for pulmonary embolism, and he meets PERC criteria for PE rule out.. No GI symptoms or vomiting to suggest Boerhaave's, esophagitis, peptic ulcer disease, pancreatitis. Regarding his shoulder and elbow pain, which could certainly be referred if we are dealing with a cardiac etiology, I also considered in my differential musculoskeletal pathology including sprain, strain, fracture, dislocation. There is no evidence on my physical examination for septic arthritis, and I have a lower concern for inflammatory arthritis is such as gout or pseudogout. No evidence for neurovascular derangement. We obtained an EKG, which I reviewed, showing a sinus rhythm with a rate of 83, and no evidence of acute ischemia, interval abnormality, or ectopy. We will obtain laboratory studies to include CBC, CMP, magnesium, troponin, and I will obtain imaging to include chest x-ray, and x-ray of the left shoulder and left elbow. I offered the patient ice and analgesia such as Tylenol and ibuprofen, which he has declined. - I independently interpreted the laboratory studies, which show no significant leukocytosis, anemia, or thrombocytopenia. The chemistry panel is without evidence of electrolyte abnormality, kidney dysfunction, or liver injury. Troponin is negative, and given the several weeks of pain I do not see an indication at this time to proceed with delta troponins. X-ray imaging reviewed by myself, shows no evidence of intrapulmonary or thoracic abnormality, and no osseous abnormality in the shoulder or elbow. I am most concerned for tendinitis and sprain/strain. At this time, the patient has had a full medical evaluation and is safe for discharge to home. They are hemodynamically stable, ambulatory, and tolerating PO. They are understanding of the follow-up plan and return precautions. They left our facility without incident. Maegan Mei MD Quality:SDOH Health Related Social Needs: No Data to Display PFSH All Active Problems (Updated 10/25/24 @ 22:28 by Maegan Mei MD) Elbow pain, left (Acute) Chest pain (Acute) Dyspnea on exertion (Acute) Mass of oropharynx (Acute) Medical History Chest pain [place]my[place] infarction[place] (myocardial infarction) Psoriasis History of nephrolithotomy with removal of calculi Surgical History History of lumbar surgery Social History Smoking/Tobacco Use Status: Current every day Tobacco Type: e-cigarettes Tobacco: How many years used: 25 Smoking risk assessment performed?: Yes Alcohol Intake: current Alcohol Intake frequency: holidays/special occasions only Drug use: Never Substance use type: does not use Housing: house Do you feel safe at home: Yes Do you feel safe in your relationship?: Yes
[2024-10-25 21:49] LABS: Abs Immature Grans 0.02 10^3/uL (0.0-0.06); Absolute Basophil Count 0.05 10^3/uL (0.0-0.2); Absolute Eosinophil Count 0.15 10^3/uL (0.0-0.7); Absolute Lymphocyte Count 2.16 10^3/uL (1.2-3.4); Absolute Monocyte Count 0.55 10^3/uL (0.1-0.8); Absolute Neutrophil Count 5.18 10^3/uL (1.2-6.7); Basophils % 0.6 %; Eosinophils % 1.8 %; HCT 45.5 % (40.0-50.0); HGB 16.2 g/dL (13.5-17.5); Immature Grans % 0.2 %; Lymphocytes % 26.6 %; MCHC 35.6 % (32.0-36.0); MCV 87 fL (80-95); MPV 8.5 fL (8.0-11.0); Monocytes % 6.8 %; Platelet Count 244 10^3/uL (130-400); RBC 5.22 10^6/uL (4.36-5.78); RDW 12.3 % (11.8-14.1); RDW-SD 39.1 fL; WBC 8.11 10^3/uL (4.4-10.8)
[2024-10-25 22:11] LABS: ALT 39 U/L (16-63); AST 25 U/L (15-37); Alkaline Phosphatase 72 U/L (46-116); Anion Gap 5.6 mmol/L (3-11); BUN 16 mg/dL (7-18); Bilirubin, Total 0.5 mg/dL (0.2-1.0); CO2 30.4 mmol/L (21.0-32.0); CREATININE 1.1 mg/dL (0.70-1.30); Calcium 9.2 mg/dL (8.5-10.1); Chloride 103 mmol/L (98-107); Estimated GFR 82.81 (mL/min/1.73m2); Glucose 119 mg/dL (74-106); Magnesium 2.1 mg/dL (1.8-2.4); Potassium 4.4 mmol/L (3.5-5.1); Sodium 139 mmol/L (136-145); Total Protein 7.5 g/dL (6.4-8.2); Troponin I 8 ng/L (<or=76)
--- NOTE | 2024-10-25 22:23 | DI.VRAD_ITS ---
PROCEDURE INFORMATION: Exam: XR Left Elbow Exam date and time: 10/25/2024 10:01 PM Age: 49 years old Clinical indication: Swelling and other: Pain, no trauma; Elbow; Left TECHNIQUE: Imaging protocol: Radiologic exam of the left elbow. Views: 3 or more views. COMPARISON: CR XR SHOULDER LT COMPLETE 2+V 10/25/2024 9:58 PM FINDINGS: Bones/joints: Normal. Soft tissues: Normal. IMPRESSION: No acute findings. Dictated and Authenticated by: Lisandro Cain MD. Orderin St. Kulwant Issa MD
--- NOTE | 2024-10-25 22:24 | DI.VRAD_ITS ---
PROCEDURE INFORMATION: Exam: XR Left Shoulder Exam date and time: 10/25/2024 9:58 PM Age: 49 years old Clinical indication: Other: Pain, no trauma TECHNIQUE: Imaging protocol: Radiologic exam of the left shoulder. Views: 2 or more views. COMPARISON: CR XR SHOULDER LT COMPLETE 2+V 08/06/2019 4:03 PM FINDINGS: Bones/joints: Normal. Soft tissues: Normal. IMPRESSION: No acute findings. Dictated and Authenticated by: Lisandro Cain MD. Orderin [facility]. Kulwant Issa MD
--- NOTE | 2024-10-25 22:25 | DI.VRAD_ITS ---
PROCEDURE INFORMATION: Exam: XR Chest Exam date and time: 10/25/2024 9:57 PM Age: 49 years old Clinical indication: Other: Chest pain TECHNIQUE: Imaging protocol: Radiologic exam of the chest. Views: 2 views. COMPARISON: CT CHEST PE ABD PELVIS W 12/10/2022 4:52 PM FINDINGS: Lungs: Unremarkable. No consolidation. Pleural spaces: Unremarkable. No pleural effusion. No pneumothorax. Heart/Mediastinum: Unremarkable. No cardiomegaly. Bones/joints: Orthopedic anchor in the right humeral head. Bones and joints are otherwise unremarkable. IMPRESSION: No acute cardiopulmonary abnormality. Dictated and Authenticated by: Lisandro Cain MD. Orderin St. Kulwant Issa MD
[2024-10-25 22:36] VITALS: BP 131/85; PULSE 82; RESP 16; O2SAT 97
== END 2024-10-25 22:38 | disposition home or self-care (01) ==
PROVIDERS: Emergency Provider Emergency Medicine; PCP Neuromusculoskeletal Medicine & OMM
DX: M25.522 Pain in left elbow (principal); R07.9 Chest pain, unspecified; E78.5 Hyperlipidemia, unspecified; I25.2 Old myocardial infarction; F17.290 Nicotine dependence, other tobacco product, uncomplicated
CPT/HCPCS: 80053; 93005; 99284; 71046; 73030; 73080; 83735; 84484; 85025; 93010

== ENCOUNTER 2024-12-14 16:36 | Emergency (ER) | payer OTHER, SELFPAY ==
[2024-12-14] VITALS (7 sets, daily range): BP systolic 106–119; BP diastolic 74–85; PULSE 82–112; RESP 18; TEMP 36.6; O2SAT 93–97
--- NOTE | 2024-12-14 16:45 | DI.CT_ITS ---
Exam(s) CT ABDOMEN PELVIS W EXAM: CT ABDOMEN PELVIS W CLINICAL HISTORY: abdominal hernia surger thur, sudden ant mid pain TECHNIQUE: Imaging Protocol: Axial computed tomography images with coronal and sagittal reformatted images were created and reviewed. CONTRAST MATERIAL: Intravenous: Omnipaque 350 Contrast volume:100 mL Oral: No COMPARISON: CT CT CHEST PE ABD PELVIS W from 12/10/[address] ABDOMEN PELVIS W from 06/19/2024 FINDINGS: ABDOMEN: Lung Bases: No acute abnormality. Liver: Normal density. No measurable mass. Portal, Superior Mesenteric, and Splenic Veins: Unremarkable. Gallbladder and Biliary Tract: No radiodense calculus or dilation. Pancreas: Normal density, no abnormal calcifications or inflammatory process. Spleen: Normal. Adrenals: No masses seen. Kidneys: Normal size, contour and axis. No radiodense stones or obstructive uropathy. No masses seen. Abdominal Aorta: Abdominal portion non-dilated. Mild atherosclerotic calcification is present. Bowel: There is diverticulosis seen in the colon without evidence of acute diverticulitis. There is no evidence of bowel obstruction or bowel wall thickening. There is no evidence of appendicitis. Peritoneal Cavity: No ascites, collection or mesenteric inflammatory response. There is a small amount of free air seen in the upper abdomen. Lymph Nodes: Within normal limits. Bones: Within normal limits for the patient's age. Soft Tissues: There has been interval anterior abdominal wall hernia repair. There is infiltration in the soft tissues around the umbilicus. No focal fluid collection is seen to suggest an abscess. PELVIS: Bladder: Symmetric distention, no gross wall thickening. Reproductive Organs: Unremarkable as visualized. Lymph Nodes: Within normal limits. Bones: Within normal limits for the patient's age. IMPRESSION: 1. Interval anterior abdominal wall hernia repair. Infiltration is seen in the soft tissues surrounding the umbilicus but no focal fluid collection is seen to suggest an abscess. This infiltration is likely secondary to the patient's recent surgery. 2. Small amount of free air in the upper abdomen which may reflect the patient's recent surgery. Bowel perforation cannot be entirely excluded. 3. Colonic diverticulosis without evidence of acute diverticulitis. 4. The preliminary [facility] report was reviewed. RADIATION DOSE DELIVERED: 762.42mGy.cm Total DLP DATA REPOSITORY: All CT scans at this facility are submitted to the National Radiology Data Registry (NRDR) Dose Index Registry (DIR) with the [employer] (ACR). RADIATION OPTIMIZATION: All CT scans at this facility use at least one of these dose optimization techniques: automated exposure control; mA and/or kV adjustment per patient size (includes targeted exams where dose is matched to clinical indication); or iterative reconstruction.
--- NOTE | 2024-12-14 16:51 | W.ED.GENAD ---
Discharge Plan Disposition Patient Disposition: Against Medical Advice Condition: Stable Discharge Details Clinical Impression: Abdominal pain Primary Care Provider: Palomo Lofton ED Provider: Augusto Galeano Home Meds and New Rx's Prescriptions: Continued ustekinumab [Stelara] 90 mg/mL syringe 90 mg SUBCUT [id number] oxycodone 5 mg tablet 5 mg PO Q6H PRN Patient Comments: TAKE ONE TABLET BY MOUTH EVERY 6 HOURS NEEDED FOR PAIN Discharge Instructions Additional Instructions: You chose to leave before the results of the CAT scan returned. You can always return if you change your mind. I will call you with the results once I have them. I would recommend calling your surgeon tomorrow. If you feel more ill or have severe worsening pain again return to the emergency department for reevaluation Discharge Data Discharge Date/Time-TO BE ENTERED AT DEPARTURE: 12/14/24 18:11 HPI General Mode of arrival: ambulatory. Date/Time Provider Initiated Documentation: 12/14/24 16:37. Limitations to Documentation: no limitations. Information obtained by: patient. History of Present Illness 49 year old M presents to the emergency department with the chief complaint of abdominal pain, described as moderate, Quality is described as sharp, Patient abdomen. and it has been constant. No relieving factors improve symptom(s), No exacerbating factors reported . Patient notes no other symptoms.. Patient did receive the following treatments prior to arrival, none Related Data Home Medications ?Medication ?Instructions ?Recorded ?Confirmed ustekinumab 90 mg/mL subcutaneous 90 mg subcut [id number] 05/26/23 12/14/24 syringe (Stelara) oxycodone 5 mg tablet 5 mg PO Q6H PRN 12/14/24 12/14/24 Allergies Allergy/AdvReac Type Severity Reaction Status Date / Time No Known Allergies Allergy Verified 12/14/24 16:41 General Stated Complaint: Abd Prob GARLAND: 3 Review of Systems All systems reviewed & are unremarkable except as noted in HPI and below Constitutional Constitutional: Denies chills, Denies fever(s) and Denies weakness Cardiovascular Cardiovascular: Denies chest pain and Denies dyspnea Respiratory Respiratory: Denies cough and Denies dyspnea Gastrointestinal Gastrointestinal: Reports abdominal pain, Denies nausea and Denies vomiting Neurologic Neurologic: Denies weakness Exam Const General: no acute distress Orientation: alert HENMT Head: normal to inspection Ears: external ears normal General nose exam: external nose normal Mouth: moist mucous membranes Eyes General: appearance normal, both eyes and all related structures Neck Neck: normal visual inspection Resp Effort & Inspection: normal respiratory effort and able to speak in complete sentences Cardio Rate: regular rate GI Palpation: no guarding and tender Neuro General: patient alert and patient oriented x3 Extrem General: normal to inspection Psych Mental Status: mental status grossly normal Course Vital Signs Vital signs: Vital Signs Temperature 36.6 C 12/14/24 16:37 Pulse 112 H 12/14/24 16:37 Respiratory Rate 18 12/14/24 16:37 Blood Pressure 119/74 12/14/24 16:37 Pulse Oximetry 97 12/14/24 16:37 Temperature 36.6 C 12/14/24 16:42 Temperature Source Oral 12/14/24 16:42 Pulse 112 H 12/14/24 16:42 Respiratory Rate 18 12/14/24 16:42 Blood Pressure 119/74 12/14/24 16:42 Blood Pressure Position Sitting 12/14/24 16:42 Pulse Oximetry 97 12/14/24 16:42 Oxygen Delivery Method Room Air 12/14/24 16:42 Oxygen Flow Rate 0 12/14/24 16:42 Pain Level 3 12/14/24 16:42 Medical Decision Making 49-year-old male who states he had an abdominal hernia surgery done at [facility] on which was uncomplicated comes in with sudden onset abdominal pain. He states that some discomfort since the surgery that slowly been improving but then saw someone broke down on the side of the road and decided to get out and help them and was doing some work on the car when he had sudden onset mid anterior abdominal pain. Denies any vomiting, no falls. He is in no distress on exam. He has several well hearing surgical site incisions. He has some bruising around the surgical site just superior to the umbilicus and has tenderness in this area. There is no palpable hernia. I suspect he could have just aggravated the recent performed surgical sites but will obtain labs and a CT to exclude recurrent hernia Labs unremarkable, on my read of the CAT scan I do not see any recurrent hernias. 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 I advised we usually like to have patient stay until the return back. If there is something critical on the CT there is a potential he could deteriorate if he was not here in also risks chance of . He is willing accept these risks and has Medical Decision Making capacity. He is choosing to leave as medical advice. He is can follow-up with a surgeon this week. I will call him with results once they are back as well CT read as extraluminal air which is likely from his prior surgery. I called and spoke with the patient to inform of the results and he states he is feeling much better and has no pain so I do not ruptured viscus. He is can follow-up with his PCP and return precautions discussed Differential Diagnosis Differential Diagnosis: Recurrent hernia, postop pain Lab Data Lab results reviewed: Yes I reviewed the patient's lab results. PFSH All Active Problems (Updated 12/14/24 @ 18:08 by Augusto Galeano MD) Abdominal pain (Acute) Chest pain (Acute) Dyspnea on exertion (Acute) Mass of oropharynx (Acute) Medical History Chest pain [place]my[place] infarction[place] (my[place] infarction) Psoriasis History of nephrolithotomy with removal of calculi Surgical History History of lumbar surgery Social History Smoking/Tobacco Use Status: Current every day Tobacco Type: e-cigarettes Tobacco: How many years used: 25 Smoking risk assessment performed?: Yes Alcohol Intake: current Alcohol Intake frequency: holidays/special occasions only Drug use: Never Substance use type: does not use Housing: house Do you feel safe at home: Yes Do you feel safe in your relationship?: Yes
[2024-12-14] MEDS: Ketorolac 15 MG/ML VIAL IVP (17:02)
[2024-12-14 17:09] LABS: Abs Immature Grans 0.02 10^3/uL (0.0-0.06); HCT 47.9 % (40.0-50.0); HGB 17.0 g/dL (13.5-17.5); Immature Grans % 0.2 %; MCH 30.9 pg (27.0-33.0); MCHC 35.5 % (32.0-36.0); MCV 87 fL (80-95); MPV 8.4 fL (8.0-11.0); Platelet Count 287 10^3/uL (130-400); RBC 5.50 10^6/uL (4.36-5.78); RDW 11.9 % (11.8-14.1); RDW-SD 38.0 fL; WBC 8.71 10^3/uL (4.4-10.8)
[2024-12-14 17:26] LABS: ALT 32 U/L (16-63); AST 18 U/L (15-37); Albumin 3.9 g/dL (3.4-5.0); Alkaline Phosphatase 74 U/L (46-116); Anion Gap 11.3 mmol/L (3-11); BUN 18 mg/dL (7-18); Bilirubin, Total 0.6 mg/dL (0.2-1.0); CO2 25.7 mmol/L (21.0-32.0); Calcium 9.2 mg/dL (8.5-10.1); Chloride 103 mmol/L (98-107); Estimated GFR 92.84 (mL/min/1.73m2); Glucose 100 mg/dL (74-106); Lipase 40 U/L (<78); Magnesium 2.1 mg/dL (1.8-2.4); Potassium 3.6 mmol/L (3.5-5.1); Sodium 140 mmol/L (136-145); Total Protein 7.6 g/dL (6.4-8.2)
[2024-12-14] MEDS: Normal Saline - Diluent 50 ML VIAL IJ (17:37)
[2024-12-14] MEDS: Omnipaque 350 MG/ML 100 ML BTL IJ (17:39)
--- NOTE | 2024-12-14 19:05 | DI.VRAD_ITS ---
Addendum created by Elsie Perez MD on 12/14/2024 7:06:37 PM EDT: I discussed case findings with Augusto Galeano 12/14/2024 7:05 PM EDT. Initial report created on 12/14/2024 7:04:50 PM EDT: PROCEDURE INFORMATION: Exam: CT Abdomen And Pelvis With Contrast Exam date and time: 12/14/2024 5:39 PM Age: 49 years old Clinical indication: Other: Abdominal hernia surger thur, sudden ant mid pain; Prior surgery; Surgery date: 3-7 days post-operative; Surgery type: Abd hernia surgery TECHNIQUE: Imaging protocol: Computed tomography of the abdomen and pelvis with contrast. Radiation optimization: All CT scans at this facility use at least one of these dose optimization techniques: automated exposure control; mA and/or kV adjustment per patient size (includes targeted exams where dose is matched to clinical indication); or iterative reconstruction. Contrast material: OMNI 350; Contrast volume: 100 ml; Contrast route: INTRAVENOUS (IV); COMPARISON: CT ABDOMEN PELVIS W 06/19/2024 10:13 PM FINDINGS: Liver: Normal. No mass. Gallbladder and biliary ducts: Normal. No calcified stones. No ductal dilation. Pancreas: Normal. No ductal dilation. Spleen: Normal. No splenomegaly. Adrenal glands: Normal. No mass. Kidneys and ureters: Normal. No hydronephrosis. Stomach and bowel: Unremarkable. No obstruction. No mucosal thickening. Appendix: No evidence of appendicitis. Intraperitoneal space: There is extraluminal air with in the omentum in both upper quadrants anteriorly. Appearance is not typical for free intraperitoneal air. This is seen at the upper abdominal level only. No additional extraluminal air noted. Vasculature: Mild atherosclerotic change noted in the vasculature. Lymph nodes: Unremarkable. No enlarged lymph nodes. Urinary bladder: Unremarkable as visualized. Reproductive: Unremarkable as visualized. Bones/joints: Moderate lumbar spondylosis. Soft tissues: There is some soft tissue stranding in the periumbilical region, presumed postsurgical change. IMPRESSION: Upper abdominal extraluminal air could be related to recent surgery. Perforated viscus not entirely excludable. Dictated and Authenticated by: Elsie Perez MD. Orderin Froylan Casas MD
== END 2024-12-14 18:11 | disposition left against medical advice (07) ==
PROVIDERS: Emergency Provider Emergency Medicine; PCP Neuromusculoskeletal Medicine & OMM
DX: R10.9 Unspecified abdominal pain (principal); I25.2 Old myocardial infarction; F17.290 Nicotine dependence, other tobacco product, uncomplicated; Z98.890 Other specified postprocedural states
CPT/HCPCS: 36415; 80053; 83690; 96374; 99285; 74177; 83735; 85025; 99284; J1885; J3490

== ENCOUNTER 2025-03-11 15:42 | Emergency (ER) | payer OTHER, SELFPAY ==
[2025-03-11 15:42] VITALS: BP 136/84; PULSE 85; TEMP 36.6; O2SAT 98
--- NOTE | 2025-03-11 15:45 | DI.RAD_ITS ---
Exam(s) XR THUMB RT EXAM: XR THUMB RT CLINICAL HISTORY: Right thumb pain dog bite. TECHNIQUE: 2D digital imaging was performed of the right finger. Three views were obtained. PA/AP, oblique, and lateral views were obtained. COMPARISON: CR XR THUMB RT from 12/11/2022 FINDINGS: BONES: No acute fracture is present. No bony destructive lesion is seen. JOINTS: No dislocation present. SOFT TISSUE: No radiopaque foreign body or soft tissue gas is noted. IMPRESSION: No evidence of acute fracture or dislocation. DATA REPOSITORY: RADIATION DOSE DELIVERED:
[2025-03-11 15:48] VITALS: BP 136/84; PULSE 85; TEMP 36.6; O2SAT 98
--- NOTE | 2025-03-11 16:02 | ED.GENADUL_ITS ---
Discharge Plan Disposition Patient Disposition: Home Discharge Details Clinical Impression: Dog bite of right thumb, Immunization, tetanus-diphtheria Primary Care Provider: Palomo Lofton ED Provider: Jhon Lopez Home Meds and New Rx's Prescriptions: New amoxicillin-pot clavulanate 875-125 mg tablet 1 tab PO BID 7 Days Qty: 14 0RF Continued ustekinumab [Stelara] 90 mg/mL syringe 90 mg SUBCUT [id number] Discharge Instructions Additional Instructions: You are seen in the emergency department for dog bite. Your x-ray showed no sign of any broken bones nor any retained teeth. As we discussed please take this antibiotic as directed. Please return to the emergency department if you develop streaking signs of infection fevers or any foul-smelling drainage. Otherwise please follow-up as needed primary care provider. For your pain please take medications as follows: 1. Take acetaminophen (Tylenol), 1,000 mg (two 500 mg tabs) every 6 hours [2. Take ibuprofen (Advil), 400 mg every 6 hours.] Discharge Data Discharge Date/Time-TO BE ENTERED AT DEPARTURE: 03/11/25 16:44 HPI General Date/Time Provider Initiated Documentation: 03/11/25 15:51 . HPI Narrative: MDM Primary survey intact. Reassuring shock index. On secondary survey patient has hemostatic lacerations to the right thumb with pain with range of motion for to undergo x-ray to assess for any acute osseous abnormalities and any retained foreign bodies. Will also update tetanus status and initiate antibiotic treatment with amoxicillin/clavulanate acid. I suspect that the patient has no acute osseous abnormalities nor any retained foreign bodies in the that he will be discharged on amoxicillin clavulanic acid. He is slightly higher risk given his ustekinumab treatment for his psoriasis. Nonetheless in the absence of an overt infection less than 10 hours since his injury and N/Ado not feel he requires operative washout at this early juncture. He has no pain out of proportion to suggest necrotizing soft tissue infection. Given the locations of his lacerations and is intact range of motion I am not concerned for any acute tendon injuries that would require operative repair. 4:37 PM X-ray showed no evidence of any acute fractures or dislocations. Patient and I discussed that he should return to the emergency department if he developed streaking signs of infection fevers or any foul-smelling drainage. Advised PCP follow-up otherwise. HPI The patient presents via private vehicle for a dog bite. The patient was bitten by his own dogs during a fight at 10:30 this morning. He is right-handed and has been able to use his hand, although with some discomfort. The bite wound is located on his knuckle and was bleeding significantly. He managed to rinse the wound but had to leave for work immediately after. He has not taken any pain medication yet. He is currently on Stelara, an immunosuppressant, for psoriasis. Exam General: Well-appearing in no acute distress speaking in complete sentences. Head: Normocephalic, atraumatic. Eye: Extraocular eye movements intact. No conjunctival injection. No scleral icterus. Ear, nose, mouth, throat: Grossly normal inspection. Normal voice, handling secretions normally. Neck: Trachea midline. Cardiovascular: Well-perfused distal extremities. Respiratory: Nonlabored respiration. Gastrointestinal: Nondistended abdomen. Musculoskeletal: On the right thumb there are 3 hemostatic lacerations as shown in the photos that follow: On the anterior surface of the right thumb there are 2 puncture wounds. Wounds are hemostatic. On the posterior aspect of the right thumb there is 1 hemostatic wound. Patient has intact range of motion in the right thumb on flexion and extension at the MCP and IP joints. His range of motion is slightly limited secondarily to pain. He can both radially and ulnarly deviate his thumb. Cap refill less than 2 seconds in right thumb. 2+ right radial pulse. Skin: Normal for age and race, grossly normal temperature and turgor. No acute rash. Neurologic: Alert and appropriate, no apparent acute deficits. GCS 15. Psychiatric: Mood and manner are appropriate. Grooming and personal hygiene are appropriate. Related Data Home Medications ?Medication ?Instructions ?Recorded ?Confirmed ustekinumab 90 mg/mL subcutaneous 90 mg subcut [id number] S 05/26/23 03/11/25 syringe (Stelara) amoxicillin 875 mg-potassium 1 tab PO BID 7 days #14 t abs 03/11/25 clavulanate 125 mg tablet Previous Rx's ?Medication ?Instructions ?Recorded amoxicillin 875 mg-potassium 1 tab PO BID 7 days #14 t abs 03/11/25 clavulanate 125 mg tablet Allergies Allergy/AdvReac Type Severity Reaction Status Date / Time No Known Allergies Allergy Verified 03/11/25 15:47 General Stated Complaint: AnimalBite GARLAND: 3 Course Vital Signs Vital signs: Vital Signs Temperature 36.6 C 03/11/25 15:42 Pulse 85 03/11/25 15:42 Blood Pressure 136/84 03/11/25 15:42 Pulse Oximetry 98 03/11/25 15:42 Temperature 36.6 C 03/11/25 15:48 Temperature Source Temporal Artery Scan 03/11/25 15:48 Pulse 85 03/11/25 15:48 Blood Pressure 136/84 03/11/25 15:48 Blood Pressure Position Sitting 03/11/25 15:48 Pulse Oximetry 98 03/11/25 15:48 Oxygen Delivery Method Room Air 03/11/25 15:48 Oxygen Flow Rate 0 03/11/25 15:48 Pain Level 6 03/11/25 15:48 PFSH All Active Problems (Updated 03/11/25 @ 16:07 by Jhon Lopez MD) Immunization, tetanus-diphtheria (Acute) Dog bite of right thumb (Acute) Chest pain (Acute) Dyspnea on exertion (Acute) Mass of oropharynx (Acute) Medical History Chest pain [place]my[place] infarction[place]my[place] infarction) Psoriasis History of nephrolithotomy with removal of calculi Surgical History History of lumbar surgery Social History Smoking/Tobacco Use Status: Current every day Tobacco Type: e-cigarettes Tobacco: How many years used: 25 Smoking risk assessment performed?: Yes Alcohol Intake: current Alcohol Intake frequency: holidays/special occasions only Drug use: Never Substance use type: does not use Housing: house Do you feel safe at home: Yes Do you feel safe in your relationship?: Yes
[2025-03-11] MEDS: Ibuprofen 600 MG TAB PO (16:04)
[2025-03-11] MEDS: Acetaminophen 500 MG TAB 1000 MG PO (16:04)
[2025-03-11] MEDS: Amoxicillin 875/Clav. 125 TAB PO (16:04)
[2025-03-11] MEDS: Diph,Pertuss(Acell),Tet Vac/Pf 0.5 ML SYR IM (16:05)
[2025-03-11 16:42] VITALS: RESP 15
== END 2025-03-11 16:44 | disposition home or self-care (01) ==
PROVIDERS: Emergency Provider Emergency Medicine; PCP Neuromusculoskeletal Medicine & OMM
DX: S61.051A Open bite of right thumb without damage to nail, initial encounter (principal); W54.0XXA Bitten by dog, initial encounter; Z23 Encounter for immunization
CPT/HCPCS: 99283 ×2; 90471; 90715; 73140

== ENCOUNTER 2025-03-12 12:39 | Emergency (ER) | payer OTHER, SELFPAY ==
[2025-03-12 12:45] VITALS: BP 132/83; PULSE 76; RESP 15; TEMP 36.6; O2SAT 98
[2025-03-12 15:05] VITALS: BP 130/63; PULSE 70
--- NOTE | 2025-03-12 15:59 | ED.GENADUL_ITS ---
Discharge Plan Disposition Patient Disposition: Home Discharge Details Clinical Impression: Dog bite of right thumb Primary Care Provider: Palomo Lofton ED Provider: Chelo Gifford Home Meds and New Rx's Prescriptions: Continued ustekinumab [Stelara] 90 mg/mL syringe 90 mg SUBCUT [id number] amoxicillin-pot clavulanate 875-125 mg tablet 1 tab PO BID 7 Days Qty: 14 0RF Discharge Instructions Instructions: Animal Bites ED Additional Instructions: Take the antibiotic as prescribed Motrin and Tylenol for pain Hot water bottle over this site several times daily Elevate above your heart is much as possible to allow to heal recheck sunday Return earlier with fever, chills, or with any new or worsening complaints Referrals: Palomo Lofton [Primary Care Provider, Medicine] Discharge Data Discharge Date/Time-TO BE ENTERED AT DEPARTURE: 03/12/25 15:24 HPI General Date/Time Provider Initiated Documentation: 03/12/25 13:22 . HPI Narrative: This 49-year-old male presents 1 day after dog bite which occurred yesterday. He started was taken 2 doses of Augmentin. States his pain is slightly worse in his right thumb. Has had updated tetanus. He states that there is pus coming out of the wound. On 1 side. He denies any fever or chills. He states the pain started last night. He denies any fever or chills he is immunosuppressed with a history of psoriasis on Stelara. Related Data Home Medications ?Medication ?Instructions ?Recorded ?Confirmed ustekinumab 90 mg/mL subcutaneous 90 mg subcut [id number] S 05/26/23 03/14/25 syringe (Stelara) amoxicillin 875 mg-potassium 1 tab PO BID 7 days #14 t abs 03/11/25 03/14/25 clavulanate 125 mg tablet Previous Rx's ?Medication ?Instructions ?Recorded amoxicillin 875 mg-potassium 1 tab PO BID 7 days #14 t abs 03/11/25 clavulanate 125 mg tablet Allergies Allergy/AdvReac Type Severity Reaction Status Date / Time No Known Allergies Allergy Verified 03/14/25 13:47 General Stated Complaint: Laceration GARLAND: 3 Exam Narrative Exam Narrative: Right thumb with bite wound noted, 2 puncture wounds, mild swelling, tenderness predominantly medially with some serosanguineous drainage noted, and no lymphangitis tenderness over the IP joint. No crepitus Course Vital Signs Vital signs: Vital Signs Temperature 36.6 C 03/12/25 12:45 Pulse 76 03/12/25 12:45 Respiratory Rate 15 03/12/25 12:45 Blood Pressure 132/83 03/12/25 12:45 Pulse Oximetry 98 03/12/25 12:45 Temperature 36.6 C 03/12/25 12:45 Temperature Source Temporal Artery Scan 03/12/25 12:45 Pulse 70 03/12/25 15:05 Respiratory Rate 15 03/12/25 12:45 Blood Pressure 130/63 03/12/25 15:05 Blood Pressure Mean 85 03/12/25 15:05 Blood Pressure Position Sitting 03/12/25 12:45 Pulse Oximetry 98 03/12/25 12:45 Oxygen Delivery Method Room Air 03/12/25 12:45 Oxygen Flow Rate 0 03/12/25 12:45 Pain Level 5 03/12/25 12:45 Medical Decision Making I reviewed patient's x-ray from yesterday which did not show acute abnormality, patient will continue on Augmentin the wound was cleansed and a splint was placed. I did discuss the case with Dr. Valle, orthopedics and he feels like antibiotics for the next 24 to 48 hours is reasonable and we will have patient come to the emergency department for reassessment at that time. He is encouraged to wear splint and elevate the hand above his heart. He will continue on antibiotics as prescribed. He will apply warm compresses and return immediately should he develop fever, chills, or systemic signs of illness or significant change or worsening of symptoms. [facility] All Active Problems (Updated 03/14/25 @ 15:00 by Jhon Lopez MD) Immunization, tetanus-diphtheria (Acute) Dog bite of right thumb (Acute) Chest pain (Acute) Dyspnea on exertion (Acute) Mass of oropharynx (Acute) Medical History Chest pain [place]my[place] infarction[place] (myocardial infarction) Psoriasis History of nephrolithotomy with removal of calculi Surgical History History of lumbar surgery Social History Smoking/Tobacco Use Status: Current every day Tobacco Type: e-cigarettes Tobacco: How many years used: 25 Smoking risk assessment performed?: Yes Alcohol Intake: current Alcohol Intake frequency: holidays/special occasions only Drug use: Never Substance use type: does not use Housing: house Do you feel safe at home: Yes Do you feel safe in your relationship?: Yes
== END 2025-03-12 15:24 | disposition home or self-care (01) ==
PROVIDERS: Emergency Provider Physician Assistant; PCP Neuromusculoskeletal Medicine & OMM
DX: S61.051A Open bite of right thumb without damage to nail, initial encounter (principal); W54.0XXA Bitten by dog, initial encounter
CPT/HCPCS: 99283 ×2

== ENCOUNTER 2025-03-14 13:35 | Emergency (ER) | payer OTHER, SELFPAY ==
[2025-03-14 13:41] VITALS: BP 126/76; PULSE 95; RESP 16; TEMP 36.8; O2SAT 95
--- NOTE | 2025-03-14 13:42 | ED.GENADUL_ITS ---
Discharge Plan Disposition Patient Disposition: Home Discharge Details Clinical Impression: Dog bite of right thumb Primary Care Provider: Palomo Lofton ED Provider: Jhon Lopez Home Meds and New Rx's Prescriptions: Continued ustekinumab [Stelara] 90 mg/mL syringe 90 mg SUBCUT [id number] amoxicillin-pot clavulanate 875-125 mg tablet 1 tab PO BID 7 Days Qty: 14 0RF Discharge Instructions Additional Instructions: You were seen in the emergency department for your thumb pain. Please continue taking antibiotics as we discussed. Please return to emergency department if you develop any fevers chills or streaking signs of infection. Otherwise please follow-up with his primary care provider. [facility] General Date/Time Provider Initiated Documentation: 03/14/25 13:42 . HPI Narrative: MDM This is a quite well-appearing normothermic and not tachycardic [id number] 49-year-old male with healing right thumb dog bite for which patient will receive ongoing outpatient treatment on prophylactic amoxicillin clavulanic acid with strict return indications. No subsequent trauma to suggest benefit from additional plain films. Patient has preserved range of motion in his thumb though does have some pain. There is no fluctuance to suggest abscess. No significant erythema to suggest increased risk for cellulitis. No pain out of proportion to suggest necrotizing soft tissue infection. Patient and I discussed that he should continue wearing his splint at home. We discussed that he should minimize his activities. 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 We discussed that he should return to the emergency department if he developed any worsening pain or decreased range of motion or if he had any other concerns. He understood his return indications and was discharged with an empiric trial of expectant outpatient management. HPI Patient was seen in the emergency department earlier this week following a thumb injury. He was seen on 03/11 in the setting of a dog bite. He is on immunosuppressants for psoriasis. He reports that his thumb has been improving. He denies any fevers streaking signs of infection or any foul-smelling drainage. He did have an interval ED visit 2 days ago in which he had a splint performed. He reports that he has been feeling well tolerating p.o. with no other nausea or vomiting. Exam General: Well-appearing in no acute distress speaking in complete sentences. Head: Normocephalic, atraumatic. Eye: Extraocular eye movements intact. No conjunctival injection. No scleral icterus. Ear, nose, mouth, throat: Grossly normal inspection. Normal voice, handling secretions normally. Neck: Trachea midline. Cardiovascular: Well-perfused distal extremities. Respiratory: Nonlabored respiration. Gastrointestinal: Nondistended abdomen. Musculoskeletal: Right thumb with healing wound. Mild swelling. No significant erythema nor warmth. No fluctuance. No foul-smelling drainage. Patient can fully flex and extend at both the MCP and IP joints of the right thumb. He has ability to ulnar and radially deviate his right thumb. Skin: Normal for age and race, grossly normal temperature and turgor. No acute rash. Neurologic: Alert and appropriate, no apparent acute deficits. Psychiatric: Mood and manner are appropriate. Grooming and personal hygiene are appropriate. Related Data Home Medications ?Medication ?Instructions ?Recorded ?Confirmed ustekinumab 90 mg/mL subcutaneous 90 mg subcut [id number] S 05/26/23 03/14/25 syringe (Stelara) amoxicillin 875 mg-potassium 1 tab PO BID 7 days #14 t abs 03/11/25 03/14/25 clavulanate 125 mg tablet Previous Rx's ?Medication ?Instructions ?Recorded amoxicillin 875 mg-potassium 1 tab PO BID 7 days #14 t abs 03/11/25 clavulanate 125 mg tablet Allergies Allergy/AdvReac Type Severity Reaction Status Date / Time No Known Allergies Allergy Verified 03/14/25 13:47 General [place]: 3 PFSH All Active Problems (Updated 03/14/25 @ 15:00 by Jhon Lopez MD) Immunization, tetanus-diphtheria (Acute) Dog bite of right thumb (Acute) Chest pain (Acute) Dyspnea on exertion (Acute) Mass of oropharynx (Acute) Medical History Chest pain Old ME (myocardial infarction) Old ME (myocardial infarction) Psoriasis History of nephrolithotomy with removal of calculi Surgical History History of lumbar surgery Social History Smoking/Tobacco Use Status: Current every day Tobacco Type: e-cigarettes Tobacco: How many years used: 25 Smoking risk assessment performed?: Yes Alcohol Intake: current Alcohol Intake frequency: holidays/special occasions only Drug use: Never Substance use type: does not use Housing: house Do you feel safe at home: Yes Do you feel safe in your relationship?: Yes
[2025-03-14 14:15] VITALS: BP 126/76; PULSE 95; RESP 16; TEMP 36.8; O2SAT 95
== END 2025-03-14 15:02 | disposition home or self-care (01) ==
PROVIDERS: Emergency Provider Emergency Medicine; PCP Neuromusculoskeletal Medicine & OMM
DX: S61.051D Open bite of right thumb without damage to nail, subsequent encounter (principal); W54.0XXD Bitten by dog, subsequent encounter
CPT/HCPCS: 99282; 99281

== ENCOUNTER → 2025-05-19 00:38 | Outpatient (CLI) | payer MEDICAID, SELFPAY ==
--- NOTE | 2025-05-19 | DI.US_ITS ---
Exam(s) US SOFT TISSUE EXTREMITY EXAM: US SOFT TISSUE EXTREMITY CLINICAL HISTORY: SWELLING MASS LUMP R22.9 PARESTHESIA OF SKIN R20.2 PAINFUL NODULE PROXIMAL. TECHNIQUE: Ultrasound was performed using standard protocol. COMPARISON: No exams were available for comparison FINDINGS: Sonographic assessment utilizing grayscale and color Doppler imaging was performed and targeted to the area of clinical concern. There is a well-circumscribed 1.1 x 0.4 x 1.2 cm subcutaneous lesion which is isoechoic to the subcutaneous fat. This is most suggestive of a lipoma. This corresponds to the palpable area of concern. IMPRESSION: Findings most suggestive sonographically of a 1.1 cm lipoma in the left forearm. DATA REPOSITORY:
== END ==
LOC: DI 00:38
PROVIDERS: PCP Neuromusculoskeletal Medicine & OMM; Visit Provider Specialist/Technologist Athletic Trainer
DX: D17.22 Benign lipomatous neoplasm of skin and subcutaneous tissue of left arm (principal); R20.2 Paresthesia of skin
CPT/HCPCS: 76881